=== PATIENT | female | born 1955 | race Hispanic/Latino ===

== ENCOUNTER 2016-12-05 00:52 | Emergency (ER) | payer MEDICAID, OTHER ==
[2016-12-05 01:01] VITALS: TEMP 98.1
--- NOTE | 2016-12-05 01:43 | C.PDOC ---
History Of Present Illness <Zulay Abraham - Last Filed: 12/05/16 07:00> <Neyda Rangel - Last Filed: 12/05/16 07:32> 61-year-old female, PMHx includes Diabetes, Hypertension and Hypercholesterolemia, presents to the emergency department c/o right sided chest wall pain that developed for 2 days. Pt states she has left knee pain from surgery done November 30. Pt notes experiencing right upper back pain that began this morning. Pt states the pain is excruciating that starts from back to chest area that is worse with movement and is reproducible. Pt denies trauma, SOB, palpitation, abdominal pain, fever, chills, nausea, vomiting, or any other complaints. (Zulay Abraham) History Per: Patient History/Exam Limitations: no limitations Onset/Duration Of Symptoms: Days Current Symptoms Are (Timing): Still Present Severity: Mild Location Of Pain/Discomfort: Other (Chest wall pain) Exacerbating Factors: Movement Recent travel outside of the [place]: No Additional History Per: Patient Abnormal Vaginal Bleeding: No <Zulay Abraham - Last Filed: 12/05/16 07:00> <Neyda Rangel - Last Filed: 12/05/16 07:32> Time Seen by Provider: 12/05/16 01:36 Chief Complaint (Nursing): Abdominal Pain Past Medical History - Medical History PMH: Diabetes, HTN, Hypercholesterolemia Family History: States: Unknown Family Hx - Social History Hx Tobacco Use: No Hx Alcohol Use: No Hx Substance Use: No - Immunization History Hx Tetanus Toxoid Vaccination: No Hx Influenza Vaccination: No Hx Pneumococcal Vaccination: No <Zulay Abraham - Last Filed: 12/05/16 07:00> Review Of Systems Except As Marked, All Systems Reviewed And Found Negative. Constitutional: Negative for: Fever, Chills, Other (Trauma) Cardiovascular: Positive for: Chest Pain. Negative for: Palpitations Respiratory: Negative for: Shortness of Breath Gastrointestinal: Negative for: Nausea, Vomiting, Abdominal Pain Musculoskeletal: Positive for: Back Pain (Upper back pain) <Zulay Abraham - Last Filed: 12/05/16 07:00> Physical Exam - Physical Exam Appears: Non-toxic, No Acute Distress Skin: Warm, Dry, Other (Left foot blister at the base of the 4-5 toe, filled with clear fluid) Head: Atraumatic, Normacephalic Eye(s): bilateral: Normal Inspection Neck: Trachea Midline, Supple Chest: Symmetrical, No Deformity, Tenderness (Reproducible tenderness to the right chest wall over the 9-12 intercostal spaces.) Cardiovascular: Rhythm Regular Respiratory: Normal Breath Sounds, No Rales, No Rhonchi, No Wheezing Gastrointestinal/Abdominal: Soft, No Tenderness Back: Normal Inspection, No CVA Tenderness, No Vertebral Tenderness, No Paraspinal Tenderness Extremity: No Pedal Edema, Capillary Refill (<2secs), No Deformity, Other (Left knee inmobilizer and incision over the left knee, healing well. No erythema or draining) Neurological/Psych: Oriented x3, Normal Speech, Normal Cognition, Normal Sensation <Zulay Abraham - Last Filed: 12/05/16 07:00> ED Course And Treatment - Laboratory Results Result Diagrams: 12/05/16 03:09 12/05/16 03:09 ECG: Interpreted By Me, Viewed By Me ECG Interpretation: No Changes From Prior Interpretation Of ECG: Sinus tachy@106/min, NAD, RSR, no acute T wave or ST-T changes. O2 Sat by Pulse Oximetry: 99 (RA) Pulse Ox Interpretation: Normal - CT Scan/US CT abd/pelvis Other Rad Studies (CT/US): Radiology Report Reviewed CT/US Interpretation: EXAM: CT Abdomen and Pelvis Without Intravenous Contrast. CLINICAL HISTORY: 61 years old, female; Pain and signs and symptoms ; Vomiting; Abdominal pain; Flank; Right;. Additional info: Right flank, right abd pain. TECHNIQUE: Axial computed tomography images of the abdomen and pelvis without intravenous contrast. This. CT exam was performed using one or more of the following dose reduction techniques: automated. exposure control, adjustment of the mA and/or kV according to patient size, and/or use of iterative. reconstruction technique. Coronal and sagittal reformatted images were created and reviewed. COMPARISON: No relevant prior studies available. FINDINGS: Lower thorax: Minimal atelectasis. ABDOMEN: Liver: Unremarkable. Gallbladder and bile ducts: Calcified gallstones. No ductal dilation. Pancreas : Unremarkable. No ductal dilation. Spleen: No splenomegaly. Adrenals: No mass. Kidneys and ureters: No renal calculi. No hydronephrosis. Stomach and bowel: Few scattered diverticula within colon. No associated inflammatory stranding. No definite mural thickening. No obstruction. Appendix: Borderline enlarged proximal appendix, 6-7 mm in diameter. No definite associated. inflammatory stranding. PELVIS: Bladder: Unremarkable. No stones. Reproductive: Unremarkable as visualized. ABDOMEN and PELVIS: Intraperitoneal space: No significant fluid collection. No free air. Bones/joints: Mild degenerative changes of spine. No acute fracture. Soft tissues: Unremarkable. Vasculature: Mild atherosclerotic disease. No abdominal aortic aneurysm. Lymph nodes: No pathologically enlarged lymph nodes. IMPRESSION: 1. No CT evidence of urolithiasis. 2. Borderline enlarged appendix. No definite inflammation. Clinical correlation is needed. 3. Cholelithiasis. 4. Incidental/non-acute findings are described above. Thank you for allowing us to participate in the care of your patient. Dictated and Authenticated by: Rg Ramsey MD. 12/05 4:35 AM Eastern Time ([place] & [place]) Progress Note: Impression: 61 y/o female c/o right sided chest wall pain for 2 days. Plans: CT Abd/Pel, EKG, Blood labs, CXR, Zofran, IV fluids, Ultram. On re-evaluation, pt is afebrile, hemodynamicaly stable. Non-toxic. Pt is sleeping in bed comfortably, not in any apparent distress. Pt had episode of vomiting in ED, " feels better after vomiting". <Zulay Abraham - Last Filed: 12/05/16 07:00> - Laboratory Results Result Diagrams: 12/05/16 03:09 12/05/16 03:09 Progress Note: Pt was signed out to me at 7am pending discharge. Pt was evaluated at 7am. Pt notes she had pain "under my right rib". TTP RUQ. No TTP RLQ. (+) fluid blister on left foot. No pain to foot. no trauma . Pulse 2+ . Cap refill < 2 sec. No n/v/d or fever. Tolerating PO. No chest pain. No sob. Discussed CT results with pt including enlarged appendix. Offered observation for pt. Pt refused noting she feels well and requests discharge. Pt does not want to stay in the hospital. Discsused with risks and benefits and pt reiterates understanding. Pt was instructed to follow up with PMD/ podiatry in 1 -2 days. <Neyda Rangel - Last Filed: 12/05/16 07:32> Disposition Counseled Patient/Family Regarding: Diagnosis, Need For Followup - Disposition Disposition Time: 07:01 <Zulay Abraham - Last Filed: 12/05/16 07:00> <Neyda Rangel - Last Filed: 12/05/16 07:32> - Disposition Referrals: Ben Kenney MD [Staff Provider] - Disposition: HOME/ ROUTINE Condition: STABLE - Clinical Impression Clinical Impression: Abdominal pain, UTI (urinary tract infection) - Scribe Statement The provider has reviewed the documentation as recorded by the Scribe <Zulay Abraham - Last Filed: 12/05/16 07:00> <Neyda Rangel - Last Filed: 12/05/16 07:32> - Scribe Statement Kit blum All medical record entries made by the Scribe were at my direction and personally dictated by me. I have reviewed the chart and agree that the record accurately reflects my personal performance of the history, physical exam, medical decision making, and the department course for this patient. I have also personally directed, reviewed, and agree with the discharge instructions and disposition. (Zulay Abraham)
[2016-12-05] MEDS ORDERED: Sodium Chloride 0.9% 500 ML IV ONE (02:12)
[2016-12-05 03:16] LABS: BASO # 0.1 K/uL (0.0-0.2); BASO % 0.7 % (0.0-2.0); EOS # 0.3 K/uL (0.0-0.7); EOS % 3.7 % (0.0-4.0); HEMATOCRIT 32.1 % (34.0-47.0); LYMPH # 2.5 K/uL (1.0-4.3); LYMPH % 30.4 % (20.0-40.0); MEAN CELL VOLUME 89.1 fL (81.0-99.0); MEAN CORPUSCULAR HEMOGLOBIN 30.3 pg (27.0-31.0); MEAN CORPUSCULAR HGB CONC 34.1 g/dL (33.0-37.0); MEAN PLATELET VOLUME 6.7 fL (7.2-11.7); MONO # 0.6 K/uL (0.0-0.8); RED CELL DISTRIBUTION WIDTH 14.4 % (11.5-14.5); WHITE BLOOD COUNT 8.3 K/uL (4.8-10.8)
[2016-12-05 03:22] LABS: CHLORIDE 103 mmol/L (98-107); POTASSIUM 4.2 mmol/L (3.6-5.2); SODIUM 141 mmol/L (132-148)
[2016-12-05 03:24] LABS: ALB/GLOB RATIO 1.2 (1.0-2.1); ALKALINE PHOSPHATASE 55 U/L (38-126); AST/SGOT 18 U/L (14-36); BILIRUBIN,TOTAL 0.6 mg/dL (0.2-1.3); CARBON DIOXIDE 27 mmol/L (22-30); GFR AFRICAN-AMERICAN > 60; TOTAL PROTEIN 7.5 g/dL (6.3-8.3)
[2016-12-05 03:25] LABS: ALT/SGPT 17 U/L (9-52); BLOOD UREA NITROGEN 23 mg/dL (7-17); CALCIUM 8.9 mg/dl (8.6-10.4); GLUCOSE,RANDOM 184 mg/dL (65-105)
--- NOTE | 2016-12-05 04:36 | CT ---
EXAM: CT Abdomen and Pelvis Without Intravenous Contrast CLINICAL HISTORY: 61 years old, female; Pain and signs and symptoms; Vomiting; Abdominal pain; Flank; Right; Additional info: Right flank, right abd pain TECHNIQUE: Axial computed tomography images of the abdomen and pelvis without intravenous contrast. This CT exam was performed using one or more of the following dose reduction techniques: automated exposure control, adjustment of the mA and/or kV according to patient size, and/or use of iterative reconstruction technique. Coronal and sagittal reformatted images were created and reviewed. COMPARISON: No relevant prior studies available. FINDINGS: Lower thorax: Minimal atelectasis. ABDOMEN: Liver: Unremarkable. Gallbladder and bile ducts: Calcified gallstones. No ductal dilation. Pancreas: Unremarkable. No ductal dilation. Spleen: No splenomegaly. Adrenals: No mass. Kidneys and ureters: No renal calculi. No hydronephrosis. Stomach and bowel: Few scattered diverticula within colon. No associated inflammatory stranding. No definite mural thickening. No obstruction. Appendix: Borderline enlarged proximal appendix, 6-7 mm in diameter. No definite associated inflammatory stranding. PELVIS: Bladder: Unremarkable. No stones. Reproductive: Unremarkable as visualized. ABDOMEN and PELVIS: Intraperitoneal space: No significant fluid collection. No free air. Bones/joints: Mild degenerative changes of spine. No acute fracture. Soft tissues: Unremarkable. Vasculature: Mild atherosclerotic disease. No abdominal aortic aneurysm. Lymph nodes: No pathologically enlarged lymph nodes. IMPRESSION: 1. No CT evidence of urolithiasis. 2. Borderline enlarged appendix. No definite inflammation. Clinical correlation is needed. 3. Cholelithiasis. 4. Incidental/non-acute findings are described above.
[2016-12-05 06:59] VITALS: RESP 16
[2016-12-05 07:01] LABS: RBC URINE 1 /hpf (0-3); URINE BACTERIA FEW (<OCC); URINE BILIRUBIN NEGATIVE (NEGATIVE); URINE BLOOD NEGATIVE (NEGATIVE); URINE COLOR Yellow (YELLOW); URINE GLUCOSE (UA) 3+ mg/dL (Normal); URINE KETONE TRACE mg/dL (NEGATIVE); URINE LEUKOCYTE ESTERASE 1+ Leu/uL (Negative); URINE PROTEIN 1+ mg/dL (NEGATIVE); URINE UROBILINOGEN NORMAL mg/dL (0.2-1.0); WBC URINE 37 /hpf (0-5)
[2016-12-05 07:22] VITALS: O2SAT 100
[2016-12-05] MEDS ORDERED: cefTRIAXone IV 1 gm in Dextros 0 ML IVPB ONE (07:25)
[2016-12-05 08:57] VITALS: BP 188/99; PULSE 104
--- NOTE | 2016-12-05 11:04 | RAD ---
HISTORY: abd pain All abdominal pain. COMPARISON: 08/23/2016. TECHNIQUE: Chest PA and lateral FINDINGS: LUNGS: No active pulmonary disease. PLEURA: No significant pleural effusion identified. No pneumothorax apparent. CARDIOVASCULAR: No radiographic findings to suggest acute or significant cardiovascular disease. OSSEOUS STRUCTURES: No significant abnormalities. VISUALIZED UPPER ABDOMEN: Normal. OTHER FINDINGS: None. IMPRESSION: No active disease. No significant interval change compared to the prior examination(s).
--- NOTE | 2016-12-07 02:01 | CARD ---
APPROVED REPORT EKG Measurement Heart [id number] <Conclusion> Sinus tachycardia RSR' or QR pattern in V1 suggests right ventricular conduction delay Septal infarct, age undetermined Abnormal ECG
== END 2016-12-05 09:58 | disposition home or self-care (01) ==
LOC: C.ER 00:52
DX: N39.0 Urinary tract infection, site not specified (principal)
CPT/HCPCS: 71020; 74176; 80053; 81001; 82948; 83690; 84484; 85025; 85610; 85730; 93005; 96361; 96374; 96375; 99285; J0696; J2405; J2765; J7040

== ENCOUNTER 2017-01-13 09:32 | Emergency (ER) | payer MEDICAID, OTHER ==
[2017-01-13 09:50] VITALS: O2SAT 99
--- NOTE | 2017-01-13 11:01 | C.PDOC ---
History Of Present Illness 61 y/o female presents to ED who reports slip and fall today, complaining of pain to the left knee. Patient reports surgery to left knee 2 months ago for patellar fracture. Denies any head injury or LOC, new weakness, or new numbness. No other injuries reported. Time Seen by Provider: 01/13/17 09:46 Chief Complaint (Nursing): Lower Extremity Problem/Injury History Per: Patient History/Exam Limitations: no limitations Onset/Duration Of Symptoms: Hrs Current Symptoms Are (Timing): Still Present Recent travel outside of the [place]: No Past Medical History Reviewed: Historical Data, Nursing Documentation, Vital Signs Vital Signs: Last Vital Signs Temp 97.9 F 01/13/17 14:19 Pulse 78 01/13/17 14:19 Resp 20 01/13/17 14:19 BP 172/84 H 01/13/17 14:19 Pulse Ox 99 01/13/17 14:19 - Medical History PMH: Diabetes, HTN, Hypercholesterolemia - [facility] Procedures OTH NONOPER CARD AND VASC MEASURE (01/07/14) OTHER SKIN & SUBQ I D (09/29/13) Family History: States: Unknown Family Hx - Social History Hx Tobacco Use: No Hx Alcohol Use: No Hx Substance Use: No - Immunization History Hx Tetanus Toxoid Vaccination: No Hx Influenza Vaccination: No Hx Pneumococcal Vaccination: No Review Of Systems Except As Marked, All Systems Reviewed And Found Negative. Constitutional: Negative for: Fever, Chills Cardiovascular: Negative for: Chest Pain Respiratory: Negative for: Cough, Shortness of Breath, Wheezing Gastrointestinal: Negative for: Nausea, Vomiting, Abdominal Pain Musculoskeletal: Positive for: Other (Left Knee Pain) Skin: Negative for: Rash Neurological: Negative for: Weakness, Numbness Physical Exam - Physical Exam Appears: Non-toxic, No Acute Distress Skin: Normal Color, Warm, Dry Head: Atraumatic, Normacephalic Eye(s): bilateral: Normal Inspection Neck: Normal ROM, No Midline Cervical Tenderness, No Paracervical Tenderness, Supple Chest: Symmetrical Cardiovascular: Rhythm Regular Respiratory: Normal Breath Sounds, No Rales, No Rhonchi, No Wheezing Back: Normal Inspection, No Vertebral Tenderness, No Paraspinal Tenderness Extremity: Normal ROM, Capillary Refill (< 2 sec.), No Deformity, Other ( diffuse anterior left knee tenderness and swelling, unable to fully extend the knee due to pain) Neurological/Psych: Oriented x3, Normal Speech, Normal Motor, Normal Sensation Gait: Unable To Assess ED Course And Treatment O2 Sat by Pulse Oximetry: 99 (RA) Pulse Ox Interpretation: Normal - Other Rad Left Knee X-Ray X-Ray: Viewed By Me, Read By Radiologist Interpretation: FINDINGS: BONES: Fracture dislocation of the patella. Two fracture fragments are by approximately 3.7 cm. Soft tissue swelling attests to the acuity of the fracture. JOINTS: Normal. No osteoarthritis. JOINT EFFUSION: None. OTHER FINDINGS: None. IMPRESSION: Acute comminuted fracture dislocation of the left patella. Separation the major fracture fragments by 3.7 cm. Medical Decision Making Medical Decision Making: PLAN: * Left Knee X-Rays * Tylenol * Reassess PROGRESS: XRay reviewed by me and Dr Wheeler. Radiologist report reviewed stating acute patellar fracture. Patient had history of prior fracture, xray film does not appear acute. Knee immobilizer applied. Instruct patient to follow up with her surgeon. Transportation arranged for patient to return home Disposition - Disposition Referrals: Uriel Landeros MD [Staff Provider] - Disposition: HOME/ ROUTINE Disposition Time: 14:00 Condition: STABLE Additional Instructions: Follow up with your primary medical doctor and surgeon in 2-5 days for further evaluation. Take pain medicine as needed. Return to the emergency department at any time if symptoms persist or worsen. Instructions: Patellar Fracture (ED), Knee Pain (ED) - POA Present On Arrival: None - Clinical Impression Clinical Impression: Contusion of knee - PA / CORPORATE COMPLIANCE OFFICER / Resident Statement MD/DO has reviewed & agrees with the documentation as recorded. - Scribe Statement The provider has reviewed the documentation as recorded by the Larry Piña All medical record entries made by the Larry were at my direction and personally dictated by me. I have reviewed the chart and agree that the record accurately reflects my personal performance of the history, physical exam, medical decision making, and the department course for this patient. I have also personally directed, reviewed, and agree with the discharge instructions and disposition.
--- NOTE | 2017-01-13 11:56 | RAD ---
PROCEDURE: Left Knee Radiographs. HISTORY: Pain. COMPARISON: None. FINDINGS: BONES: Fracture dislocation of the patella. Two fracture fragments are by approximately 3.7 cm. Soft tissue swelling attests to the acuity of the fracture. JOINTS: Normal. No osteoarthritis. JOINT EFFUSION: None. OTHER FINDINGS: None. IMPRESSION: Acute comminuted fracture dislocation of the left patella. Separation the major fracture fragments by 3.7 cm.
[2017-01-13 14:21] VITALS: BP 172/84; PULSE 78; RESP 20; TEMP 97.9
== END 2017-01-13 14:25 | disposition home or self-care (01) ==
LOC: C.ER 09:32
DX: S80.02XA Contusion of left knee, initial encounter (principal); W01.0XXA Fall on same level from slipping, tripping and stumbling without subsequent striking against object, initial encounter; Y92.9 Unspecified place or not applicable

== ENCOUNTER 2017-01-16 16:16 | Inpatient (IN) | payer OTHER ==
[2017-01-16 17:42] LABS: BASO % 0.7 % (0.0-2.0); EOS # 0.1 K/uL (0.0-0.7); HEMOGLOBIN 10.2 g/dL (11.0-16.0); LYMPH # 1.9 K/uL (1.0-4.3); MEAN CELL VOLUME 86.1 fL (81.0-99.0); MEAN CORPUSCULAR HEMOGLOBIN 28.5 pg (27.0-31.0); MEAN CORPUSCULAR HGB CONC 33.1 g/dL (33.0-37.0); MEAN PLATELET VOLUME 7.3 fL (7.2-11.7); MONO # 0.4 K/uL (0.0-0.8); MONO % 6.3 % (0.0-10.0); NEUT # 4.5 K/uL (1.8-7.0); RBC 3.57 Mil/uL (3.80-5.20); WHITE BLOOD COUNT 7.1 K/uL (4.8-10.8)
[2017-01-16 17:51] LABS: GFR AFRICAN-AMERICAN > 60; GFR NON-AFRICAN AMERICAN > 60
[2017-01-16 17:52] LABS: ALT/SGPT 20 U/L (9-52); AST/SGOT 15 U/L (14-36); BLOOD UREA NITROGEN 24 mg/dL (7-17); CALCIUM 9.3 mg/dl (8.6-10.4)
--- NOTE | 2017-01-16 18:21 | C.PDOC ---
History Of Present Illness Patient is a 61 y/o female, whose PMHx includes depression, that brought to the ED by BLS for psych evaluation. Patient states she has been feeling " overwhelmed and stressed" by her son, who has bipolar disorder. Pt states she called her counselor and had told them that she "doesn't want to be here", but patient denies any suicidal ideation, or suicidal plan in the ER, and states she didn't mean to say that. Patient also complains of left knee and foot pain for the past several days. Patient reports being seen here for left knee pain 3 days ago, and was found to have left patellar fracture. Also reports being seen by revenue specialist for left foot infection., and reports her foot was burned, but is not healing yet. Otherwise, denies any sensory changes, weakness, numbness, fever, or any other associated symptoms at this time. Chief Complaint (Nursing): Psychiatric Evaluation History Per: Patient History/Exam Limitations: no limitations Onset/Duration Of Symptoms: Days Current Symptoms Are (Timing): Still Present Suicide/Self Injury Attempted (Context): None Modifying Factor(s): None Associated Symptoms: denies: Suicidal Thoughts, Suicidal Plan Involuntary Hold By: None Recent travel outside of the [place]: No Additional History Per: Patient, EMS Past Medical History Reviewed: Historical Data, Nursing Documentation, Vital Signs Vital Signs: Last Vital Signs Temp 98.3 F 01/16/17 16:45 Pulse 86 01/16/17 16:45 Resp 20 01/16/17 16:45 BP 175/81 H 01/16/17 16:45 Pulse Ox 96 01/16/17 18:39 - Medical History PMH: Depression, Diabetes, HTN, Hypercholesterolemia - [facility] Procedures OTH NONOPER CARD AND VASC MEASURE (01/07/14) OTHER SKIN & SUBQ I D (09/29/13) Family History: States: Unknown Family Hx - Social History Hx Tobacco Use: No Hx Alcohol Use: No Hx Substance Use: No - Immunization History Hx Tetanus Toxoid Vaccination: No Hx Influenza Vaccination: No Hx Pneumococcal Vaccination: No Review Of Systems Except As Marked, All Systems Reviewed And Found Negative. Constitutional: Negative for: Fever, Chills Cardiovascular: Negative for: Chest Pain, Palpitations Respiratory: Negative for: Shortness of Breath Gastrointestinal: Negative for: Nausea, Vomiting, Abdominal Pain Musculoskeletal: Positive for: Leg Pain (left knee), Foot Pain (left) Skin: Negative for: Rash Neurological: Negative for: Weakness, Numbness Psych: Negative for: Suicidal ideation Physical Exam - Physical Exam Appears: Non-toxic, No Acute Distress Skin: Warm, Dry, Other (erythema to dorsum of left foot) Head: Atraumatic, Normacephalic Eye(s): bilateral: Normal Inspection, EOMI Neck: Normal ROM, Supple Chest: Symmetrical, No Tenderness Cardiovascular: Rhythm Regular, No Murmur Respiratory: Normal Breath Sounds, No Rales, No Rhonchi, No Wheezing Extremity: Normal ROM, Tenderness (left knee; tenderness to dorsum aspect of 3rd , 4th, and 5th metacarpal of left foot, granulation noted to left foot ), No Pedal Edema, No Calf Tenderness, Capillary Refill (<2 sec.), No Deformity, Swelling (left knee, effusion of the left knee), Other ( left foot with ulcer, no drainage) Pulses: Left Dorsalis Pedis: Normal, Right Dorsalis Pedis: Normal Neurological/Psych: Oriented x3, Normal Speech, Normal Cognition, Normal Motor, Normal Sensation ED Course And Treatment - Laboratory Results Result Diagrams: 01/16/17 17:37 01/16/17 17:37 O2 Sat by Pulse Oximetry: 96 (on RA) Pulse Ox Interpretation: Normal - Radiology CXR: Interpreted by Me CXR Interpretation: Yes: No Acute Disease Progress Note: Blood work, urinalysis, CXR, and left foot x-ray ordered and reviewed. Patient was cleared by lock up worker. Case was reported to who admits for pt's PMD . Disposition - Disposition Disposition: HOSPITALIZED Disposition Time: 19:01 Condition: STABLE - Clinical Impression Clinical Impression: Diabetic foot ulcer, Depression, Knee pain - PA / HEAD OF SALES [employer] MARKETING / Resident Statement MD/DO has reviewed & agrees with the documentation as recorded. - Scribe Statement The provider has reviewed the documentation as recorded by the Rosemaryibpepe Mercado All medical record entries made by the Rosemaryibpepe were at my direction and personally dictated by me. I have reviewed the chart and agree that the record accurately reflects my personal performance of the history, physical exam, medical decision making, and the department course for this patient. I have also personally directed, reviewed, and agree with the discharge instructions and disposition. Decision To Admit - Pt Status Changed To: Hospital Disposition Of: Observation - . Bed Request Type: Regular Admitting Physician: Kg Mercado Patient Diagnosis: Diabetic foot ulcer, Depression, Knee pain
[2017-01-16] MEDS ORDERED: Piperacillin/Tazobact 3.375 gm 100 ML IVPB ONE (20:36)
[2017-01-16] MEDS: Piperacillin/Tazobact 3.375 gm 100 ML IV STA ×2 (20:38→22:00)
[2017-01-16] MEDS: Vancomycin 1 GM 1 GM/250 ML BAG IV STA ×2 (20:38→22:43)
[2017-01-16] MEDS ORDERED: Vancomycin 1 GM 1 GM/250 ML BAG IVPB ONE (22:34)
[2017-01-17 01:36] VITALS: RESP 20
[2017-01-17 07:54] LABS: BARBITURATES, UR NEGATIVE (NEGATIVE); BENZODIAZEPINES, UR NEGATIVE (NEGATIVE)
[2017-01-17 07:57] LABS: OPIATES, UR NEGATIVE (NEGATIVE); PHENCYCLIDINE, UR NEGATIVE (NEGATIVE); SQUAMOUS EPITHIAL 1 /hpf (0-5); URINE BACTERIA RARE (<OCC); URINE BILIRUBIN NEGATIVE (NEGATIVE); URINE BLOOD NEGATIVE (NEGATIVE); URINE CLARITY Clear (Clear); URINE COLOR Yellow (YELLOW); URINE GLUCOSE (UA) 1+ mg/dL (Normal); URINE LEUKOCYTE ESTERASE 1+ Leu/uL (Negative); URINE NITRATE NEGATIVE (NEGATIVE); URINE PROTEIN NEGATIVE (NEGATIVE); URINE UROBILINOGEN NORMAL mg/dL (0.2-1.0)
--- NOTE | 2017-01-17 09:51 | RAD ---
PROCEDURE: Left Foot Radiographs. HISTORY: diabetic foot infection COMPARISON: None. FINDINGS: BONES: . No fracture. JOINTS: First metatarsal-phalangeal joint hypertrophic arthrosis SOFT TISSUES: Increased soft tissue swelling and faint increased density with apparent bandage overlying the metatarsal phalangeal joint level. Relative osteopenia along the medial aspect of the 5th and also 4th metatarsal heads here is noted. No gross periosteal reaction appreciated no lateral cortical ill definition appreciated. OTHER FINDINGS: None. IMPRESSION: Lateral 5th metatarsal phalangeal joint level soft tissue swelling with increased density - findings probably relating to patient's foot infection-diabetic. Although no gross periosteal reaction or gross cortical destruction is appreciated to strongly suggest osteomyelitis, the marked medial osteopenia of the medial 5th metatarsal head and to a lesser extent the 4th and 3rd metatarsal heads) limits optimal evaluation here. . If more sensitive evaluation is needed consider MRI of the left foot
--- NOTE | 2017-01-17 10:40 | RAD ---
PROCEDURE: CHEST RADIOGRAPH, 1 VIEW HISTORY: depression, diabetic foot infection COMPARISON: 12/05/2016 FINDINGS: LUNGS: No focal infiltrate or effusion. PLEURA: No pneumothorax or pleural fluid seen. CARDIOVASCULAR: Normal. OSSEOUS STRUCTURES: No significant abnormalities. VISUALIZED UPPER ABDOMEN: Normal. OTHER FINDINGS: None. IMPRESSION: No active disease.
[2017-01-17] MEDS: Piperacillin/Tazobact 3.375 GM in Sodium Chloride 100 ML IVPB SCH ×2 (10:48→17:22)
[2017-01-17] MEDS: Enoxaparin 40 mg Syringe SC SCH ×2 (10:48→13:07)
--- NOTE | 2017-01-17 11:22 | CP.PCM.HP ---
Past Patient History - Infectious Disease Hx of Infectious Diseases: None - Past Medical History & Family History Past Medical History?: Yes - Past Social History Smoking Status: Never Smoked - CARDIAC Hx Cardiac Disorders: Yes Hx Hypercholesterolemia: Yes Hx Hypertension: Yes - PULMONARY Hx Respiratory Disorders: No - NEUROLOGICAL Hx Neurological Disorder: Yes Hx Vertigo: Yes - HEENT Hx HEENT Problems: No - RENAL Hx Chronic Kidney Disease: No - ENDOCRINE/METABOLIC Hx Endocrine Disorders: Yes Hx Diabetes Mellitus Type 2: Yes - HEMATOLOGICAL/ONCOLOGICAL Hx Blood Disorders: No - INTEGUMENTARY Hx Dermatological Problems: Yes - MUSCULOSKELETAL/RHEUMATOLOGICAL Hx Musculoskeletal Disorders: Yes Hx Falls: Yes - GASTROINTESTINAL Hx Gastrointestinal Disorders: No - GENITOURINARY/GYNECOLOGICAL Hx Genitourinary Disorders: No - PSYCHIATRIC Hx Psychophysiologic Disorder: Yes Hx Depression: Yes Hx Substance Use: No - SURGICAL HISTORY Hx Surgeries: Yes Hx Section: Yes Hx Musculoskeletal Surgery: Yes (Left knee surgery) - ANESTHESIA Hx Anesthesia: Yes Hx Anesthesia Reactions: No Hx Malignant Hyperthermia: No Has any member of the family had a problem w/ anesthesia?: No Meds Allergies/Adverse Reactions: Allergies Allergy/AdvReac Type Severity Reaction Status Date / Time Anesthetics - Amide Type Allergy Severe Verified 01/13/17 09:43 ibuprofen [From Motrin] Allergy Severe SWELLING Verified 01/13/17 09:43 morphine Allergy Severe ANAPHYLAXIS Verified 01/13/17 09:43 NSAIDS (Non-Steroidal Allergy Severe SWELLING Verified 01/13/17 09:43 Anti-Inflamma codeine Allergy Intermediate Verified 01/13/17 09:43 Physical Exam - Constitutional Appears: Well - Head Exam Head Exam: ATRAUMATIC, NORMAL INSPECTION, NORMOCEPHALIC - Eye Exam Eye Exam: EOMI, Normal appearance, PERRL Pupil Exam: NORMAL ACCOMODATION, PERRL - ENT Exam ENT Exam: Mucous Membranes Moist, Normal Exam - Neck Exam Neck exam: Positive for: Normal Inspection - Respiratory Exam Respiratory Exam: Decreased Breath Sounds - Cardiovascular Exam Cardiovascular Exam: REGULAR RHYTHM, +S1, +S2 - GI/Abdominal Exam GI & Abdominal Exam: Diminished Bowel Sounds, Soft - Rectal Exam Rectal Exam: Deferred Results - Vital Signs Recent Vital Signs: Last Vital Signs Temp 97.6 F 01/17/17 08:56 Pulse 75 01/17/17 08:56 Resp 20 01/17/17 08:56 BP 161/83 H 01/17/17 08:56 Pulse Ox 99 07/11/17 08:56 - Labs Result Diagrams: 01/16/17 17:37 01/16/17 17:37 Labs: Laboratory Results - last 24 hr 01/17/17 01/17/17 01/17/17 07:29 07:29 07:34 POC Glucose (mg/dL) 229 H Urine Color Yellow Urine Clarity Clear Urine pH 5.0 Ur Specific [place] 1.013 Urine Protein Negative Urine Glucose (UA) 1+ Urine Ketones Negative Urine Blood Negative Urine Nitrate Negative Urine Bilirubin Negative Urine Urobilinogen Normal Ur Leukocyte Esterase 1+ H Urine WBC (Auto) 15 H Urine RBC (Auto) < 1 Ur Squamous Epith Cells 1 Urine Bacteria Rare Urine Opiates Screen Negative Urine Methadone Screen Negative Ur Barbiturates Screen Negative Ur Phencyclidine Scrn Negative Ur Amphetamines Screen Negative U Benzodiazepines Scrn Negative U Oth Cocaine Metabols Negative U Cannabinoids Screen Negative
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
[2017-01-17] MEDS: (Novolog) Insulin Aspart, Recombinant 100 u/ml 10 ml vial SC SCH ×2 (12:49→22:21)
[2017-01-17] MEDS: Vancomycin 1 gm/NS 200 ml 1 GM/200 ML BAG IVPB SCH (13:29)
[2017-01-17] MEDS ORDERED: Collagenase 250 Units/gm Ointment(30 gm) TOP SCH (17:00)
[2017-01-18] MEDS: Vancomycin 1 gm/NS 200 ml 1 GM/200 ML BAG IVPB SCH ×3 (00:30→14:18)
[2017-01-18] MEDS: Piperacillin/Tazobact 3.375 GM in Sodium Chloride 100 ML IVPB SCH ×3 (02:10→17:16)
[2017-01-18] MEDS: (Novolog) Insulin Aspart, Recombinant 100 u/ml 10 ml vial SC SCH ×4 (07:52→21:16)
[2017-01-18 08:05] LABS: BASO # 0.1 K/uL (0.0-0.2); BASO % 1.2 % (0.0-2.0); EOS # 0.3 K/uL (0.0-0.7); EOS % 4.5 % (0.0-4.0); HEMOGLOBIN 10.1 g/dL (11.0-16.0); LYMPH # 2.8 K/uL (1.0-4.3); LYMPH % 37.9 % (20.0-40.0); MEAN CELL VOLUME 85.9 fL (81.0-99.0); MEAN CORPUSCULAR HEMOGLOBIN 28.9 pg (27.0-31.0); MEAN CORPUSCULAR HGB CONC 33.6 g/dL (33.0-37.0); MEAN PLATELET VOLUME 7.1 fL (7.2-11.7); MONO # 0.5 K/uL (0.0-0.8); NEUT # 3.7 K/uL (1.8-7.0); NEUT % 49.4 % (50.0-75.0); RBC 3.5 Mil/uL (3.80-5.20); RED CELL DISTRIBUTION WIDTH 14.1 % (11.5-14.5); WHITE BLOOD COUNT 7.4 K/uL (4.8-10.8)
[2017-01-18 08:11] LABS: ALBUMIN 3.6 g/dL (3.5-5.0)
[2017-01-18 08:14] LABS: ALT/SGPT 19 U/L (9-52); AST/SGOT 16 U/L (14-36); BLOOD UREA NITROGEN 25 mg/dL (7-17); CALCIUM 9.2 mg/dl (8.6-10.4); GFR AFRICAN-AMERICAN > 60; GFR NON-AFRICAN AMERICAN 57
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
--- NOTE | 2017-01-18 08:41 | RAD ---
Left knee 7 views History: Injury. Comparison: None available. Technique: 7 views of the left knee were performed. Findings: Displaced and comminuted fracture of the inferior bony patella. Approximately 3.7 centimeter superior distraction of the proximal fracture fragment. Medial and lateral compartment joint space narrowing consistent with osteoarthrosis. Large suprapatellar joint effusion. Probable hematoma in the soft tissues anterior to the knee. Suggestion of postoperative changes in the patella. Atherosclerotic disease. Punctate radiopaque density seen within the lateral soft tissues at the level of the distal medullary cavity of the left femur, nonspecific. Clinical correlation. Impression: Displaced and comminuted fracture of the inferior bony patella. Approximately 3.7 centimeter superior distraction of the proximal fracture fragment. Medial and lateral compartment joint space narrowing consistent with osteoarthrosis. Large suprapatellar joint effusion. Probable hematoma in the soft tissues anterior to the knee. Suggestion of postoperative changes in the patella. Atherosclerotic disease. Punctate radiopaque density seen within the lateral soft tissues at the level of the distal medullary cavity of the left femur, nonspecific. Clinical correlation.
[2017-01-18] MEDS ORDERED: Silver Sulfadiazine 1% Cream (20 gm) TOP SCH (10:00)
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
--- NOTE | 2017-01-18 10:52 | MRI ---
MRI left knee History: Swelling and erythema. Injury. Comparison: CT scan dated 01/17/2017 Technique: Multi-echo multiplanar sequences were performed through the left knee without the use of intravenous contrast. Findings: Prominent complete fracture deformity through the lower pole of the bony patella with approximately 2 centimeter superior distraction of the superior patellar fragment. Screw tracts are noted within the superior bony fragment consistent with prior surgical change. Reactive edema noted within the superior bony fracture fragment. Anterior to the fracture site there is loculated fluid seen within the prepatellar soft tissues/bursa. Moderate distal quadriceps tendinopathy with a lax tendon. Prominent large partial/near complete tearing of the proximal patellar tendon at the site of the insertion on the inferiorly displaced fracture fragment. A few of the tendon strand fibers may remain intact. Laxity of the tendon strand fibers. Prominent fraying tearing of the medial and lateral patellar retinaculum. Moderate suprapatellar joint effusion with layering hemarthrosis. Patchy reactive bone marrow edema seen within the anterior mid proximal tibia suggestive for bone bruising and or subchondral osseous injury. Fraying with increased signal seen within the distal attachment of the anterior cruciate ligament suggestive for a high-grade sprain and or partial tear. Tendon strand fibers remain at least partially intact. Posterior cruciate ligament is preserved. Linear grade 1 intrasubstance degeneration in the posterior horn of the medial meniscus. Lateral meniscus is preserved. Low-grade sprain of the medial collateral ligament. Lateral collateral ligament complex structures are preserved. Mild cartilage thinning and loss overlying the anterior aspect of the medial femoral condyle. Moderate cartilage thinning and loss overlying the anterior aspect of the lateral femoral condyle. Signal change in the adjacent marrow of the anterior lateral femoral condyle suggestive for bone bruising versus subchondral osseous injury versus osteochondral change. Additional mild reactive edema seen within the posterior lateral femoral condyle. Impression: 1. Prominent complete fracture deformity through the lower pole of the bony patella with approximately 2 centimeter superior distraction of the superior patellar fragment. Screw tracts are noted within the superior bony fragment consistent with prior surgical change. Reactive edema noted within the superior bony fracture fragment. Anterior to the fracture site there is loculated fluid seen within the prepatellar soft tissues/bursa. Moderate distal quadriceps tendinopathy with a lax tendon. Prominent large partial/near complete tearing of the proximal patellar tendon at the site of the insertion on the inferiorly displaced fracture fragment. A few of the tendon strand fibers may remain intact. Laxity of the tendon strand fibers. Prominent fraying tearing of the medial and lateral patellar retinaculum. 2. Moderate suprapatellar joint effusion with layering hemarthrosis. 3. Patchy reactive bone marrow edema seen within the anterior mid proximal tibia suggestive for bone bruising and or subchondral osseous injury. 4. Fraying with increased signal seen within the distal attachment of the anterior cruciate ligament suggestive for a high-grade sprain and or partial tear. Tendon strand fibers remain at least partially intact. 5. Linear grade 1 intrasubstance degeneration in the posterior horn of the medial meniscus. 6. Low-grade sprain of the medial collateral ligament. 7. Mild cartilage thinning and loss overlying the anterior aspect of the medial femoral condyle. 8. Moderate cartilage thinning and loss overlying the anterior aspect of the lateral femoral condyle. Signal change in the adjacent marrow of the anterior lateral femoral condyle suggestive for bone bruising versus subchondral osseous injury versus osteochondral change. Additional mild reactive edema seen within the posterior lateral femoral condyle.
[2017-01-18] MEDS: Enoxaparin 40 mg Syringe SC SCH (11:47)
--- NOTE | 2017-01-18 14:58 | CP.PCM.PN ---
Subjective - Date & Time of Evaluation Date of Evaluation: 01/18/17 Time of Evaluation: 09:00 - Subjective Subjective: cultures pending foot ulcer stable' left knee needs drainage consider rheum eval cont wound care and iv rx Objective - Vital Signs/Intake and Output Vital Signs (last 24 hours): Temp Pulse Resp BP Pulse Ox 98.4 F 72 20 128/72 98 01/18/17 08:26 01/18/17 08:26 01/18/17 08:26 01/18/17 08:26 01/18/17 08:26 Intake and Output: 01/18/17 01/18/17 06:59 18:59 Intake Total 550 Output Total 3 Balance 547 - Medications Medications: Current Medications Aspirin (Ecotrin) 81 mg PO DAILY [facility] Last Admin: 01/18/17 11:41 Dose: 81 mg Docusate Sodium (Colace) 100 mg PO BID [facility] Last Admin: 01/18/17 11:42 Dose: Not Given Enoxaparin Sodium (Lovenox) 40 mg SC DAILY [facility] Last Admin: 01/18/17 11:47 Dose: 40 mg Glimepiride (Amaryl) 2 mg PO ACB [facility] Last Admin: 01/18/17 11:41 Dose: Not Given Piperacillin Sod/Tazobactam (Sod 3.375 gm/ Sodium Chloride) 100 mls @ 200 mls/ hr IVPB Q8H [facility] Last Admin: 01/18/17 11:37 Dose: 200 mls/hr Vancomycin/Sodium Chloride (Vancocin) 1 gm in 200 mls @ 133 mls/hr IVPB Q12H [facility] Stop: 01/22/17 13:31 Last Admin: 01/18/17 14:18 Dose: Not Given Insulin Aspart (Novolog) 0 unit SC [facility] PRN Reason: Protocol Last Admin: 01/18/17 11:43 Dose: Not Given Lisinopril (Zestril) 10 mg PO DAILY [facility] Last Admin: 01/18/17 11:41 Dose: 10 mg [facility] Last Admin: 01/18/17 11:42 Dose: Not Given Mupirocin (Bactroban Ointment) 0 gm TOP DAILY [facility] Last Admin: 01/18/17 14:25 Dose: Not Given Pneumococcal Polyvalent Vaccine (Pneumovax 23 Vaccine) 0.5 ml IM .ONCE ONE Stop: 01/19/17 10:01 Sennosides (Senokot Tab) 8.6 mg PO DAILY [facility] Last Admin: 01/18/17 11:43 Dose: Not Given - Labs Labs: 01/18/17 07:56 01/18/17 07:56 - Constitutional Appears: Non-toxic, Cachectic, Chronically Ill - Head Exam Head Exam: NORMAL INSPECTION, NORMOCEPHALIC - Eye Exam Eye Exam: PERRL. absent: Scleral icterus - ENT Exam ENT Exam: Mucous Membranes Dry - Neck Exam Neck Exam: absent: Lymphadenopathy - Respiratory Exam Respiratory Exam: Decreased Breath Sounds - Cardiovascular Exam Cardiovascular Exam: REGULAR RHYTHM - GI/Abdominal Exam GI & Abdominal Exam: Distended, Soft - Rectal Exam Rectal Exam: Deferred - Exam Exam: NORMAL INSPECTION - Extremities Exam Extremities Exam: Tenderness. absent: Calf Tenderness, Pedal Edema Additional comments: left knee swelling + - Back Exam Back Exam: absent: CVA tenderness (L), CVA tenderness (R) Assessment and Plan (1) Diabetic foot ulcer Status: Acute (2) Cellulitis of toe of left foot Status: Acute - Assessment and Plan (Free Text) Assessment: cont iv rx/ wound care
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
--- NOTE | 2017-01-18 18:19 | CP.PCM.PN ---
Subjective - Date & Time of Evaluation Date of Evaluation: 01/18/17 Time of Evaluation: 09:00 - Subjective Subjective: clinically same Objective - Vital Signs/Intake and Output Vital Signs (last 24 hours): Temp Pulse Resp BP Pulse Ox 98.4 F 74 20 155/82 H 96 01/18/17 16:47 01/18/17 16:47 01/18/17 16:47 01/18/17 16:47 01/18/17 16:47 Intake and Output: 01/18/17 01/18/17 06:59 18:59 Intake Total 1150 Output Total 3 Balance 1147 - Medications Medications: Current Medications Aspirin (Ecotrin) 81 mg PO DAILY [facility] Last Admin: 01/18/17 11:41 Dose: 81 mg Docusate Sodium (Colace) 100 mg PO BID [facility] Last Admin: 01/18/17 17:15 Dose: 100 mg Enoxaparin Sodium (Lovenox) 40 mg SC DAILY [facility] Last Admin: 01/18/17 11:47 Dose: 40 mg Glimepiride (Amaryl) 2 mg PO ACB [facility] Last Admin: 01/18/17 11:41 Dose: Not Given Piperacillin Sod/Tazobactam (Sod 3.375 gm/ Sodium Chloride) 100 mls @ 200 mls/ hr IVPB Q8H [facility] Last Admin: 01/18/17 17:16 Dose: 200 mls/hr Vancomycin/Sodium Chloride (Vancocin) 1 gm in 200 mls @ 133 mls/hr IVPB Q12H [facility] Stop: 01/22/17 13:31 Last Admin: 01/18/17 14:18 Dose: Not Given Insulin Aspart (Novolog) 0 unit SC [facility] PRN Reason: Protocol Last Admin: 01/18/17 16:53 Dose: Not Given Lisinopril (Zestril) 10 mg PO DAILY [facility] Last Admin: 01/18/17 11:41 Dose: 10 mg [facility] Last Admin: 01/18/17 17:28 Dose: 1,000 mg Mupirocin (Bactroban Ointment) 0 gm TOP DAILY [facility] Last Admin: 01/18/17 14:25 Dose: Not Given Pneumococcal Polyvalent Vaccine (Pneumovax 23 Vaccine) 0.5 ml IM .ONCE ONE Stop: 01/19/17 10:01 Rosuvastatin Calcium (Crestor) 5 mg PO [facility] Sennosides (Senokot Tab) 8.6 mg PO DAILY [facility] Last Admin: 01/18/17 11:43 Dose: Not Given - Labs Labs: 01/18/17 07:56 01/18/17 07:56
[2017-01-19] MEDS: Vancomycin 1 gm/NS 200 ml 1 GM/200 ML BAG IVPB SCH (01:36)
[2017-01-19] MEDS: Piperacillin/Tazobact 3.375 GM in Sodium Chloride 100 ML IVPB SCH ×2 (03:00→11:02)
[2017-01-19 07:13] LABS: BASO # 0.1 K/uL (0.0-0.2); EOS # 0.5 K/uL (0.0-0.7); EOS % 7.8 % (0.0-4.0); HEMOGLOBIN 9.4 g/dL (11.0-16.0); LYMPH # 2.7 K/uL (1.0-4.3); LYMPH % 45.9 % (20.0-40.0); MEAN CELL VOLUME 85.2 fL (81.0-99.0); MEAN CORPUSCULAR HEMOGLOBIN 28.4 pg (27.0-31.0); MEAN CORPUSCULAR HGB CONC 33.3 g/dL (33.0-37.0); MEAN PLATELET VOLUME 7.2 fL (7.2-11.7); MONO # 0.5 K/uL (0.0-0.8); MONO % 7.7 % (0.0-10.0); NEUT # 2.2 K/uL (1.8-7.0); NEUT % 37.6 % (50.0-75.0); RBC 3.31 Mil/uL (3.80-5.20); WHITE BLOOD COUNT 5.9 K/uL (4.8-10.8)
[2017-01-19 07:23] LABS: ALBUMIN 3.3 g/dL (3.5-5.0); PROTHROMBIN TIME 11.6 SECONDS (9.7-12.2)
[2017-01-19 07:26] LABS: AST/SGOT 14 U/L (14-36); BLOOD UREA NITROGEN 19 mg/dL (7-17); GFR AFRICAN-AMERICAN > 60; GFR NON-AFRICAN AMERICAN > 60
[2017-01-19 07:27] LABS: ALT/SGPT 17 U/L (9-52); CALCIUM 8.7 mg/dl (8.6-10.4); HDL CHOLESTEROL 32 mg/dL (30-70)
[2017-01-19 07:45] LABS: LDL CHOLESTEROL 102 mg/dL (0-129)
[2017-01-19] MEDS: (Novolog) Insulin Aspart, Recombinant 100 u/ml 10 ml vial SC SCH ×4 (08:00→22:47)
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
[2017-01-19] MEDS ORDERED: Pneumococcal 23-Valent Vaccine IM ONE (10:00)
--- NOTE | 2017-01-19 10:29 | VASCLAB ---
PROCEDURE: Left Lower Extremity Arterial Exam. HISTORY: Left foot wound, assess circulation COMPARISON: None available. TECHNIQUE: Grayscale and duplex Doppler evaluation of the left common femoral, femoral, profunda femoral, popliteal, posterior tibial, anterior tibial and dorsalis pedis arteries was performed. Report prepared by MAHI Castillo FINDINGS: LEFT LOWER EXTREMITY: * Common Femoral Artery: Peak Systolic Velocity - 72: Doppler Waveform: Triphasic.: Plaque description - * Profunda Femoral Artery: Peak Systolic Velocity - 80: Doppler Waveform: Triphasic.: Plaque description - * Femoral Artery o Proximal Segment: Peak Systolic Velocity - 86: Doppler Waveform: Triphasic.: Plaque description - o Middle Segment: Peak Systolic Velocity - 89: Doppler Waveform: Triphasic.: Plaque description - o Distal Segment: Peak Systolic Velocity - 73: Doppler Waveform: Triphasic.: Plaque description - * Popliteal Artery o Proximal Segment: Peak Systolic Velocity - 96: Doppler Waveform: Triphasic.: Plaque description - o Middle Segment: Peak Systolic Velocity - 86: Doppler Waveform: Triphasic.: Plaque description - o Distal Segment: Peak Systolic Velocity - 82: Doppler Waveform: Triphasic.: Plaque description - * Posterior Tibial Artery: Peak Systolic Velocity - 124: Doppler Waveform: Triphasic.: Plaque description - * Anterior Tibial Artery: Peak Systolic Velocity - 134: Doppler Waveform: Triphasic.: Plaque description - * Peroneal Artery: Peak Systolic Velocity - 59: Doppler Waveform: Triphasic.: Plaque description - OTHER FINDINGS: None. IMPRESSION: 1. The major arteries of the left lower extremity appear patent. 2. No evidence of increased velocities or arterial occlusion.
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
[2017-01-19] MEDS: Enoxaparin 40 mg Syringe SC SCH (11:04)
[2017-01-19] MEDS ORDERED: Vancomycin 1 gm/NS 200 ml 1 GM/200 ML BAG IVPB SCH (13:52)
--- NOTE | 2017-01-19 14:06 | CP.PCM.PN ---
Subjective - Date & Time of Evaluation Date of Evaluation: 01/19/17 Time of Evaluation: 11:00 - Subjective Subjective: Medicine Progress Note- Dr Jazmin Mercado's service Patient seen and examined. Patient states that she feels well and denies pain in her left foot or knee. Patient's knee is in a brace and she is unable to bend it at this time. Patient unable to get out of bed without assistance. Per patient she is upset and anxious about surgery for her patellar fracture as she recently had knee surgery and was in rehab. Patient understands that she will have to be on ratchet setter antibiotics for her heel ulcer. Denies fever, chills, nausea, vomiting, diarrhea, chest pain, shortness of breath, and palpitations. Objective - Vital Signs/Intake and Output Vital Signs (last 24 hours): Temp Pulse Resp BP Pulse Ox 98.1 F 71 20 154/83 H 96 01/19/17 07:24 01/19/17 07:24 01/19/17 07:24 01/19/17 07:24 01/19/17 07:24 Intake and Output: 01/19/17 01/19/17 06:59 18:59 Intake Total 500 Balance 500 - Medications Medications: Current Medications Aspirin (Ecotrin) 81 mg PO DAILY [facility] Last Admin: 01/19/17 11:03 Dose: 81 mg Docusate Sodium (Colace) 100 mg PO BID [facility] Last Admin: 01/19/17 11:03 Dose: 100 mg Enoxaparin Sodium (Lovenox) 40 mg SC DAILY [facility] Last Admin: 01/19/17 11:04 Dose: 40 mg Glimepiride (Amaryl) 2 mg PO ACB [facility] Last Admin: 01/19/17 11:03 Dose: 2 mg Piperacillin Sod/Tazobactam (Sod 3.375 gm/ Sodium Chloride) 100 mls @ 200 mls/ hr IVPB Q8H [facility] Last Admin: 01/19/17 11:02 Dose: 200 mls/hr Vancomycin/Sodium Chloride (Vancocin) 1 gm in 200 mls @ 133 mls/hr IVPB QAM [facility] Stop: 01/25/17 10:01 Insulin Aspart (Novolog) 0 unit SC ACHS [facility] PRN Reason: Protocol Last Admin: 01/19/17 11:14 Dose: 2 unit Lisinopril (Zestril) 20 mg PO DAILY [facility] Last Admin: 01/19/17 11:13 Dose: 20 mg Metformin HCl (Glucophage) 1,000 mg PO BIDCC [facility] Last Admin: 01/19/17 11:03 Dose: 1,000 mg Mupirocin (Bactroban Ointment) 0 gm TOP DAILY [facility] Last Admin: 01/19/17 11:07 Dose: 1 applic Rosuvastatin Calcium (Crestor) 5 mg PO HS [facility] Last Admin: 01/18/17 22:37 Dose: 5 mg Sennosides (Senokot Tab) 8.6 mg PO DAILY [facility] Last Admin: 01/19/17 11:03 Dose: 8.6 mg - Labs Labs: 01/19/17 07:05 01/19/17 07:05 PT 11.6 SECONDS (9.7-12.2) 01/19/17 07:05 INR 1.0 01/19/17 07:05 APTT 28 SECONDS (21-34) 01/19/17 07:05 - Constitutional Appears: Non-toxic, No Acute Distress - Head Exam Head Exam: ATRAUMATIC, NORMOCEPHALIC - Eye Exam Eye Exam: EOMI, Normal appearance - ENT Exam ENT Exam: Mucous Membranes Moist - Neck Exam Neck Exam: Normal Inspection - Respiratory Exam Respiratory Exam: Clear to Ausculation Bilateral, NORMAL BREATHING PATTERN. absent: Rhonchi, Wheezes, Respiratory Distress - Cardiovascular Exam Cardiovascular Exam: REGULAR RHYTHM, +S1, +S2. absent: Irregular Rhythm, Murmur - GI/Abdominal Exam GI & Abdominal Exam: Soft, Normal Bowel Sounds. absent: Rigid, Tenderness - Extremities Exam Extremities Exam: absent: Pedal Edema Additional comments: Left knee warm to touch, tenderness Left foot dressing dry and intact - Neurological Exam Neurological Exam: Alert, Awake, CN II-XII Intact, Oriented x3 - Psychiatric Exam Psychiatric exam: Normal Affect, Normal Mood - Skin Skin Exam: Dry, Intact, Normal Color, Warm Assessment and Plan - Assessment and Plan (Free Text) Assessment: Left patellar fracture with swelling - Knee x ray on 01/17 showed displaced comminuted fracture of inferior patella, 3.7 cm superior displacement of proximal fracture; large suprapatellar joint effusion/hematoma. - Ortho, Dr. Ta consulted- help appreciated. Per Dr. Rosario, patient to complete course of antibiotics, and can follow up orthopedic doctor as outpatient. - MRI Left leg- Prominent complete fracture deformity through the lower pole of the bony patella with approximately 2 centimeter superior distraction of the superior patellar fragment - Venous dopplers normal - Physical therapy and assistance OOB Left foot diabetic ulcer - Foot xray done on 01/16 showed lateral 5th metatarsal phalangeal joint soft tissue swelling with no osteomyelitis noted - Podiatry consulted Dr Bejarano- help appreciated. Daily dressing changes. - Local wound care - Wound culture grew gram negative rods- E. coli with sensitivities - ID is consulted, help appreciated - Vanco discontinued. Start Ancef 1gm IV q8h on 01/19, continue Zosyn 3.375gm IV q8h (started on 01/17) - Negative blood cultures x48 hours DM - ISS medium - Accuchecks, sugars well controlled - Metformin 1000mg PO BID and Amaryl 2mg PO ACB - HgA1C 6.5 HLD - TG 86, Cholesterol 152, LDL 102, HDL 32 - Crestor 5 mg po qd HTN - Increase Lisinopril to 20mg PO daily for better bp control - Will continue to monitor vital signs Prophylactic measures - Lovenox 40mg SC daily - Protonix 40mg PO daily - PT/OT eval - SCDs contraindicated due to LE injury Case discussed with attending, Dr. Mercado Orders and management per Dr. Mercado
--- NOTE | 2017-01-19 14:49 | CP.PCM.PN ---
Subjective - Date & Time of Evaluation Date of Evaluation: 01/19/17 Time of Evaluation: 08:40 - Subjective Subjective: clinically same Objective - Vital Signs/Intake and Output Vital Signs (last 24 hours): Temp Pulse Resp BP Pulse Ox 98.1 F 71 20 154/83 H 96 01/19/17 07:24 01/19/17 07:24 01/19/17 07:24 01/19/17 07:24 01/19/17 07:24 Intake and Output: 01/19/17 01/19/17 06:59 18:59 Intake Total 500 Balance 500 - Medications Medications: Current Medications Aspirin (Ecotrin) 81 mg PO DAILY [facility] Last Admin: 01/19/17 11:03 Dose: 81 mg Docusate Sodium (Colace) 100 mg PO BID [facility] Last Admin: 01/19/17 11:03 Dose: 100 mg Enoxaparin Sodium (Lovenox) 40 mg SC DAILY [facility] Last Admin: 01/19/17 11:04 Dose: 40 mg Glimepiride (Amaryl) 2 mg PO ACB [facility] Last Admin: 01/19/17 11:03 Dose: 2 mg Piperacillin Sod/Tazobactam (Sod 3.375 gm/ Sodium Chloride) 100 mls @ 200 mls/ hr IVPB Q8H [facility] Last Admin: 01/19/17 11:02 Dose: 200 mls/hr Cefazolin Sodium/Dextrose (Ancef Iv 1 Gm Duplex) 1 gm in 50 mls @ 100 mls/hr IVPB Q8H [facility] Insulin Aspart (Novolog) 0 unit SC ACHS [facility] PRN Reason: Protocol Last Admin: 01/19/17 11:14 Dose: 2 unit Lisinopril (Zestril) 20 mg PO DAILY [facility] Last Admin: 01/19/17 11:13 Dose: 20 mg Metformin HCl (Glucophage) 1,000 mg PO BIDCC [facility] Last Admin: 01/19/17 11:03 Dose: 1,000 mg Mupirocin (Bactroban Ointment) 0 gm TOP DAILY [facility] Last Admin: 01/19/17 11:07 Dose: 1 applic Pantoprazole Sodium (Protonix Ec Tab) 40 mg PO DAILY [facility] Rosuvastatin Calcium (Crestor) 5 mg PO HS [facility] Last Admin: 01/18/17 22:37 Dose: 5 mg Sennosides (Senokot Tab) 8.6 mg PO DAILY [facility] Last Admin: 01/19/17 11:03 Dose: 8.6 mg - Labs Labs: 01/19/17 07:05 01/19/17 07:05 PT 11.6 SECONDS (9.7-12.2) 01/19/17 07:05 INR 1.0 01/19/17 07:05 APTT 28 SECONDS (21-34) 01/19/17 07:05 - Constitutional Appears: Well - Head Exam Head Exam: ATRAUMATIC, NORMAL INSPECTION, NORMOCEPHALIC - Eye Exam Eye Exam: EOMI, Normal appearance, PERRL Pupil Exam: NORMAL ACCOMODATION, PERRL - ENT Exam ENT Exam: Mucous Membranes Moist, Normal Exam - Neck Exam Neck Exam: Full ROM, Normal Inspection. absent: Lymphadenopathy - Respiratory Exam Respiratory Exam: Decreased Breath Sounds - Cardiovascular Exam Cardiovascular Exam: REGULAR RHYTHM, +S1, +S2 - GI/Abdominal Exam GI & Abdominal Exam: Soft, Diminished Bowel Sounds - Rectal Exam Rectal Exam: Deferred
[2017-01-19] MEDS: ceFAZolin IV 1 gm in Dextrose 1 GM/50 ML BAG IVPB SCH ×2 (15:15→22:28)
--- NOTE | 2017-01-19 18:34 | CP.PCM.PN ---
Subjective - Date & Time of Evaluation Date of Evaluation: 01/19/17 Time of Evaluation: 09:00 - Subjective Subjective: ANTIBIOTICS RENEWED CULTURES NOTED LEFT KNEE SAME CONSIDER ASPIRATION LEFT KNEE CONT WOUND CARE AND IV ANTIBIOTICS Objective - Vital Signs/Intake and Output Vital Signs (last 24 hours): Temp Pulse Resp BP Pulse Ox 98.3 F 71 20 154/83 H 96 01/19/17 15:00 01/19/17 16:28 01/19/17 15:00 01/19/17 16:28 01/19/17 16:28 Intake and Output: 01/19/17 01/19/17 06:59 18:59 Intake Total 500 300 Balance 500 300 - Medications Medications: Current Medications Aspirin (Ecotrin) 81 mg PO DAILY [facility] Last Admin: 01/19/17 11:03 Dose: 81 mg Docusate Sodium (Colace) 100 mg PO BID [facility] Last Admin: 01/19/17 17:24 Dose: 100 mg Enoxaparin Sodium (Lovenox) 40 mg SC DAILY [facility] Last Admin: 01/19/17 11:04 Dose: 40 mg Glimepiride (Amaryl) 2 mg PO ACB [facility] Last Admin: 01/19/17 11:03 Dose: 2 mg Cefazolin Sodium/Dextrose (Ancef Iv 1 Gm Duplex) 1 gm in 50 mls @ 100 mls/hr IVPB Q8H [facility] Last Admin: 01/19/17 15:15 Dose: 100 mls/hr Insulin Aspart (Novolog) 0 unit SC ACHS [facility] PRN Reason: Protocol Last Admin: 01/19/17 17:10 Dose: Not Given Lisinopril (Zestril) 20 mg PO DAILY [facility] Last Admin: 01/19/17 11:13 Dose: 20 mg Metformin HCl (Glucophage) 1,000 mg PO BIDCC [facility] Last Admin: 01/19/17 17:24 Dose: 1,000 mg Mupirocin (Bactroban Ointment) 0 gm TOP DAILY [facility] Last Admin: 01/19/17 11:07 Dose: 1 applic Pantoprazole Sodium (Protonix Ec Tab) 40 mg PO DAILY [facility] Rosuvastatin Calcium (Crestor) 5 mg PO HS [facility] Last Admin: 01/18/17 22:37 Dose: 5 mg Sennosides (Senokot Tab) 8.6 mg PO DAILY [facility] Last Admin: 01/19/17 11:03 Dose: 8.6 mg - Labs Labs: 01/19/17 07:05 01/19/17 07:05 PT 11.6 SECONDS (9.7-12.2) 01/19/17 07:05 INR 1.0 01/19/17 07:05 APTT 28 SECONDS (21-34) 01/19/17 07:05 Assessment and Plan (1) Diabetic foot ulcer Status: Acute (2) Cellulitis of toe of left foot Status: Acute
[2017-01-20] MEDS: ceFAZolin IV 1 gm in Dextrose 1 GM/50 ML BAG IVPB SCH ×2 (06:08→14:27)
[2017-01-20 06:24] LABS: BASO # 0.1 K/uL (0.0-0.2); EOS # 0.5 K/uL (0.0-0.7); EOS % 7.8 % (0.0-4.0); HEMOGLOBIN 9.6 g/dL (11.0-16.0); LYMPH # 3.3 K/uL (1.0-4.3); MEAN CELL VOLUME 85.2 fL (81.0-99.0); MEAN CORPUSCULAR HEMOGLOBIN 29.4 pg (27.0-31.0); MEAN CORPUSCULAR HGB CONC 34.5 g/dL (33.0-37.0); MEAN PLATELET VOLUME 6.9 fL (7.2-11.7); MONO # 0.6 K/uL (0.0-0.8); MONO % 9.1 % (0.0-10.0); NEUT # 2.2 K/uL (1.8-7.0); NEUT % 33.1 % (50.0-75.0); NRBC % 0.1 % (0.0-2.0); RBC 3.26 Mil/uL (3.80-5.20); RED CELL DISTRIBUTION WIDTH 13.9 % (11.5-14.5); WHITE BLOOD COUNT 6.6 K/uL (4.8-10.8)
[2017-01-20 06:39] LABS: ALB/GLOB RATIO 0.9 (1.0-2.1); ALBUMIN 3.3 g/dL (3.5-5.0); ALT/SGPT 18 U/L (9-52); AST/SGOT 20 U/L (14-36); BLOOD UREA NITROGEN 17 mg/dL (7-17); CALCIUM 8.5 mg/dl (8.6-10.4); GFR AFRICAN-AMERICAN > 60; GFR NON-AFRICAN AMERICAN > 60; PROTHROMBIN TIME 11.6 SECONDS (9.7-12.2)
[2017-01-20] MEDS: (Novolog) Insulin Aspart, Recombinant 100 u/ml 10 ml vial SC SCH ×4 (07:32→22:30)
--- NOTE | 2017-01-20 07:49 | CP.PCM.PN ---
Subjective - Date & Time of Evaluation Date of Evaluation: 01/20/17 Time of Evaluation: 07:45 - Subjective Subjective: Patient in better spirits today. Tolerated PT well yesterday, no increased pain in knee today. Objective - Vital Signs/Intake and Output Vital Signs (last 24 hours): Temp Pulse Resp BP Pulse Ox 98 F 71 20 143/76 97 01/20/17 07:20 01/20/17 07:20 01/20/17 07:20 01/20/17 07:20 01/20/17 07:20 Intake and Output: 01/20/17 01/20/17 06:59 18:59 Intake Total 600 Output Total 300 Balance 300 - Medications Medications: Current Medications Aspirin (Ecotrin) 81 mg PO DAILY [facility] Last Admin: 01/19/17 11:03 Dose: 81 mg Docusate Sodium (Colace) 100 mg PO BID [facility] Last Admin: 01/19/17 17:24 Dose: 100 mg Enoxaparin Sodium (Lovenox) 40 mg SC DAILY [facility] Last Admin: 01/19/17 11:04 Dose: 40 mg Glimepiride (Amaryl) 2 mg PO ACB [facility] Last Admin: 01/20/17 07:32 Dose: Not Given Cefazolin Sodium/Dextrose (Ancef Iv 1 Gm Duplex) 1 gm in 50 mls @ 100 mls/hr IVPB Q8H [facility] Last Admin: 01/20/17 06:08 Dose: 100 mls/hr Insulin Aspart (Novolog) 0 unit SC ACHS [facility] PRN Reason: Protocol Last Admin: 01/20/17 07:32 Dose: Not Given Lisinopril (Zestril) 20 mg PO DAILY [facility] Last Admin: 01/19/17 11:13 Dose: 20 mg Metformin HCl (Glucophage) 1,000 mg PO BIDCC [facility] Last Admin: 01/20/17 07:32 Dose: Not Given Mupirocin (Bactroban Ointment) 0 gm TOP DAILY [facility] Last Admin: 01/19/17 11:07 Dose: 1 applic Pantoprazole Sodium (Protonix Ec Tab) 40 mg PO DAILY [facility] Rosuvastatin Calcium (Crestor) 5 mg PO HS [facility] Last Admin: 01/19/17 21:41 Dose: 5 mg Sennosides (Senokot Tab) 8.6 mg PO DAILY [facility] Last Admin: 01/19/17 11:03 Dose: 8.6 mg - Labs Labs: 01/20/17 06:16 01/20/17 06:16 PT 11.6 SECONDS (9.7-12.2) 01/20/17 06:16 INR 1.0 01/20/17 06:16 APTT 29 SECONDS (21-34) 01/20/17 06:16 - Extremities Exam Additional comments: Left knee: brace intact, no increased swelling to knee. Continued ecchymosis, no erythema. +ROM ankle/toes, sensation itnact, +DP pulse calves soft NT neg homans Assessment and Plan (1) Rupture of left patellar tendon Assessment & Plan: rerupture due to patient fall Patient to complete course of antibiotics, and can follw up orthopedic doctor as outpatient. Per Dr. Rosario, would recommend following up with Dr. Shaver ideally as he did the initial sugery, or in office of Dr. Rosario, or she can call pMD for ortho referral in network, [facility] in [place], Dr. David Garcia recommends Dr. Colmenares, once infection improves WBAT in Brace at all times per Dr. Rosario VTE proph Status: Acute
[2017-01-20] MEDS: Pantoprazole 40 mg EC Tab PO SCH (09:14)
[2017-01-20] MEDS: Enoxaparin 40 mg Syringe SC SCH (09:18)
--- NOTE | 2017-01-20 09:34 | CP.PCM.PN ---
Subjective - Date & Time of Evaluation Date of Evaluation: 01/20/17 Time of Evaluation: 08:20 - Subjective Subjective: clinically same Objective - Vital Signs/Intake and Output Vital Signs (last 24 hours): Temp Pulse Resp BP Pulse Ox 98 F 71 20 143/76 97 01/20/17 07:20 01/20/17 07:20 01/20/17 07:20 01/20/17 07:20 01/20/17 07:20 Intake and Output: 01/20/17 01/20/17 06:59 18:59 Intake Total 600 Output Total 300 Balance 300 - Medications Medications: Current Medications Acetaminophen (Tylenol 325mg Tab) 650 mg PO Q6 PRN PRN Reason: Pain, severe (8-10) Last Admin: 01/20/17 09:17 Dose: 650 mg Aspirin (Ecotrin) 81 mg PO DAILY [facility] Last Admin: 01/20/17 09:14 Dose: 81 mg Docusate Sodium (Colace) 100 mg PO BID [facility] Last Admin: 01/20/17 09:14 Dose: 100 mg Enoxaparin Sodium (Lovenox) 40 mg SC DAILY [facility] Last Admin: 01/20/17 09:18 Dose: 40 mg Glimepiride (Amaryl) 2 mg PO ACB [facility] Last Admin: 01/20/17 07:32 Dose: Not Given Cefazolin Sodium/Dextrose (Ancef Iv 1 Gm Duplex) 1 gm in 50 mls @ 100 mls/hr IVPB Q8H [facility] Last Admin: 01/20/17 06:08 Dose: 100 mls/hr Insulin Aspart (Novolog) 0 unit SC ACHS [facility] PRN Reason: Protocol Last Admin: 01/20/17 07:32 Dose: Not Given Lisinopril (Zestril) 20 mg PO DAILY [facility] Last Admin: 01/20/17 09:14 Dose: 20 mg Metformin HCl (Glucophage) 1,000 mg PO BIDCC [facility] Last Admin: 01/20/17 07:32 Dose: Not Given Mupirocin (Bactroban Ointment) 0 gm TOP DAILY [facility] Last Admin: 01/20/17 09:14 Dose: 1 applic Pantoprazole Sodium (Protonix Ec Tab) 40 mg PO DAILY [facility] Last Admin: 01/20/17 09:14 Dose: 40 mg Rosuvastatin Calcium (Crestor) 5 mg PO HS [facility] Last Admin: 01/19/17 21:41 Dose: 5 mg Sennosides (Senokot Tab) 8.6 mg PO DAILY [facility] Last Admin: 01/20/17 09:14 Dose: 8.6 mg - Labs Labs: 01/20/17 06:16 01/20/17 06:16 PT 11.6 SECONDS (9.7-12.2) 01/20/17 06:16 INR 1.0 01/20/17 06:16 APTT 29 SECONDS (21-34) 01/20/17 06:16 - Constitutional Appears: Well - Head Exam Head Exam: ATRAUMATIC, NORMAL INSPECTION, NORMOCEPHALIC - Eye Exam Eye Exam: EOMI, Normal appearance, PERRL Pupil Exam: NORMAL ACCOMODATION, PERRL - ENT Exam ENT Exam: Mucous Membranes Moist, Normal Exam - Neck Exam Neck Exam: Full ROM, Normal Inspection. absent: Lymphadenopathy - Respiratory Exam Respiratory Exam: Decreased Breath Sounds - Cardiovascular Exam Cardiovascular Exam: REGULAR RHYTHM, +S1, +S2 - GI/Abdominal Exam GI & Abdominal Exam: Soft, Diminished Bowel Sounds - Rectal Exam Rectal Exam: Deferred
[2017-01-20] MEDS ORDERED: Vancomycin 1 gm/NS 200 ml 1 GM/200 ML BAG IVPB SCH (10:00)
--- NOTE | 2017-01-20 14:13 | CP.PCM.PN ---
Subjective - Date & Time of Evaluation Date of Evaluation: 01/20/17 Time of Evaluation: 14:08 - Subjective Subjective: PGY [address] Mercado Pt is seen and examined at bedside. No acute events overnight. Patient does not c/o chest pain, sob, abd pain, b/l LE pain. Patient is toelrating diet and having regular BMs. 12 point ROS are negative except for the above mentioned. Objective - Vital Signs/Intake and Output Vital Signs (last 24 hours): Temp Pulse Resp BP Pulse Ox 98 F 71 20 143/76 97 01/20/17 07:20 01/20/17 07:20 01/20/17 07:20 01/20/17 07:20 01/20/17 07:20 Intake and Output: 01/20/17 01/20/17 06:59 18:59 Intake Total 600 Output Total 300 Balance 300 - Medications Medications: Current Medications Acetaminophen (Tylenol 325mg Tab) 650 mg PO Q6 PRN PRN Reason: Pain, severe (8-10) Last Admin: 01/20/17 09:17 Dose: 650 mg Aspirin (Ecotrin) 81 mg PO DAILY [facility] Last Admin: 01/20/17 09:14 Dose: 81 mg Docusate Sodium (Colace) 100 mg PO BID [facility] Last Admin: 01/20/17 09:14 Dose: 100 mg Enoxaparin Sodium (Lovenox) 40 mg SC DAILY [facility] Last Admin: 01/20/17 09:18 Dose: 40 mg Glimepiride (Amaryl) 2 mg PO ACB [facility] Last Admin: 01/20/17 07:32 Dose: Not Given Cefazolin Sodium/Dextrose (Ancef Iv 1 Gm Duplex) 1 gm in 50 mls @ 100 mls/hr IVPB Q8H [facility] Last Admin: 01/20/17 06:08 Dose: 100 mls/hr Insulin Aspart (Novolog) 0 unit SC ACHS [facility] PRN Reason: Protocol Last Admin: 01/20/17 12:02 Dose: 2 unit Lisinopril (Zestril) 20 mg PO DAILY [facility] Last Admin: 01/20/17 09:14 Dose: 20 mg Metformin HCl (Glucophage) 1,000 mg PO BIDCC [facility] Last Admin: 01/20/17 07:32 Dose: Not Given Mupirocin (Bactroban Ointment) 0 gm TOP DAILY [facility] Last Admin: 01/20/17 09:14 Dose: 1 applic Pantoprazole Sodium (Protonix Ec Tab) 40 mg PO DAILY [facility] Last Admin: 01/20/17 09:14 Dose: 40 mg Rosuvastatin Calcium (Crestor) 5 mg PO HS [facility] Last Admin: 01/19/17 21:41 Dose: 5 mg Sennosides (Senokot Tab) 8.6 mg PO DAILY [facility] Last Admin: 01/20/17 09:14 Dose: 8.6 mg - Labs Labs: 01/20/17 06:16 01/20/17 06:16 PT 11.6 SECONDS (9.7-12.2) 01/20/17 06:16 INR 1.0 01/20/17 06:16 APTT 29 SECONDS (21-34) 01/20/17 06:16 - Constitutional Appears: Non-toxic, No Acute Distress - Head Exam Head Exam: ATRAUMATIC - Eye Exam Eye Exam: EOMI - ENT Exam ENT Exam: Mucous Membranes Moist - Respiratory Exam Respiratory Exam: Clear to Ausculation Bilateral, NORMAL BREATHING PATTERN. absent: Rales, Rhonchi, Wheezes - Cardiovascular Exam Cardiovascular Exam: REGULAR RHYTHM, +S1, +S2 - GI/Abdominal Exam GI & Abdominal Exam: Soft, Normal Bowel Sounds. absent: Firm, Guarding, Rigid, Tenderness, Organomegaly - Extremities Exam Extremities Exam: absent: Pedal Edema, Tenderness - Neurological Exam Neurological Exam: Alert, Awake, Oriented x3 - Psychiatric Exam Psychiatric exam: Normal Affect, Normal Mood - Skin Skin Exam: Dry, Intact, Normal Color, Warm Assessment and Plan - Assessment and Plan (Free Text) Assessment: Left patellar fracture with swelling - Knee x ray on 01/17 showed displaced comminuted fracture of inferior patella, 3.7 cm superior displacement of proximal fracture; large suprapatellar joint effusion/hematoma. - Ortho, Dr. Ta consulted- help appreciated. Per Dr. Rosario, patient to complete course of antibiotics, and can follow up orthopedic doctor as outpatient. - MRI Left leg- Prominent complete fracture deformity through the lower pole of the bony patella with approximately 2 centimeter superior distraction of the superior patellar fragment - Venous dopplers normal - Physical therapy and assistance OOB Left foot diabetic ulcer - Foot xray done on 01/16 showed lateral 5th metatarsal phalangeal joint soft tissue swelling with no osteomyelitis noted - Podiatry consulted Dr Bejarano- help appreciated. Daily dressing changes. - Local wound care - Wound culture grew gram negative rods- E. coli with sensitivities - ID is consulted, help appreciated - Vanco discontinued. Start Ancef 1gm IV q8h on 01/19, continue - Negative blood cultures x48 hours DM - ISS medium - Accuchecks, sugars well controlled - Metformin 1000mg PO BID and Amaryl 2mg PO ACB - HgA1C 6.5 HLD - TG 86, Cholesterol 152, LDL 102, HDL 32 - Crestor 5 mg po qd HTN - Increase Lisinopril to 20mg PO daily for better bp control - Will continue to monitor vital signs Prophylactic measures - Lovenox 40mg SC daily - Protonix 40mg PO daily - PT/OT eval - SCDs contraindicated due to LE injury Dispo: Consulted case management today for placement into [facility] for half-way IV antibiotics. Case discussed with attending, Dr. Mercado Orders and management per Dr. Mercado
--- NOTE | 2017-01-20 15:12 | CP.PCM.PN ---
Subjective - Date & Time of Evaluation Date of Evaluation: 01/20/17 Time of Evaluation: 07:00 - Subjective Subjective: DISCUSSED ON ROUNDS IMPROVING FOR POSSIBLE D/C ON IV RX Objective - Vital Signs/Intake and Output Vital Signs (last 24 hours): Temp Pulse Resp BP Pulse Ox 98 F 71 20 143/76 97 01/20/17 07:20 01/20/17 07:20 01/20/17 07:20 01/20/17 07:20 01/20/17 07:20 Intake and Output: 01/20/17 01/20/17 06:59 18:59 Intake Total 600 Output Total 300 Balance 300 - Medications Medications: Current Medications Acetaminophen (Tylenol 325mg Tab) 650 mg PO Q6 PRN PRN Reason: Pain, severe (8-10) Last Admin: 01/20/17 09:17 Dose: 650 mg Aspirin (Ecotrin) 81 mg PO DAILY [facility] Last Admin: 01/20/17 09:14 Dose: 81 mg Docusate Sodium (Colace) 100 mg PO BID [facility] Last Admin: 01/20/17 09:14 Dose: 100 mg Enoxaparin Sodium (Lovenox) 40 mg SC DAILY [facility] Last Admin: 01/20/17 09:18 Dose: 40 mg Glimepiride (Amaryl) 2 mg PO ACB [facility] Last Admin: 01/20/17 07:32 Dose: Not Given Cefazolin Sodium/Dextrose (Ancef Iv 1 Gm Duplex) 1 gm in 50 mls @ 100 mls/hr IVPB Q8H [facility] Last Admin: 01/20/17 14:27 Dose: 100 mls/hr Insulin Aspart (Novolog) 0 unit SC ACHS [facility] PRN Reason: Protocol Last Admin: 01/20/17 12:02 Dose: 2 unit Lisinopril (Zestril) 20 mg PO DAILY [facility] Last Admin: 01/20/17 09:14 Dose: 20 mg Metformin HCl (Glucophage) 1,000 mg PO BIDCC [facility] Last Admin: 01/20/17 07:32 Dose: Not Given Mupirocin (Bactroban Ointment) 0 gm TOP DAILY [facility] Last Admin: 01/20/17 09:14 Dose: 1 applic Pantoprazole Sodium (Protonix Ec Tab) 40 mg PO DAILY [facility] Last Admin: 01/20/17 09:14 Dose: 40 mg Rosuvastatin Calcium (Crestor) [address] [facility] Last Admin: 01/19/17 21:41 Dose: 5 mg Sennosides (Senokot Tab) 8.6 mg PO DAILY [facility] Last Admin: 01/20/17 09:14 Dose: 8.6 mg - Labs Labs: 01/20/17 06:16 01/20/17 06:16 PT 11.6 SECONDS (9.7-12.2) 01/20/17 06:16 INR 1.0 01/20/17 06:16 APTT 29 SECONDS (21-34) 01/20/17 06:16 Assessment and Plan (1) Diabetic foot ulcer Status: Acute (2) Cellulitis of toe of left foot Status: Acute
--- NOTE | 2017-01-20 16:38 | CP.PCM.PN ---
Subjective - Date & Time of Evaluation Date of Evaluation: 01/20/17 Time of Evaluation: 16:35 - Subjective Subjective: 61 y/o female seen at bedside for left foot wound. Patient appears in NAD and AAOx3 with dressing intact and patellar brace intact to left leg. Patient denies any pain in her foot. She denies any acute events overnight. Patient denies any pedal complaints at this time. She denies n/.f/c/d/v/sob Objective - Vital Signs/Intake and Output Vital Signs (last 24 hours): Temp Pulse Resp BP Pulse Ox 98 F 77 20 143/76 98 01/20/17 07:20 01/20/17 16:10 01/20/17 07:20 01/20/17 07:20 01/20/17 16:10 Intake and Output: 01/20/17 01/20/17 06:59 18:59 Intake Total 600 400 Output Total 300 Balance 300 400 - Medications Medications: Current Medications Acetaminophen (Tylenol 325mg Tab) 650 mg PO Q6 PRN PRN Reason: Pain, severe (8-10) Last Admin: 01/20/17 09:17 Dose: 650 mg Aspirin (Ecotrin) 81 mg PO DAILY [facility] Last Admin: 01/20/17 09:14 Dose: 81 mg Docusate Sodium (Colace) 100 mg PO BID [facility] Last Admin: 01/20/17 09:14 Dose: 100 mg Enoxaparin Sodium (Lovenox) 40 mg SC DAILY [facility] Last Admin: 01/20/17 09:18 Dose: 40 mg Glimepiride (Amaryl) 2 mg PO ACB [facility] Last Admin: 01/20/17 07:32 Dose: Not Given Piperacillin Sod/Tazobactam (Sod 3.375 gm/ Sodium Chloride) 100 mls @ 200 mls/ hr IVPB Q8H [facility] Insulin Aspart (Novolog) 0 unit SC ACHS [facility] PRN Reason: Protocol Last Admin: 01/20/17 12:02 Dose: 2 unit Lisinopril (Zestril) 20 mg PO DAILY [facility] Last Admin: 01/20/17 09:14 Dose: 20 mg Metformin HCl (Glucophage) 1,000 mg PO BIDCC [facility] Last Admin: 01/20/17 07:32 Dose: Not Given Mupirocin (Bactroban Ointment) 0 gm TOP DAILY [facility] Last Admin: 01/20/17 09:14 Dose: 1 applic Pantoprazole Sodium (Protonix Ec Tab) 40 mg PO DAILY [facility] Last Admin: 01/20/17 09:14 Dose: 40 mg Rosuvastatin Calcium (Crestor) 5 mg PO HS [facility] Last Admin: 01/19/17 21:41 Dose: 5 mg Sennosides (Senokot Tab) 8.6 mg PO DAILY [facility] Last Admin: 01/20/17 09:14 Dose: 8.6 mg - Labs Labs: 01/20/17 06:16 01/20/17 06:16 PT 11.6 SECONDS (9.7-12.2) 01/20/17 06:16 INR 1.0 01/20/17 06:16 APTT 29 SECONDS (21-34) 01/20/17 06:16 - Constitutional Appears: Well, Non-toxic, No Acute Distress - Extremities Exam Additional comments: Vasc: lightly palpable DP pulse, nonpalpable PT pulse, TG wnl, CFT < 3 sec to all digits neuro; grossly diminished derm: no edema, localized erythema to dorsolateral left foot, open lesion measuring 3cm x 2cm x 0.1cm with granular base, hyperkeratotic border, no drainage, mild malodor, no purulence, no undermining, no probe to bone ortho: no pain on palpation to dorsal wound of left foot - Neurological Exam Neurological Exam: Alert, Awake, Oriented x3 - Psychiatric Exam Psychiatric exam: Normal Affect, Normal Mood Assessment and Plan - Assessment and Plan (Free Text) Assessment: 61 y/o female seen at bedside regarding left foot burn secondary to diabetic neuropathy Plan: patient evaluated and chart reviewed discussed in detail with attending Dr. Bejarano labs and vitals reviewed; WBC 6.6, afebrile santyl, DSD applied to left foot wound cx: e.coli continue IV abx as per Dr. Kennedy, ID podiatry will continue to follow while patient remains in house
[2017-01-20] MEDS: Piperacillin/Tazobact 3.375 GM in Sodium Chloride 100 ML IVPB SCH (18:50)
[2017-01-21] MEDS: Piperacillin/Tazobact 3.375 GM in Sodium Chloride 100 ML IVPB SCH ×3 (01:39→18:12)
[2017-01-21 06:39] LABS: ALBUMIN 3.4 g/dL (3.5-5.0); BASO # 0.1 K/uL (0.0-0.2); EOS # 0.4 K/uL (0.0-0.7); EOS % 7.5 % (0.0-4.0); HEMOGLOBIN 10.4 g/dL (11.0-16.0); LYMPH # 2.5 K/uL (1.0-4.3); LYMPH % 41.3 % (20.0-40.0); MEAN CORPUSCULAR HEMOGLOBIN 28.4 pg (27.0-31.0); MEAN CORPUSCULAR HGB CONC 33.4 g/dL (33.0-37.0); MONO # 0.4 K/uL (0.0-0.8); MONO % 6.9 % (0.0-10.0); NEUT # 2.6 K/uL (1.8-7.0); NEUT % 43.3 % (50.0-75.0); NRBC % 0.1 % (0.0-2.0); RBC 3.65 Mil/uL (3.80-5.20); RED CELL DISTRIBUTION WIDTH 14.3 % (11.5-14.5)
[2017-01-21 06:42] LABS: AST/SGOT 17 U/L (14-36); BLOOD UREA NITROGEN 13 mg/dL (7-17); GFR AFRICAN-AMERICAN > 60; GFR NON-AFRICAN AMERICAN > 60
[2017-01-21 06:43] LABS: ALT/SGPT 17 U/L (9-52); CALCIUM 8.7 mg/dl (8.6-10.4)
[2017-01-21 06:50] LABS: INR 1.1
[2017-01-21] MEDS: (Novolog) Insulin Aspart, Recombinant 100 u/ml 10 ml vial SC SCH ×4 (07:56→22:25)
[2017-01-21] MEDS: Pantoprazole 40 mg EC Tab PO SCH (11:24)
[2017-01-21] MEDS: Enoxaparin 40 mg Syringe SC SCH (11:24)
--- NOTE | 2017-01-21 13:11 | CP.PCM.PN ---
Subjective - Date & Time of Evaluation Date of Evaluation: 01/21/17 Time of Evaluation: 12:00 - Subjective Subjective: 61 y/o female seen at bedside for wound of left foot. Patient appears in NAD and AAOx3 with dressing intact to left foot and patellar brace intact to left leg. Patient denies any pain or discomfort in the foot at this time. She denies any acute events overnight. Patient denies any pedal complaints at this time. She denies n/.f/c/d/v/sob Objective - Vital Signs/Intake and Output Vital Signs (last 24 hours): Temp Pulse Resp BP Pulse Ox 97.7 F 82 20 146/79 96 01/21/17 08:00 01/21/17 08:00 01/21/17 08:00 01/21/17 08:00 01/21/17 08:00 Intake and Output: 01/21/17 01/21/17 06:59 18:59 Intake Total 740 Balance 740 - Medications Medications: Current Medications Acetaminophen (Tylenol 325mg Tab) 650 mg PO Q6 PRN PRN Reason: Pain, severe (8-10) Last Admin: 01/20/17 09:17 Dose: 650 mg Aspirin (Ecotrin) 81 mg PO DAILY [facility] Last Admin: 01/21/17 11:24 Dose: 81 mg Docusate Sodium (Colace) 100 mg PO BID [facility] Last Admin: 01/21/17 11:24 Dose: 100 mg Enoxaparin Sodium (Lovenox) 40 mg SC DAILY [facility] Last Admin: 01/21/17 11:24 Dose: 40 mg Glimepiride (Amaryl) 2 mg PO ACB [facility] Last Admin: 01/21/17 11:32 Dose: 2 mg Piperacillin Sod/Tazobactam (Sod 3.375 gm/ Sodium Chloride) 100 mls @ 200 mls/ hr IVPB Q8H [facility] Last Admin: 01/21/17 11:28 Dose: 200 mls/hr Insulin Aspart (Novolog) 0 unit SC ACHS [facility] PRN Reason: Protocol Last Admin: 01/21/17 11:32 Dose: 2 unit Lisinopril (Zestril) 20 mg PO DAILY [facility] Last Admin: 01/21/17 11:24 Dose: 20 mg [facility] Last Admin: 01/21/17 07:56 Dose: Not Given Mupirocin (Bactroban Ointment) 0 gm TOP DAILY [facility] Last Admin: 01/21/17 11:25 Dose: 1 applic Pantoprazole Sodium (Protonix Ec Tab) 40 mg PO DAILY [facility] Last Admin: 01/21/17 11:24 Dose: 40 mg Rosuvastatin Calcium (Crestor) 5 mg PO HS [facility] Last Admin: 01/20/17 22:47 Dose: 5 mg Sennosides (Senokot Tab) 8.6 mg PO DAILY [facility] Last Admin: 01/21/17 11:24 Dose: 8.6 mg - Labs Labs: 01/21/17 06:22 01/21/17 06:22 PT 12.0 SECONDS (9.7-12.2) 01/21/17 06:22 INR 1.1 01/21/17 06:22 APTT 29 SECONDS (21-34) 01/21/17 06:22 - Constitutional Appears: Non-toxic, No Acute Distress - Extremities Exam Extremities Exam: absent: Calf Tenderness Additional comments: Vasc: lightly palpable DP pulse, nonpalpable PT pulse, TG wnl, CFT < 3 sec to all digits neuro; grossly diminished derm: no edema, localized erythema to dorsolateral left foot, open lesion measuring 3cm x 2cm x 0.1cm with granular base, hyperkeratotic border, no drainage, mild malodor, no purulence, no undermining, no probe to bone ortho: no pain on palpation to dorsal wound of left foot - Neurological Exam Neurological Exam: Alert, Awake, Oriented x3 - Psychiatric Exam Psychiatric exam: Normal Affect, Normal Mood Assessment and Plan - Assessment and Plan (Free Text) Assessment: 61 y/o female seen at bedside regarding left foot burn 2/2 diabetic neuropathy Plan: Pt S&E at bedside Plan discussed in detail with attending Dr. Bejarano Chart, labs and vitals reviewed: afebrile, WBC 6.0 santyl, DSD applied to left foot wound cx: e.coli continue IV abx as per Dr. Knenedy, ID Stable per podiatry podiatry will continue to follow while patient remains in house
--- NOTE | 2017-01-21 14:31 | CP.PCM.PN ---
Subjective - Date & Time of Evaluation Date of Evaluation: 01/21/17 Time of Evaluation: 08:00 - Subjective Subjective: clinically same Objective - Vital Signs/Intake and Output Vital Signs (last 24 hours): Temp Pulse Resp BP Pulse Ox 97.7 F 82 20 146/79 96 01/21/17 08:00 01/21/17 08:00 01/21/17 08:00 01/21/17 08:00 01/21/17 08:00 Intake and Output: 01/21/17 01/21/17 06:59 18:59 Intake Total 740 Balance 740 - Medications Medications: Current Medications Acetaminophen (Tylenol 325mg Tab) 650 mg PO Q6 PRN PRN Reason: Pain, severe (8-10) Last Admin: 01/20/17 09:17 Dose: 650 mg Aspirin (Ecotrin) 81 mg PO DAILY [facility] Last Admin: 01/21/17 11:24 Dose: 81 mg Docusate Sodium (Colace) 100 mg PO BID [facility] Last Admin: 01/21/17 11:24 Dose: 100 mg Enoxaparin Sodium (Lovenox) 40 mg SC DAILY [facility] Last Admin: 01/21/17 11:24 Dose: 40 mg Glimepiride (Amaryl) 2 mg PO ACB [facility] Last Admin: 01/21/17 11:32 Dose: 2 mg Piperacillin Sod/Tazobactam (Sod 3.375 gm/ Sodium Chloride) 100 mls @ 200 mls/ hr IVPB Q8H [facility] Last Admin: 01/21/17 11:28 Dose: 200 mls/hr Insulin Aspart (Novolog) 0 unit SC ACHS [facility] PRN Reason: Protocol Last Admin: 01/21/17 11:32 Dose: 2 unit Lisinopril (Zestril) 20 mg PO DAILY [facility] Last Admin: 01/21/17 11:24 Dose: 20 mg Metformin HCl (Glucophage) 1,000 mg PO BIDCC [facility] Last Admin: 01/21/17 07:56 Dose: Not Given Mupirocin (Bactroban Ointment) 0 gm TOP DAILY [facility] Last Admin: 01/21/17 11:25 Dose: 1 applic Pantoprazole Sodium (Protonix Ec Tab) 40 mg PO DAILY [facility] Last Admin: 01/21/17 11:24 Dose: 40 mg Rosuvastatin Calcium (Crestor) 5 mg PO HS [facility] Last Admin: 01/20/17 22:47 Dose: 5 mg Sennosides (Senokot Tab) 8.6 mg PO DAILY [facility] Last Admin: 01/21/17 11:24 Dose: 8.6 mg - Labs Labs: 01/21/17 06:22 01/21/17 06:22 PT 12.0 SECONDS (9.7-12.2) 01/21/17 06:22 INR 1.1 01/21/17 06:22 APTT 29 SECONDS (21-34) 01/21/17 06:22
[2017-01-22] MEDS: Piperacillin/Tazobact 3.375 GM in Sodium Chloride 100 ML IVPB SCH ×3 (01:44→17:41)
[2017-01-22] MEDS: (Novolog) Insulin Aspart, Recombinant 100 u/ml 10 ml vial SC SCH ×4 (07:30→21:38)
[2017-01-22] MEDS: Pantoprazole 40 mg EC Tab PO SCH (09:05)
[2017-01-22] MEDS: Enoxaparin 40 mg Syringe SC SCH (09:12)
--- NOTE | 2017-01-22 12:59 | CP.PCM.PN ---
Subjective - Date & Time of Evaluation Date of Evaluation: 01/22/17 Time of Evaluation: 12:00 - Subjective Subjective: 61 y/o female seen at bedside for wound of left foot. Patient appears in NAD and AAOx3 with dressing intact to left foot and patellar brace intact to left leg. Patient denies any pain or discomfort in the foot at this time. She denies any acute events overnight. Patient denies any pedal complaints at this time. She denies n/.f/c/d/v/sob, however does complain of some lightheadedness earlier this morning. Objective - Vital Signs/Intake and Output Vital Signs (last 24 hours): Temp Pulse Resp BP Pulse Ox 98.4 F 89 20 122/71 97 01/22/17 08:55 01/22/17 08:55 01/22/17 08:55 01/22/17 08:55 01/22/17 08:55 Intake and Output: 01/22/17 01/22/17 06:59 18:59 Intake Total 450 Balance 450 - Medications Medications: Current Medications Acetaminophen (Tylenol 325mg Tab) 650 mg PO Q6 PRN PRN Reason: Pain, severe (8-10) Last Admin: 01/22/17 09:05 Dose: 650 mg Aspirin (Ecotrin) 81 mg PO DAILY [facility] Last Admin: 01/22/17 09:05 Dose: 81 mg Docusate Sodium (Colace) 100 mg PO BID [facility] Last Admin: 01/22/17 09:05 Dose: 100 mg Enoxaparin Sodium (Lovenox) 40 mg SC DAILY [facility] Last Admin: 01/22/17 09:12 Dose: 40 mg Glimepiride (Amaryl) 2 mg PO ACB [facility] Last Admin: 01/22/17 07:30 Dose: 2 mg Piperacillin Sod/Tazobactam (Sod 3.375 gm/ Sodium Chloride) 100 mls @ 200 mls/ hr IVPB Q8H [facility] Last Admin: 01/22/17 10:00 Dose: 200 mls/hr Insulin Aspart (Novolog) 0 unit SC ACHS [facility] PRN Reason: Protocol Last Admin: 01/22/17 12:41 Dose: 2 unit Lisinopril (Zestril) 20 mg PO DAILY [facility] Last Admin: 01/22/17 09:05 Dose: 20 mg Metformin HCl (Glucophage) 1,000 mg PO BIDCC [facility] Last Admin: 01/22/17 08:00 Dose: Not Given Mupirocin (Bactroban Ointment) 0 gm TOP DAILY [facility] Last Admin: 01/22/17 09:04 Dose: 1 applic Pantoprazole Sodium (Protonix Ec Tab) 40 mg PO DAILY [facility] Last Admin: 01/22/17 09:05 Dose: 40 mg Rosuvastatin Calcium (Crestor) 5 mg PO HS [facility] Last Admin: 01/21/17 21:04 Dose: 5 mg Sennosides (Senokot Tab) 8.6 mg PO DAILY [facility] Last Admin: 01/22/17 09:05 Dose: 8.6 mg - Labs Labs: 01/21/17 06:22 01/21/17 06:22 PT 12.0 SECONDS (9.7-12.2) 01/21/17 06:22 INR 1.1 01/21/17 06:22 APTT 29 SECONDS (21-34) 01/21/17 06:22 - Constitutional Appears: Non-toxic, No Acute Distress - Extremities Exam Additional comments: Vasc: lightly palpable DP pulse, nonpalpable PT pulse, TG wnl, CFT < 3 sec to all digits neuro; grossly diminished derm: no edema, localized erythema to dorsolateral left foot, open lesion measuring 3cm x 2cm x 0.1cm with granular base, no drainage, no malodor, no purulence, no undermining, no probe to bone ortho: no pain on palpation to dorsal wound of left foot - Neurological Exam Neurological Exam: Alert, Awake, Oriented x3 - Psychiatric Exam Psychiatric exam: Normal Affect, Normal Mood Assessment and Plan - Assessment and Plan (Free Text) Assessment: 61 y/o female seen at bedside regarding left foot burn 2/2 diabetic neuropathy Plan: Pt S&E at bedside Plan discussed in detail with attending Dr. Bejarano Chart, labs and vitals reviewed: afebrile, WBC 6.0 santyl, bactroban DSD applied to left foot wound cx: e.coli continue IV abx as per Dr. Kennedy, ID Stable per podiatry podiatry will continue to follow while patient remains in house
--- NOTE | 2017-01-22 15:23 | CP.PCM.PN ---
Subjective - Date & Time of Evaluation Date of Evaluation: 01/22/17 Time of Evaluation: 09:00 - Subjective Subjective: 61 y/o female seen at bedside for wound of left foot. Patient appears in NAD and AAOx3 with dressing intact to left foot and patellar brace intact to left leg. Patient denies any pain or discomfort in the foot at this time. MRI left knee noted await ortho eval consider arthrocentesis cont IV antibiotics and wound care Objective - Vital Signs/Intake and Output Vital Signs (last 24 hours): Temp Pulse Resp BP Pulse Ox 98.4 F 89 20 122/71 97 01/22/17 08:55 01/22/17 08:55 01/22/17 08:55 01/22/17 08:55 01/22/17 08:55 Intake and Output: 01/22/17 01/22/17 06:59 18:59 Intake Total 450 Balance 450 - Medications Medications: Current Medications Acetaminophen (Tylenol 325mg Tab) 650 mg PO Q6 PRN PRN Reason: Pain, severe (8-10) Last Admin: 01/22/17 09:05 Dose: 650 mg Aspirin (Ecotrin) 81 mg PO DAILY [facility] Last Admin: 01/22/17 09:05 Dose: 81 mg Docusate Sodium (Colace) 100 mg PO BID [facility] Last Admin: 01/22/17 09:05 Dose: 100 mg Enoxaparin Sodium (Lovenox) 40 mg SC DAILY [facility] Last Admin: 01/22/17 09:12 Dose: 40 mg Glimepiride (Amaryl) 2 mg PO ACB [facility] Last Admin: 01/22/17 07:30 Dose: 2 mg Piperacillin Sod/Tazobactam (Sod 3.375 gm/ Sodium Chloride) 100 mls @ 200 mls/ hr IVPB Q8H [facility] Last Admin: 01/22/17 10:00 Dose: 200 mls/hr Insulin Aspart (Novolog) 0 unit SC ACHS [facility] PRN Reason: Protocol Last Admin: 01/22/17 12:41 Dose: 2 unit Lisinopril (Zestril) 20 mg PO DAILY [facility] Last Admin: 01/22/17 09:05 Dose: 20 mg Metformin HCl (Glucophage) 1,000 mg PO BIDCC [facility] Last Admin: 01/22/17 08:00 Dose: Not Given Mupirocin (Bactroban Ointment) 0 gm TOP DAILY [facility] Last Admin: 01/22/17 09:04 Dose: 1 applic Pantoprazole Sodium (Protonix Ec Tab) 40 mg PO DAILY [facility] Last Admin: 01/22/17 09:05 Dose: 40 mg Rosuvastatin Calcium (Crestor) 5 mg PO HS [facility] Last Admin: 01/21/17 21:04 Dose: 5 mg Sennosides (Senokot Tab) 8.6 mg PO DAILY [facility] Last Admin: 01/22/17 09:05 Dose: 8.6 mg - Labs Labs: 01/21/17 06:22 01/21/17 06:22 PT 12.0 SECONDS (9.7-12.2) 01/21/17 06:22 INR 1.1 01/21/17 06:22 APTT 29 SECONDS (21-34) 01/21/17 06:22 - Constitutional Appears: Non-toxic, Chronically Ill - Head Exam Head Exam: NORMOCEPHALIC - Eye Exam Eye Exam: absent: Scleral icterus - ENT Exam ENT Exam: Mucous Membranes Dry - Neck Exam Neck Exam: absent: Lymphadenopathy - Respiratory Exam Respiratory Exam: Decreased Breath Sounds - Cardiovascular Exam Cardiovascular Exam: REGULAR RHYTHM - GI/Abdominal Exam GI & Abdominal Exam: Distended, Soft. absent: Tenderness - Rectal Exam Rectal Exam: Deferred - Exam Exam: NORMAL INSPECTION Assessment and Plan (1) Diabetic foot ulcer Status: Acute (2) Cellulitis of toe of left foot Status: Acute
--- NOTE | 2017-01-22 21:21 | CP.PCM.PN ---
Subjective - Date & Time of Evaluation Date of Evaluation: 01/22/17 Time of Evaluation: 10:40 - Subjective Subjective: clinically same Objective - Vital Signs/Intake and Output Vital Signs (last 24 hours): Temp Pulse Resp BP Pulse Ox 97.9 F 72 20 154/84 H 95 01/22/17 15:00 01/22/17 15:00 01/22/17 15:00 01/22/17 15:00 01/22/17 15:00 Intake and Output: 01/22/17 01/23/17 18:59 06:59 Intake Total 400 Balance 400 - Medications Medications: Current Medications Acetaminophen (Tylenol 325mg Tab) 650 mg PO Q6 PRN PRN Reason: Pain, severe (8-10) Last Admin: 01/22/17 09:05 Dose: 650 mg Aspirin (Ecotrin) 81 mg PO DAILY [facility] Last Admin: 01/22/17 09:05 Dose: 81 mg Docusate Sodium (Colace) 100 mg PO BID [facility] Last Admin: 01/22/17 17:38 Dose: 100 mg Enoxaparin Sodium (Lovenox) 40 mg SC DAILY [facility] Last Admin: 01/22/17 09:12 Dose: 40 mg Glimepiride (Amaryl) 2 mg PO ACB [facility] Last Admin: 01/22/17 07:30 Dose: 2 mg Piperacillin Sod/Tazobactam (Sod 3.375 gm/ Sodium Chloride) 100 mls @ 200 mls/ hr IVPB Q8H [facility] Last Admin: 01/22/17 17:41 Dose: 200 mls/hr Insulin Aspart (Novolog) 0 unit SC ACHS [facility] PRN Reason: Protocol Last Admin: 01/22/17 17:38 Dose: Not Given Lactulose (Enulose) 20 gm PO HS PRN PRN Reason: Constipation Lisinopril (Zestril) 20 mg PO DAILY [facility] Last Admin: 01/22/17 09:05 Dose: 20 mg Metformin HCl (Glucophage) 1,000 mg PO BIDCC [facility] Last Admin: 01/22/17 17:38 Dose: 1,000 mg Mupirocin (Bactroban Ointment) 0 gm TOP DAILY [facility] Last Admin: 01/22/17 09:04 Dose: 1 applic Pantoprazole Sodium (Protonix Ec Tab) 40 mg PO DAILY [facility] Last Admin: 01/22/17 09:05 Dose: 40 mg Rosuvastatin Calcium (Crestor) 5 mg PO HS [facility] Last Admin: 01/21/17 21:04 Dose: 5 mg Sennosides (Senokot Tab) 8.6 mg PO DAILY [facility] Last Admin: 01/22/17 09:05 Dose: 8.6 mg - Labs Labs: 01/21/17 06:22 01/21/17 06:22 PT 12.0 SECONDS (9.7-12.2) 01/21/17 06:22 INR 1.1 01/21/17 06:22 APTT 29 SECONDS (21-34) 01/21/17 06:22
[2017-01-23] MEDS: Piperacillin/Tazobact 3.375 GM in Sodium Chloride 100 ML IVPB SCH ×3 (01:55→18:10)
[2017-01-23] MEDS: (Novolog) Insulin Aspart, Recombinant 100 u/ml 10 ml vial SC SCH ×4 (08:04→22:33)
--- NOTE | 2017-01-23 08:25 | CP.PCM.PN ---
Subjective - Date & Time of Evaluation Date of Evaluation: 01/23/17 Time of Evaluation: 08:22 - Subjective Subjective: Patient complains of throbbing overnight in left knee, but currently pain is controlled. Objective - Vital Signs/Intake and Output Vital Signs (last 24 hours): Temp Pulse Resp BP Pulse Ox 98.4 F 86 20 146/79 96 01/23/17 00:00 01/23/17 00:00 01/23/17 00:00 01/23/17 00:00 01/23/17 00:00 Intake and Output: 01/23/17 01/23/17 06:59 18:59 Intake Total 300 Balance 300 - Medications Medications: Current Medications Acetaminophen (Tylenol 325mg Tab) 650 mg PO Q6 PRN PRN Reason: Pain, severe (8-10) Last Admin: 01/22/17 09:05 Dose: 650 mg Aspirin (Ecotrin) 81 mg PO DAILY [facility] Last Admin: 01/22/17 09:05 Dose: 81 mg Docusate Sodium (Colace) 100 mg PO BID [facility] Last Admin: 01/22/17 17:38 Dose: 100 mg Enoxaparin Sodium (Lovenox) 40 mg SC DAILY [facility] Last Admin: 01/22/17 09:12 Dose: 40 mg Glimepiride (Amaryl) 2 mg PO ACB [facility] Last Admin: 01/23/17 08:03 Dose: Not Given Piperacillin Sod/Tazobactam (Sod 3.375 gm/ Sodium Chloride) 100 mls @ 200 mls/ hr IVPB Q8H [facility] Last Admin: 01/23/17 01:55 Dose: 200 mls/hr Insulin Aspart (Novolog) 0 unit SC ACHS [facility] PRN Reason: Protocol Last Admin: 01/23/17 08:04 Dose: Not Given Lactulose (Enulose) 20 gm PO HS PRN PRN Reason: Constipation Last Admin: 01/22/17 21:35 Dose: 20 gm Lisinopril (Zestril) 20 mg PO DAILY [facility] Last Admin: 01/22/17 09:05 Dose: 20 mg Metformin HCl (Glucophage) 1,000 mg PO BIDCC [facility] Last Admin: 01/23/17 08:03 Dose: Not Given Mupirocin (Bactroban Ointment) 0 gm TOP DAILY [facility] Last Admin: 01/22/17 09:04 Dose: 1 applic Pantoprazole Sodium (Protonix Ec Tab) 40 mg PO DAILY [facility] Last Admin: 01/22/17 09:05 Dose: 40 mg Rosuvastatin Calcium (Crestor) 5 mg PO HS [facility] Last Admin: 01/22/17 21:35 Dose: 5 mg Sennosides (Senokot Tab) 8.6 mg PO DAILY [facility] Last Admin: 01/22/17 09:05 Dose: 8.6 mg - Labs Labs: 01/21/17 06:22 01/21/17 06:22 PT 12.0 SECONDS (9.7-12.2) 01/21/17 06:22 INR 1.1 01/21/17 06:22 APTT 29 SECONDS (21-34) 01/21/17 06:22 - Extremities Exam Additional comments: knee brace intact, noted ecchymosis, no erythema, not warm, patella sitting proximally. calves soft NT neg homans, +ROM ankle, toes, sensation intact Assessment and Plan (1) Rupture of left patellar tendon Assessment & Plan: Re-rupture due to fall Per Dr. Flannery, patient to complete course of antibiotics, and can follow up orthopedic doctor as outpatient, would recommend follwoing up with Dr. Shaver ideally as he did the initial surgery, or in office of Dr. Flannery, or she can call PMD for ortho referral in [facility] and Dr. Flannery would recommend Dr. Colmenares, once infection improved. WBAT in brace at all times per Dr. Flannery VTE proph Status: Acute
--- NOTE | 2017-01-23 10:24 | PCM.SURG1 ---
Surgeon's Initial Post Op Note - Surgeon's Notes Surgeon: Trever Bales MD [employer] Instructor: None Type of Anesthesia: Local Pre-Operative Diagnosis: Poor venous access Operative Findings: Patent right basilic vein. Post-Operative Diagnosis: Poor venous access Operation Performed: Single lumen picc placement right basilic vein, 37 cm. Tip in SVC. Specimen/Specimens Removed: None Estimated Blood Loss: EBL {In ML}: 2 Blood Products Given: N/A Drains Used: No Drains Post-Op Condition: Fair Date of Surgery/Procedure: 01/23/17 Time of Surgery/Procedure: 10:20
--- NOTE | 2017-01-23 10:35 | CP.PCM.PN ---
Subjective - Date & Time of Evaluation Date of Evaluation: 01/23/17 Time of Evaluation: 08:00 - Subjective Subjective: clinically same Objective - Vital Signs/Intake and Output Vital Signs (last 24 hours): Temp Pulse Resp BP Pulse Ox 98.6 F 90 20 171/80 H 98 01/23/17 10:31 01/23/17 10:31 01/23/17 10:31 01/23/17 10:31 01/23/17 10:31 Intake and Output: 01/23/17 01/23/17 06:59 18:59 Intake Total 300 Balance 300 - Medications Medications: Current Medications Acetaminophen (Tylenol 325mg Tab) 650 mg PO Q6 PRN PRN Reason: Pain, severe (8-10) Last Admin: 01/22/17 09:05 Dose: 650 mg Aspirin (Ecotrin) 81 mg PO DAILY [facility] Last Admin: 01/22/17 09:05 Dose: 81 mg Docusate Sodium (Colace) 100 mg PO BID [facility] Last Admin: 01/22/17 17:38 Dose: 100 mg Enoxaparin Sodium (Lovenox) 40 mg SC DAILY [facility] Last Admin: 01/22/17 09:12 Dose: 40 mg Glimepiride (Amaryl) 2 mg PO ACB [facility] Last Admin: 01/23/17 08:03 Dose: Not Given Piperacillin Sod/Tazobactam (Sod 3.375 gm/ Sodium Chloride) 100 mls @ 200 mls/ hr IVPB Q8H [facility] Last Admin: 01/23/17 01:55 Dose: 200 mls/hr Insulin Aspart (Novolog) 0 unit SC ACHS [facility] PRN Reason: Protocol Last Admin: 01/23/17 08:04 Dose: Not Given Lactulose (Enulose) 20 gm PO HS PRN PRN Reason: Constipation Last Admin: 01/22/17 21:35 Dose: 20 gm Lisinopril (Zestril) 20 mg PO DAILY [facility] Last Admin: 01/22/17 09:05 Dose: 20 mg Metformin HCl (Glucophage) 1,000 mg PO BIDCC [facility] Last Admin: 01/23/17 08:03 Dose: Not Given Mupirocin (Bactroban Ointment) 0 gm TOP DAILY [facility] Last Admin: 01/22/17 09:04 Dose: 1 applic Pantoprazole Sodium (Protonix Ec Tab) 40 mg PO DAILY [facility] Last Admin: 01/22/17 09:05 Dose: 40 mg Rosuvastatin Calcium (Crestor) 5 mg PO HS [facility] Last Admin: 01/22/17 21:35 Dose: 5 mg Sennosides (Senokot Tab) 8.6 mg PO DAILY [facility] Last Admin: 01/22/17 09:05 Dose: 8.6 mg - Labs Labs: 01/21/17 06:22 01/21/17 06:22 PT 12.0 SECONDS (9.7-12.2) 01/21/17 06:22 INR 1.1 01/21/17 06:22 APTT 29 SECONDS (21-34) 01/21/17 06:22 - Constitutional Appears: Well - Head Exam Head Exam: ATRAUMATIC, NORMAL INSPECTION, NORMOCEPHALIC - Eye Exam Eye Exam: EOMI, Normal appearance, PERRL Pupil Exam: NORMAL ACCOMODATION, PERRL - ENT Exam ENT Exam: Mucous Membranes Moist, Normal Exam - Neck Exam Neck Exam: Full ROM, Normal Inspection. absent: Lymphadenopathy - Respiratory Exam Respiratory Exam: Decreased Breath Sounds - Cardiovascular Exam Cardiovascular Exam: REGULAR RHYTHM, +S1, +S2 - GI/Abdominal Exam GI & Abdominal Exam: Soft, Diminished Bowel Sounds - Rectal Exam Rectal Exam: Deferred
--- NOTE | 2017-01-23 11:18 | SPECPROC ---
PROCEDURE: Date of procedure: 01/23/2017 Procedure: 1. Placement of a right arm PICC with ultrasound and fluoroscopic guidance, CPT 07536 2. PICC tip confirmation with spot radiograph and is in the superior vena cava Medications: 3cc 1 percent lidocaine HISTORY: Infection requiring long-term IV antibiotics TECHNIQUE: Following informed consent and procedure time-out, the patient was placed supine on the interventional table and the right arm prepped and draped in the usual sterile fashion. Ultrasound showed a patent and compressible right basilic vein. After the skin was anesthetized with lidocaine, the basilic vein was accessed with micro micropuncture technique using ultrasound guidance. A guidewire was then advanced under fluoroscopic guidance into the superior vena cava. An image documenting ultrasound guidance for vascular access was permanently saved. The length of the single-lumen 5 [place] PICC was trimmed to 37 centimeters and advanced through a peel-away sheath. The PICC was position with tip of PICC confirm a spot radiograph the superior vena cava. The PICC was secured to the patient's skin. The PICC was flushed. A biopatch and sterile dressing was applied. IMPRESSION: Placement of a single-lumen 5 [place] PICC trimmed to 37 centimeters via right basilic vein. The tip of the PICC is confirmed with spot radiograph and is in the superior vena cava.
--- NOTE | 2017-01-23 11:29 | CP.PCM.PN ---
Subjective - Date & Time of Evaluation Date of Evaluation: 01/23/17 Time of Evaluation: 11:29 - Subjective Subjective: 61 y/o female seen at bedside for wound of left foot. Patient appears in NAD and AAOx3 with dressing intact to left foot and patellar brace intact to left leg. Patient denies any pain or discomfort in the foot at this time. She denies any acute events overnight. Patient denies any pedal complaints at this time. She denies n/.f/c/d/v/sob, however does complain of some lightheadedness earlier this morning. Objective - Vital Signs/Intake and Output Vital Signs (last 24 hours): Temp Pulse Resp BP Pulse Ox 98.6 F 90 20 171/80 H 98 01/23/17 10:31 01/23/17 10:31 01/23/17 10:31 01/23/17 10:31 01/23/17 10:31 Intake and Output: 01/23/17 01/23/17 06:59 18:59 Intake Total 300 Balance 300 - Medications Medications: Current Medications Acetaminophen (Tylenol 325mg Tab) 650 mg PO Q6 PRN PRN Reason: Pain, severe (8-10) Last Admin: 01/22/17 09:05 Dose: 650 mg Aspirin (Ecotrin) 81 mg PO DAILY [facility] Last Admin: 01/22/17 09:05 Dose: 81 mg Docusate Sodium (Colace) 100 mg PO BID [facility] Last Admin: 01/22/17 17:38 Dose: 100 mg Enoxaparin Sodium (Lovenox) 40 mg SC DAILY [facility] Last Admin: 01/22/17 09:12 Dose: 40 mg Glimepiride (Amaryl) 2 mg PO ACB [facility] Last Admin: 01/23/17 08:03 Dose: Not Given Piperacillin Sod/Tazobactam (Sod 3.375 gm/ Sodium Chloride) 100 mls @ 200 mls/ hr IVPB Q8H [facility] Last Admin: 01/23/17 01:55 Dose: 200 mls/hr Insulin Aspart (Novolog) 0 unit SC ACHS [facility] PRN Reason: Protocol Last Admin: 01/23/17 08:04 Dose: Not Given Lactulose (Enulose) 20 gm PO HS PRN PRN Reason: Constipation Last Admin: 01/22/17 21:35 Dose: 20 gm Lisinopril (Zestril) 20 mg PO DAILY [facility] Last Admin: 01/22/17 09:05 Dose: 20 mg Metformin HCl (Glucophage) 1,000 mg PO BIDCC [facility] Last Admin: 01/23/17 08:03 Dose: Not Given Mupirocin (Bactroban Ointment) 0 gm TOP DAILY [facility] Last Admin: 01/22/17 09:04 Dose: 1 applic Pantoprazole Sodium (Protonix Ec Tab) 40 mg PO DAILY [facility] Last Admin: 01/22/17 09:05 Dose: 40 mg Rosuvastatin Calcium (Crestor) 5 mg PO HS [facility] Last Admin: 01/22/17 21:35 Dose: 5 mg Sennosides (Senokot Tab) 8.6 mg PO DAILY [facility] Last Admin: 01/22/17 09:05 Dose: 8.6 mg - Labs Labs: 01/21/17 06:22 01/21/17 06:22 PT 12.0 SECONDS (9.7-12.2) 01/21/17 06:22 INR 1.1 01/21/17 06:22 APTT 29 SECONDS (21-34) 01/21/17 06:22 - Constitutional Appears: Well, Non-toxic, No Acute Distress - Extremities Exam Additional comments: Vasc: lightly palpable DP pulse, nonpalpable PT pulse, TG wnl, CFT < 3 sec to all digits neuro; grossly diminished derm: no edema, localized erythema to dorsolateral left foot, open lesion measuring 3cm x 2cm x 0.1cm with granular base, no drainage, no malodor, no purulence, no undermining, no probe to bone ortho: no pain on palpation to dorsal wound of left foot - Neurological Exam Neurological Exam: Alert, Awake, Oriented x3 - Psychiatric Exam Psychiatric exam: Normal Affect, Normal Mood Assessment and Plan - Assessment and Plan (Free Text) Assessment: 61 y/o female seen at bedside regarding left foot burn 2/2 diabetic neuropathy Plan: Pt S&E at bedside Plan discussed in detail with attending Dr. Bejarano Chart, labs and vitals reviewed: afebrile SHANNAN francoD applied to left foot wound cx: e.coli continue IV abx as per Dr. Kennedy, ID Stable per podiatry podiatry will continue to follow while patient remains in house
[2017-01-23] MEDS: Enoxaparin 40 mg Syringe SC SCH (12:21)
[2017-01-23] MEDS: Pantoprazole 40 mg EC Tab PO SCH (12:22)
--- NOTE | 2017-01-23 15:32 | CP.PCM.PN ---
Subjective - Date & Time of Evaluation Date of Evaluation: 01/23/17 Time of Evaluation: 15:27 - Subjective Subjective: PGY2 progress note for Dr. Mercado Pt is seen and examined at bedside. No acute events overnight. Patient had PICC line placed this morning. patient denies having any CP, SOB, abd pain, N/V /D/C, dysuria. patient denies having any pain in her LE. 12 point ROS are negative except for the above mentioned. Objective - Vital Signs/Intake and Output Vital Signs (last 24 hours): Temp Pulse Resp BP Pulse Ox 98.6 F 90 20 171/80 H 98 01/23/17 10:31 01/23/17 10:31 01/23/17 10:31 01/23/17 10:31 01/23/17 10:31 Intake and Output: 01/23/17 01/23/17 06:59 18:59 Intake Total 300 Balance 300 - Medications Medications: Current Medications Acetaminophen (Tylenol 325mg Tab) 650 mg PO Q6 PRN PRN Reason: Pain, severe (8-10) Last Admin: 01/22/17 09:05 Dose: 650 mg Aspirin (Ecotrin) 81 mg PO DAILY [facility] Last Admin: 01/23/17 12:21 Dose: 81 mg Docusate Sodium (Colace) 100 mg PO BID [facility] Last Admin: 01/23/17 12:24 Dose: 100 mg Enoxaparin Sodium (Lovenox) 40 mg SC DAILY [facility] Last Admin: 01/23/17 12:21 Dose: 40 mg Glimepiride (Amaryl) 2 mg PO ACB [facility] Last Admin: 01/23/17 08:03 Dose: Not Given Piperacillin Sod/Tazobactam (Sod 3.375 gm/ Sodium Chloride) 100 mls @ 200 mls/ hr IVPB Q8H [facility] Last Admin: 01/23/17 12:30 Dose: 200 mls/hr Insulin Aspart (Novolog) 0 unit SC ACHS [facility] PRN Reason: Protocol Last Admin: 01/23/17 12:23 Dose: Not Given Lactulose (Enulose) 20 gm PO HS PRN PRN Reason: Constipation Last Admin: 01/22/17 21:35 Dose: 20 gm Lisinopril (Zestril) 20 mg PO DAILY [facility] Last Admin: 01/23/17 12:30 Dose: 20 mg Metformin HCl (Glucophage) 1,000 mg PO BIDCC [facility] Last Admin: 01/23/17 08:03 Dose: Not Given Mupirocin (Bactroban Ointment) 0 gm TOP DAILY [facility] Last Admin: 01/23/17 12:24 Dose: Not Given Pantoprazole Sodium (Protonix Ec Tab) 40 mg PO DAILY [facility] Last Admin: 01/23/17 12:22 Dose: 40 mg Rosuvastatin Calcium (Crestor) 5 mg PO HS [facility] Last Admin: 01/22/17 21:35 Dose: 5 mg Sennosides (Senokot Tab) 8.6 mg PO DAILY [facility] Last Admin: 01/23/17 12:22 Dose: 8.6 mg - Labs Labs: 01/21/17 06:22 01/21/17 06:22 PT 12.0 SECONDS (9.7-12.2) 01/21/17 06:22 INR 1.1 01/21/17 06:22 APTT 29 SECONDS (21-34) 01/21/17 06:22 - Constitutional Appears: Non-toxic, No Acute Distress - Head Exam Head Exam: ATRAUMATIC - Eye Exam Eye Exam: EOMI - ENT Exam ENT Exam: Mucous Membranes Moist - Respiratory Exam Respiratory Exam: Clear to Ausculation Bilateral, NORMAL BREATHING PATTERN. absent: Accessory Muscle Use, Rales, Rhonchi, Wheezes, Respiratory Distress - Cardiovascular Exam Cardiovascular Exam: REGULAR RHYTHM, +S1, +S2. absent: Gallop, Rubs, Murmur - GI/Abdominal Exam GI & Abdominal Exam: Soft, Normal Bowel Sounds. absent: Distended, Firm, Guarding, Rigid, Tenderness, Organomegaly, Rebound - Extremities Exam Extremities Exam: absent: Pedal Edema, Tenderness - Neurological Exam Neurological Exam: Alert, Awake, Oriented x3 - Psychiatric Exam Psychiatric exam: Normal Affect, Normal Mood - Skin Skin Exam: Dry, Intact, Normal Color, Warm Assessment and Plan - Assessment and Plan (Free Text) Assessment: Left patellar fracture with swelling - Ortho, Dr. Barakat is consulted. Recommends patient to complete course of antibiotics, and can follow up orthopedic doctor as outpatient. WBAT in brace at all times - Knee x ray on 01/17 showed displaced comminuted fracture of inferior patella, 3.7 cm superior displacement of proximal fracture; large suprapatellar joint effusion/hematoma. - MRI Left leg- Prominent complete fracture deformity through the lower pole of the bony patella with approximately 2 centimeter superior distraction of the superior patellar fragment - Venous dopplers normal - Physical therapy and assistance OOB Left foot diabetic ulcer - Foot xray done on 01/16 showed lateral 5th metatarsal phalangeal joint soft tissue swelling with no osteomyelitis noted - Podiatry consulted Dr Bejarano- help appreciated. Daily dressing changes. - Local wound care - Wound culture grew gram negative rods- E. coli with sensitivities - ID is consulted, help appreciated - Negative blood cultures x48 hours - Patient is currently on Zosyn 3.375 mg IV q8. will continue for about 3 weeks. DM - ISS medium - Accuchecks, sugars well controlled - Metformin 1000mg PO BID and Amaryl 2mg PO ACB - HgA1C 6.5 HLD - TG 86, Cholesterol 152, LDL 102, HDL 32 - Crestor 5 mg po qd HTN - Lisinopril 20 mg po qd - Will continue to monitor vital signs Prophylactic measures - Lovenox 40mg SC daily - Protonix 40mg PO daily - PT/OT eval - SCDs contraindicated due to LE injury Dispo: Consulted case management today for placement into [facility] for intermediate IV antibiotics. Case discussed with attending, Dr. Mercado Orders and management per Dr. Mercado
[2017-01-24] MEDS: Piperacillin/Tazobact 3.375 GM in Sodium Chloride 100 ML IVPB SCH ×3 (02:30→17:19)
[2017-01-24 07:28] LABS: HEMOGLOBIN 9.7 g/dL (11.0-16.0); MEAN CELL VOLUME 85.7 fL (81.0-99.0); MEAN CORPUSCULAR HEMOGLOBIN 28.8 pg (27.0-31.0); MEAN CORPUSCULAR HGB CONC 33.6 g/dL (33.0-37.0); RBC 3.39 Mil/uL (3.80-5.20); RED CELL DISTRIBUTION WIDTH 14.6 % (11.5-14.5); WHITE BLOOD COUNT 7.5 K/uL (4.8-10.8)
[2017-01-24 07:41] LABS: ALBUMIN 3.4 g/dL (3.5-5.0)
[2017-01-24 07:44] LABS: AST/SGOT 21 U/L (14-36); GFR AFRICAN-AMERICAN > 60; GFR NON-AFRICAN AMERICAN > 60
[2017-01-24 07:45] LABS: ALT/SGPT 21 U/L (9-52); BLOOD UREA NITROGEN 18 mg/dL (7-17); CALCIUM 8.7 mg/dl (8.6-10.4)
--- NOTE | 2017-01-24 08:00 | CP.PCM.PN ---
Subjective - Date & Time of Evaluation Date of Evaluation: 01/24/17 Time of Evaluation: 07:58 - Subjective Subjective: Patient states pain in knee is mild, tolerated PT well. Objective - Vital Signs/Intake and Output Vital Signs (last 24 hours): Temp Pulse Resp BP Pulse Ox 98.6 F 80 20 149/76 96 01/24/17 00:00 01/24/17 00:00 01/24/17 00:00 01/24/17 00:00 01/24/17 00:00 Intake and Output: 01/24/17 01/24/17 06:59 18:59 Intake Total 800 Balance 800 - Medications Medications: Current Medications Acetaminophen (Tylenol 325mg Tab) 650 mg PO Q6 PRN PRN Reason: Pain, severe (8-10) Last Admin: 01/22/17 09:05 Dose: 650 mg Aspirin (Ecotrin) 81 mg PO DAILY [facility] Last Admin: 01/23/17 12:21 Dose: 81 mg Docusate Sodium (Colace) 100 mg PO BID [facility] Last Admin: 01/23/17 18:09 Dose: 100 mg Enoxaparin Sodium (Lovenox) 40 mg SC DAILY [facility] Last Admin: 01/23/17 12:21 Dose: 40 mg Glimepiride (Amaryl) 2 mg PO ACB [facility] Last Admin: 01/23/17 08:03 Dose: Not Given Piperacillin Sod/Tazobactam (Sod 3.375 gm/ Sodium Chloride) 100 mls @ 200 mls/ hr IVPB Q8H [facility] Last Admin: 01/24/17 02:30 Dose: 200 mls/hr Insulin Aspart (Novolog) 0 unit SC ACHS [facility] PRN Reason: Protocol Last Admin: 01/23/17 22:33 Dose: Not Given Lactulose (Enulose) 20 gm PO HS PRN PRN Reason: Constipation Last Admin: 01/22/17 21:35 Dose: 20 gm Lisinopril (Zestril) 20 mg PO DAILY [facility] Last Admin: 01/23/17 12:30 Dose: 20 mg Metformin HCl (Glucophage) 1,000 mg PO BIDCC [facility] Last Admin: 01/23/17 18:09 Dose: 1,000 mg Mupirocin (Bactroban Ointment) 0 gm TOP DAILY [facility] Last Admin: 01/23/17 12:24 Dose: Not Given Pantoprazole Sodium (Protonix Ec Tab) 40 mg PO DAILY [facility] Last Admin: 01/23/17 12:22 Dose: 40 mg Rosuvastatin Calcium (Crestor) 5 mg PO HS [facility] Last Admin: 01/23/17 22:32 Dose: 5 mg Sennosides (Senokot Tab) 8.6 mg PO DAILY [facility] Last Admin: 01/23/17 12:22 Dose: 8.6 mg - Labs Labs: 01/24/17 07:12 01/24/17 07:12 PT 12.0 SECONDS (9.7-12.2) 01/21/17 06:22 INR 1.1 01/21/17 06:22 APTT 29 SECONDS (21-34) 01/21/17 06:22 - Extremities Exam Additional comments: LLE: +ROM ankle/toes, brace intact, calves soft NT neg homans. Sensation intact. +ecchymosis, no erythema. Assessment and Plan (1) Rupture of left patellar tendon Assessment & Plan: Re-rupture due to fall Per Dr. Flannery, patient to complete course of antibiotics, and can follow up orthopedic doctor as outpatient, would recommend follwoing up with Dr. Shaver ideally as he did the initial surgery, or in office of Dr. Flannery, or she can call PMD for ortho referral in [facility] and Dr. Flannery would recommend Dr. Colmenares, once infection improved. WBAT in brace at all times per Dr. Flannery VTE proph Cont PT/OT Status: Acute
[2017-01-24] MEDS: (Novolog) Insulin Aspart, Recombinant 100 u/ml 10 ml vial SC SCH ×3 (08:10→17:15)
--- NOTE | 2017-01-24 08:48 | CP.PCM.PN ---
Subjective - Date & Time of Evaluation Date of Evaluation: 01/24/17 Time of Evaluation: 08:47 - Subjective Subjective: 61 y/o female seen at bedside for wound of left foot. Patient appears in NAD and AAOx3 with dressing intact to left foot and patellar brace intact to left leg. Patient denies any pain or discomfort in the foot at this time. She denies any acute events overnight. Patient denies any pedal complaints at this time. She denies n/.f/c/d/v/sob, however does complain of some lightheadedness earlier this morning. Objective - Vital Signs/Intake and Output Vital Signs (last 24 hours): Temp Pulse Resp BP Pulse Ox 98.4 F 89 20 122/72 95 01/24/17 08:00 01/24/17 08:00 01/24/17 08:00 01/24/17 08:00 01/24/17 08:00 Intake and Output: 01/24/17 01/24/17 06:59 18:59 Intake Total 800 Balance 800 - Medications Medications: Current Medications Acetaminophen (Tylenol 325mg Tab) 650 mg PO Q6 PRN PRN Reason: Pain, severe (8-10) Last Admin: 01/22/17 09:05 Dose: 650 mg Aspirin (Ecotrin) 81 mg PO DAILY [facility] Last Admin: 01/23/17 12:21 Dose: 81 mg Docusate Sodium (Colace) 100 mg PO BID [facility] Last Admin: 01/23/17 18:09 Dose: 100 mg Enoxaparin Sodium (Lovenox) 40 mg SC DAILY [facility] Last Admin: 01/23/17 12:21 Dose: 40 mg Glimepiride (Amaryl) 2 mg PO ACB [facility] Last Admin: 01/23/17 08:03 Dose: Not Given Piperacillin Sod/Tazobactam (Sod 3.375 gm/ Sodium Chloride) 100 mls @ 200 mls/ hr IVPB Q8H [facility] Last Admin: 01/24/17 02:30 Dose: 200 mls/hr Insulin Aspart (Novolog) 0 unit SC ACHS [facility] PRN Reason: Protocol Last Admin: 01/23/17 22:33 Dose: Not Given Lactulose (Enulose) 20 gm PO HS PRN PRN Reason: Constipation Last Admin: 01/22/17 21:35 Dose: 20 gm Lisinopril (Zestril) 20 mg PO DAILY [facility] Last Admin: 01/23/17 12:30 Dose: 20 mg Metformin HCl (Glucophage) 1,000 mg PO BIDCC [facility] Last Admin: 01/23/17 18:09 Dose: 1,000 mg Mupirocin (Bactroban Ointment) 0 gm TOP DAILY [facility] Last Admin: 01/23/17 12:24 Dose: Not Given Pantoprazole Sodium (Protonix Ec Tab) 40 mg PO DAILY [facility] Last Admin: 01/23/17 12:22 Dose: 40 mg Rosuvastatin Calcium (Crestor) 5 mg PO HS [facility] Last Admin: 01/23/17 22:32 Dose: 5 mg Sennosides (Senokot Tab) 8.6 mg PO DAILY [facility] Last Admin: 01/23/17 12:22 Dose: 8.6 mg - Labs Labs: 01/24/17 07:12 01/24/17 07:12 PT 12.0 SECONDS (9.7-12.2) 01/21/17 06:22 INR 1.1 01/21/17 06:22 APTT 29 SECONDS (21-34) 01/21/17 06:22 - Constitutional Appears: Well, Non-toxic, No Acute Distress - Extremities Exam Additional comments: Vasc: lightly palpable DP pulse, nonpalpable PT pulse, TG wnl, CFT < 3 sec to all digits neuro; grossly diminished derm: no edema, localized erythema to dorsolateral left foot, open lesion measuring 3cm x 2cm x 0.1cm with granular base, no drainage, no malodor, no purulence, no undermining, no probe to bone ortho: no pain on palpation to dorsal wound of left foot - Neurological Exam Neurological Exam: Alert, Awake, Oriented x3 - Psychiatric Exam Psychiatric exam: Normal Affect, Normal Mood Assessment and Plan - Assessment and Plan (Free Text) Assessment: 61 y/o female seen at bedside regarding left foot burn 2/2 diabetic neuropathy Plan: Pt S&E at bedside Plan discussed in detail with attending Dr. Bejarano Chart, labs and vitals reviewed: afebrile SHNANAN francoD applied to left foot wound cx: e.coli continue IV abx as per Dr. Kennedy, ID Stable per podiatry podiatry will continue to follow while patient remains in house
--- NOTE | 2017-01-24 09:50 | CP.PCM.PN ---
Subjective - Date & Time of Evaluation Date of Evaluation: 01/24/17 Time of Evaluation: 09:10 - Subjective Subjective: PGY3 progress note for Dr. Mercado Pt is seen and examined at bedside this AM. No acute events overnight. Patient had PICC line placed yesterday. Patient denies having any CP, SOB, abd pain, N/V/D/C, dysuria. Patient denies having any pain in her LE. Patient is crying and reports feeling very depressed because of her leg and her family. 12 point ROS are negative except for the above mentioned. Objective - Vital Signs/Intake and Output Vital Signs (last 24 hours): Temp Pulse Resp BP Pulse Ox 98.4 F 89 20 122/72 95 01/24/17 08:00 01/24/17 08:00 01/24/17 08:00 01/24/17 08:00 01/24/17 08:00 Intake and Output: 01/24/17 01/24/17 06:59 18:59 Intake Total 800 Balance 800 - Medications Medications: Current Medications Acetaminophen (Tylenol 325mg Tab) 650 mg PO Q6 PRN PRN Reason: Pain, severe (8-10) Last Admin: 01/22/17 09:05 Dose: 650 mg Aspirin (Ecotrin) 81 mg PO DAILY [facility] Last Admin: 01/23/17 12:21 Dose: 81 mg Docusate Sodium (Colace) 100 mg PO BID [facility] Last Admin: 01/23/17 18:09 Dose: 100 mg Enoxaparin Sodium (Lovenox) 40 mg SC DAILY [facility] Last Admin: 01/23/17 12:21 Dose: 40 mg Glimepiride (Amaryl) 2 mg PO ACB [facility] Last Admin: 01/23/17 08:03 Dose: Not Given Piperacillin Sod/Tazobactam (Sod 3.375 gm/ Sodium Chloride) 100 mls @ 200 mls/ hr IVPB Q8H [facility] Last Admin: 01/24/17 02:30 Dose: 200 mls/hr Insulin Aspart (Novolog) 0 unit SC ACHS [facility] PRN Reason: Protocol Last Admin: 01/23/17 22:33 Dose: Not Given Lactulose (Enulose) 20 gm PO HS PRN PRN Reason: Constipation Last Admin: 01/22/17 21:35 Dose: 20 gm Lisinopril (Zestril) 20 mg PO DAILY [facility] Last Admin: 01/23/17 12:30 Dose: 20 mg Metformin HCl (Glucophage) 1,000 mg PO BIDCC [facility] Last Admin: 01/23/17 18:09 Dose: 1,000 mg Mupirocin (Bactroban Ointment) 0 gm TOP DAILY [facility] Last Admin: 01/23/17 12:24 Dose: Not Given Pantoprazole Sodium (Protonix Ec Tab) 40 mg PO DAILY [facility] Last Admin: 01/23/17 12:22 Dose: 40 mg Rosuvastatin Calcium (Crestor) 5 mg PO HS [facility] Last Admin: 01/23/17 22:32 Dose: 5 mg Sennosides (Senokot Tab) 8.6 mg PO DAILY [facility] Last Admin: 01/23/17 12:22 Dose: 8.6 mg - Labs Labs: 01/24/17 07:12 01/24/17 07:12 PT 12.0 SECONDS (9.7-12.2) 01/21/17 06:22 INR 1.1 01/21/17 06:22 APTT 29 SECONDS (21-34) 01/21/17 06:22 - Constitutional Appears: Non-toxic, No Acute Distress - Head Exam Head Exam: NORMAL INSPECTION - Eye Exam Eye Exam: EOMI - ENT Exam ENT Exam: Mucous Membranes Moist - Respiratory Exam Respiratory Exam: Clear to Ausculation Bilateral, NORMAL BREATHING PATTERN. absent: Rales, Rhonchi, Wheezes - Cardiovascular Exam Cardiovascular Exam: REGULAR RHYTHM, +S1, +S2. absent: Gallop, Rubs, Murmur - GI/Abdominal Exam GI & Abdominal Exam: Soft, Normal Bowel Sounds. absent: Tenderness - Extremities Exam Extremities Exam: Tenderness. absent: Pedal Edema Additional comments: left leg in brace - Neurological Exam Neurological Exam: Alert, Awake, Oriented x3 - Psychiatric Exam Psychiatric exam: Depressed - Skin Skin Exam: Normal Color, Warm Assessment and Plan - Assessment and Plan (Free Text) Assessment: Left patellar fracture with swelling - Ortho, Dr. Barakat is consulted. Recommends patient to complete course of antibiotics, and can follow up orthopedic doctor as outpatient. WBAT in brace at all times - Knee x ray on 01/17 showed displaced comminuted fracture of inferior patella, 3.7 cm superior displacement of proximal fracture; large suprapatellar joint effusion/hematoma. - MRI Left leg- Prominent complete fracture deformity through the lower pole of the bony patella with approximately 2 centimeter superior distraction of the superior patellar fragment - Venous dopplers normal - Physical therapy and assistance OOB Left foot diabetic ulcer - Foot xray done on 01/16 showed lateral 5th metatarsal phalangeal joint soft tissue swelling with no osteomyelitis noted - Podiatry consulted Dr Bejarano- help appreciated. Daily dressing changes. - Local wound care - Wound culture grew gram negative rods- E. coli with sensitivities - ID is consulted, help appreciated - Negative blood cultures x48 hours - Patient is currently on Zosyn 3.375 mg IV q8. will continue for about 3 weeks. Depression -Pastoral Care -Psych consult - Dr. Roach - f/u recs DM - ISS medium - Accuchecks, sugars well controlled - Metformin 1000mg PO BID and Amaryl 2mg PO ACB - HgA1C 6.5 HLD - TG 86, Cholesterol 152, LDL 102, HDL 32 - Crestor 5 mg po qd HTN - Lisinopril 20 mg po qd - Will continue to monitor vital signs Prophylactic measures - Lovenox 40mg SC daily - Protonix 40mg PO daily - PT/OT eval - SCDs contraindicated due to LE injury Dispo: Consulted case management yesterday for placement into [facility] for skilled nursing IV antibiotics. Case discussed with attending, Dr. Mercado Orders and management per Dr. Mercado
[2017-01-24] MEDS: Pantoprazole 40 mg EC Tab PO SCH (10:29)
[2017-01-24] MEDS: Enoxaparin 40 mg Syringe SC SCH (10:30)
--- NOTE | 2017-01-24 10:45 | CP.PCM.PN ---
Subjective - Date & Time of Evaluation Date of Evaluation: 01/24/17 Time of Evaluation: 07:40 - Subjective Subjective: clinically same Objective - Vital Signs/Intake and Output Vital Signs (last 24 hours): Temp Pulse Resp BP Pulse Ox 98.4 F 89 20 122/72 95 01/24/17 08:00 01/24/17 08:00 01/24/17 08:00 01/24/17 08:00 01/24/17 08:00 Intake and Output: 01/24/17 01/24/17 06:59 18:59 Intake Total 800 Balance 800 - Medications Medications: Current Medications Acetaminophen (Tylenol 325mg Tab) 650 mg PO Q6 PRN PRN Reason: Pain, severe (8-10) Last Admin: 01/22/17 09:05 Dose: 650 mg Aspirin (Ecotrin) 81 mg PO DAILY [facility] Last Admin: 01/24/17 10:29 Dose: 81 mg Docusate Sodium (Colace) 100 mg PO BID [facility] Last Admin: 01/24/17 10:29 Dose: 100 mg Enoxaparin Sodium (Lovenox) 40 mg SC DAILY [facility] Last Admin: 01/24/17 10:30 Dose: 40 mg Glimepiride (Amaryl) 2 mg PO ACB [facility] Last Admin: 01/24/17 08:30 Dose: Not Given Piperacillin Sod/Tazobactam (Sod 3.375 gm/ Sodium Chloride) 100 mls @ 200 mls/ hr IVPB Q8H [facility] Last Admin: 01/24/17 10:29 Dose: 200 mls/hr Insulin Aspart (Novolog) 0 unit SC ACHS [facility] PRN Reason: Protocol Last Admin: 01/24/17 08:10 Dose: Not Given Lactulose (Enulose) 20 gm PO HS PRN PRN Reason: Constipation Last Admin: 01/22/17 21:35 Dose: 20 gm Lisinopril (Zestril) 20 mg PO DAILY [facility] Last Admin: 01/24/17 10:29 Dose: 20 mg Metformin HCl (Glucophage) 1,000 mg PO BIDCC [facility] Last Admin: 01/24/17 08:10 Dose: Not Given Mupirocin (Bactroban Ointment) 0 gm TOP DAILY [facility] Last Admin: 01/24/17 10:30 Dose: Not Given Pantoprazole Sodium (Protonix Ec Tab) 40 mg PO DAILY [facility] Last Admin: 01/24/17 10:29 Dose: 40 mg Rosuvastatin Calcium (Crestor) 5 mg PO HS [facility] Last Admin: 01/23/17 22:32 Dose: 5 mg Sennosides (Senokot Tab) 8.6 mg PO DAILY [facility] Last Admin: 01/24/17 10:29 Dose: 8.6 mg - Labs Labs: 01/24/17 07:12 01/24/17 07:12 PT 12.0 SECONDS (9.7-12.2) 01/21/17 06:22 INR 1.1 01/21/17 06:22 APTT 29 SECONDS (21-34) 01/21/17 06:22 - Constitutional Appears: Well - Head Exam Head Exam: ATRAUMATIC, NORMAL INSPECTION, NORMOCEPHALIC - Eye Exam Eye Exam: EOMI, Normal appearance, PERRL Pupil Exam: NORMAL ACCOMODATION, PERRL - ENT Exam ENT Exam: Mucous Membranes Moist, Normal Exam - Neck Exam Neck Exam: Full ROM, Normal Inspection. absent: Lymphadenopathy - Respiratory Exam Respiratory Exam: Decreased Breath Sounds - Cardiovascular Exam Cardiovascular Exam: REGULAR RHYTHM, +S1, +S2 - GI/Abdominal Exam GI & Abdominal Exam: Soft, Diminished Bowel Sounds - Rectal Exam Rectal Exam: Deferred
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
[2017-01-24 16:05] VITALS: BP 159/81; PULSE 84; TEMP 98; O2SAT 98
== END 2017-01-24 19:00 | DRG 294 ==
LOC: C.ER 16:16 → C.9E 20:08 → C.3T 22:32 → OBSVTOIN 01-18 18:53 → C.3T 01-23 12:18
PROVIDERS: ADMIT Internal Medicine Nephrology; ATTEND Internal Medicine Nephrology
PROC: 02HV33Z Insertion of Infusion Device into Superior Vena Cava, Percutaneous Approach (ICD-10-PCS; principal; 2017-01-23)
DX: E11.621 Type 2 diabetes mellitus with foot ulcer (principal); L97.529 Non-pressure chronic ulcer of other part of left foot with unspecified severity; E11.40 Type 2 diabetes mellitus with diabetic neuropathy, unspecified; L03.116 Cellulitis of left lower limb; I10 Essential (primary) hypertension; B96.20 Unspecified Escherichia coli [E. coli] as the cause of diseases classified elsewhere; S82.042A Displaced comminuted fracture of left patella, initial encounter for closed fracture; F32.9 Major depressive disorder, single episode, unspecified; E11.628 Type 2 diabetes mellitus with other skin complications; E78.00 Pure hypercholesterolemia, unspecified; Z79.4 Long term (current) use of insulin; E78.5 Hyperlipidemia, unspecified; W18.39XA Other fall on same level, initial encounter; M25.462 Effusion, left knee

== ENCOUNTER 2017-07-09 09:36 | Emergency (ER) | payer OTHER ==
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
--- NOTE | 2017-07-09 11:42 | CT ---
PROCEDURE: CT scan brain dated 07/09/2017. . HISTORY: Head injury; rule out bleed. COMPARISON: Comparison made with prior CT scan brain 10/24/2015. TECHNIQUE: Axial computed tomography images were obtained through the head/brain without intravenous contrast. Radiation dose: Total exam DLP = 1002.83 mGy-cm. This CT exam was performed using one or more of the following dose reduction techniques: Automated exposure control, adjustment of the mA and/or kV according to patient size, and/or use of iterative reconstruction technique. FINDINGS: HEMORRHAGE: No acute parenchymal, subarachnoid nor extra-axial hemorrhage. BRAIN: Suspect minimal chronic periventricular white matter ischemic changes. VENTRICLES: No obstructive hydrocephalus. CALVARIUM: There are no acute calvarial fractures. PARANASAL SINUSES: Minimal mucosal thickening seen within several ethmoid air cells extending superiorly into the inferior margin of the frontal sinus MASTOID AIR CELLS: Unremarkable as visualized. No inflammatory changes. OTHER FINDINGS: None. IMPRESSION: No acute intracranial hemorrhage. Suspect minimal chronic periventricular white matter ischemic changes.
[2017-07-09 13:31] VITALS: BP 173/79; PULSE 87; RESP 18; TEMP 98.6
[2017-07-10 18:24] VITALS: O2SAT 99
== END 2017-07-09 13:34 | disposition home or self-care (01) ==
LOC: C.ER 09:36
DX: S09.90XA Unspecified injury of head, initial encounter (principal); W05.0XXA Fall from non-moving wheelchair, initial encounter

== ENCOUNTER 2017-08-14 15:08 | Inpatient (IN) | payer MEDICAID, OTHER ==
[2017-08-14 16:32] LABS: BASO # 0.1 K/uL (0.0-0.2); BASO % 0.8 % (0.0-2.0); EOS # 0.2 K/uL (0.0-0.7); LYMPH # 2.3 K/uL (1.0-4.3); LYMPH % 34.8 % (20.0-40.0); MEAN CELL VOLUME 86.7 fL (81.0-99.0); MEAN CORPUSCULAR HEMOGLOBIN 30.1 pg (27.0-31.0); MEAN CORPUSCULAR HGB CONC 34.7 g/dL (33.0-37.0); MEAN PLATELET VOLUME 6.9 fL (7.2-11.7); MONO # 0.5 K/uL (0.0-0.8); NEUT # 3.6 K/uL (1.8-7.0); NEUT % 54.4 % (50.0-75.0); NRBC % 0.1 % (0.0-2.0); RBC 3.95 Mil/uL (3.80-5.20); RED CELL DISTRIBUTION WIDTH 13.3 % (11.5-14.5); WHITE BLOOD COUNT 6.6 K/uL (4.8-10.8)
[2017-08-14 16:35] LABS: HEMOGLOBIN 11.9 g/dL (11.0-16.0)
[2017-08-14 16:36] LABS: SQUAMOUS EPITHIAL 1 /hpf (0-5); URINE BILIRUBIN NEGATIVE (NEGATIVE); URINE BLOOD NEGATIVE (NEGATIVE); URINE CLARITY Clear (Clear); URINE COLOR Yellow (YELLOW); URINE GLUCOSE (UA) NORMAL (Normal); URINE LEUKOCYTE ESTERASE NEG Leu/uL (Negative); URINE NITRATE NEGATIVE (NEGATIVE); URINE PROTEIN NEGATIVE (NEGATIVE); URINE UROBILINOGEN NORMAL mg/dL (0.2-1.0)
[2017-08-14 16:47] LABS: ALB/GLOB RATIO 1.1 (1.0-2.1); ALBUMIN 4.4 g/dL (3.5-5.0); ALT/SGPT 25 U/L (9-52); AST/SGOT 22 U/L (14-36); BLOOD UREA NITROGEN 27 mg/dL (7-17); CALCIUM 9.3 mg/dl (8.6-10.4); GFR AFRICAN-AMERICAN > 60; GFR NON-AFRICAN AMERICAN 57
[2017-08-14 17:36] LABS: BARBITURATES, UR NEGATIVE (NEGATIVE); BENZODIAZEPINES, UR NEGATIVE (NEGATIVE); OPIATES, UR NEGATIVE (NEGATIVE); PHENCYCLIDINE, UR NEGATIVE (NEGATIVE)
--- NOTE | 2017-08-14 18:09 | C.PDOC ---
History Of Present Illness 61 year old female with PMHx of DM is brought to the ED by EMS for suicidal ideation. Patient reports she has been having a tough time at home for a while and today thing became worse. Patient states she has been thinking about killing herself for the past 3 months but today she felt worse than before. Patient denies any auditory hallucinations, homicidal ideations, SOB, CP, nausea , vomit, fever, diarrhea, abdominal pain. Time Seen by Provider: 08/14/17 16:03 Chief Complaint (Nursing): Psychiatric Evaluation History Per: Patient History/Exam Limitations: no limitations Onset/Duration Of Symptoms: Days Current Symptoms Are (Timing): Still Present Modifying Factor(s): None Severity: Mild Associated Symptoms: Depression, Suicidal Thoughts. denies: Suicidal Plan Involuntary Hold By: None Recent travel outside of the [place]: No Additional History Per: Patient Past Medical History Reviewed: Historical Data, Nursing Documentation, Vital Signs Vital Signs: Last Vital Signs Temp 98.8 F 08/14/17 15:22 Pulse 96 H 08/14/17 15:22 Resp 18 08/14/17 15:22 BP 161/82 H 08/14/17 15:22 Pulse Ox 99 08/14/17 18:51 - Medical History PMH: Anxiety, Arthritis (L KNEE), Depression, Diabetes (Type 2), HTN, Hypercholesterolemia Denies: Hepatitis, HIV, Chronic Kidney Disease, Seizures, Sexually Transmitted Disease Surgical History: No Surg Hx - [facility] Procedures INSERTION OF INFUSION DEV INTO SUP VENA CAVA, PERC APPROACH (01/18/17) OTH NONOPER CARD AND VASC MEASURE (01/07/14) OTHER SKIN & SUBQ I D (09/29/13) Family History: States: Unknown Family Hx - Social History Hx Tobacco Use: No Hx Alcohol Use: No Hx Substance Use: No - Immunization History Hx Tetanus Toxoid Vaccination: No Hx Influenza Vaccination: No Hx Pneumococcal Vaccination: No Review Of Systems Constitutional: Negative for: Fever, Chills Cardiovascular: Negative for: Chest Pain, Palpitations Respiratory: Negative for: Cough, Shortness of Breath Gastrointestinal: Negative for: Nausea, Vomiting, Abdominal Pain Skin: Negative for: Rash Neurological: Negative for: Weakness, Numbness Psych: Positive for: Depression, Suicidal ideation Physical Exam - Physical Exam Appears: Non-toxic, No Acute Distress Skin: Normal Color, Warm, Dry Head: Atraumatic, Normacephalic Eye(s): bilateral: Normal Inspection Nose: No Discharge, No Deformity Oral Mucosa: Dry (mildly) Teeth: Edentulous Neck: Supple Chest: Symmetrical, No Tenderness Cardiovascular: Rhythm Regular, No Murmur Respiratory: Normal Breath Sounds, No Rales, No Rhonchi, No Wheezing Gastrointestinal/Abdominal: Soft, No Tenderness, No Guarding, No Rebound Extremity: Normal ROM, No Tenderness, No Swelling Neurological/Psych: Oriented x3, Normal Speech, Normal Cognition Gait: Steady ED Course And Treatment - Laboratory Results Result Diagrams: 08/14/17 16:27 08/14/17 16:27 O2 Sat by Pulse Oximetry: 99 (On RA) Pulse Ox Interpretation: Normal Medical Decision Making Medical Decision Making: Impression: Suicidal ideation Plan: * Labs * UA * 1:1 obs * crisis evaluation 630 pm pt accepted for admission by Dr Roach for depression; pt has mild dehydration. made aware and po hydration encouraged. pt is medically stable for psychiatric evaluation. Disposition Discussed With Dr.: Kathy Roach Doctor Will See Patient In The: Hospital - Disposition Disposition: HOSPITALIZED Disposition Time: 18:38 Condition: STABLE Forms: [facility] (Montserratian) - Clinical Impression Clinical Impression: Major depressive disorder - PA / EXCHANGE CLERK / Resident Statement MD/DO has reviewed & agrees with the documentation as recorded. - Scribe Statement The provider has reviewed the documentation as recorded by the Scribe Obie Delgadillo All medical record entries made by the Scribe were at my direction and personally dictated by me. I have reviewed the chart and agree that the record accurately reflects my personal performance of the history, physical exam, medical decision making, and the department course for this patient. I have also personally directed, reviewed, and agree with the discharge instructions and disposition.
--- NOTE | 2017-08-14 20:25 | PCM.BM ---
<Michaelle Centeno - Last Filed: 08/14/17 20:21> Treatment Plan Problems - Problems identified on initial assessmt Depression Date Initiated: 08/14/17 Time Initiated: : Assessment reference: NA Status: Active Suicidal Ideation Date Initiated: 08/14/17 Time Initiated: 20: Assessment reference: NA Status: Active Treatment assets and liabiliti Patient Assests: cooperative, ADL independent, negotiates basic needs, cognitively intact Patient Liabilities: medical problems (DM, HTN) - Milieu Protocol Maintain good personal hygiene: daily Encourage regular showers, daily Remind patient to perform daily oral care, other Assist patient to perform ADL's (Self) Conduct patient checks and document Observation sheet: Q15 minutes (For safety) Maintain personal safety: every shift Educate patient to report safety concerns to staff, every shift Monitor environment for contraband/sharps Medication safety: Monitor for expected outcome, potential side effects: every shift, Assess barriers to learning: every shift, Assess readiness for medication education: every shift <Uriel Marley - Last Filed: 08/16/17 10:49> - Diagnosis (1) Major depressive disorder Status: Acute Interventions: 08/16/17 10:49 * Assess/adjust medications daily and /or as needed * See patient on an individual basis 7x/week to assess symptoms of depression * Monitor for side effects & effectiveness of medications * <Enma Christensen - Last Filed: 08/16/17 10:53> Family Contact Family involvement: Family/SO is involved Family contact: Patient declines to allow family contact at present - Goals for Treatment Patient goals for treatment: "I need to go home soon." Discharge/Continuing Care - Education Needs Education Needs: Patient Medication, Patient Coping Skills - Discharge Discharge Criteria: Tolerates medication w/o severe side effects, Free of Suicidal thoughts Discharge to:: Home, With Family - Treatment Team Participation Discussed with Family/SO: No Was Patient/Family/SO present at Treatment Team Meeting: Yes
[2017-08-15 06:09] VITALS: O2SAT 98
[2017-08-15] MEDS: Pantoprazole 20 mg EC Tab PO SCH (09:51)
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
[2017-08-16] MEDS: Pantoprazole 20 mg EC Tab PO SCH (10:03)
--- NOTE | 2017-08-16 10:50 | PCM.PYCHPN ---
Psychiatric Progress Note - Psychiatric Progress Note Patient seen today, length of contact: 15 min Patient Chief Complaint: I am feeling depressed and I cant take it anymore.' Problems Identified/Issues Discussed: Patient seen and evaluated, chart reviewed and discussed with the nurse. Today patient reports some improvement in her irritability, anxiety and agitation. She still reports depressed mood and feelings of hopelessness. She is still crying at times and she remained isolated and withdrawn. She is taking medications and denies any side effects. Symptoms are improving but she needs more time for stabilization. Supportive therapy and psychoeducation were given. Medication Change: Yes (Increase Zoloft, start Seroquel) Medical Record Reviewed: Yes Mental Status Examination - Cognitive Function Orientation: Person, Place, Situation, Time Memory: Intact Attention: WNL Concentration: Poor Association: WNL Fund of Knowledge: Poor - Mood Mood: Depressed, Anxious - Affect Affect: Constricted, Depressed - Speech Speech: Soft - Formal Thought Process Formal Thought Process: Hallucinations, Delusions, Paranoia, Loosening of associations, Circumstantial - Suicidal Ideation Suicidal Ideation: No - Homicidal Ideation Homicidal Ideation: No Goal/Treatment Plan - Goal/Treatment Plan Need for Continued Stay: Discharge may exacerbated symptoms, Severe functional impairment Progress Toward Problem(s) and Goals/Treatment Plan: Major depressive disorder recurrent severe with psychotic features R/O Schizoaffective disorder depressive type. -CBT -Psychoeducation -Supportive therapy, group therapy, individual therapy -Sertraline 100 mg PO Daily -Trazodone 50 mg by mouth daily at bedtime -Seroquel 50 milligram by mouth daily at bedtime DM -Continue prescribed medications -Monitor signs and symptoms HTN -Continue prescribed medications -Monitor signs and symptoms - Smoking Cessation Smoking Cessation Initiated: No
[2017-08-17] MEDS ORDERED: Influenza Vaccine 60 mcg/0.5 mL SYR (4YR UP) IM ONE (10:00)
[2017-08-17] MEDS ORDERED: Pneumococcal 23-Valent Vaccine IM ONE (10:00)
[2017-08-17] MEDS: Pantoprazole 20 mg EC Tab PO SCH (10:05)
--- NOTE | 2017-08-17 14:20 | PCM.PYCHPN ---
Psychiatric Progress Note - Psychiatric Progress Note Patient seen today, length of contact: 15 min Patient Chief Complaint: "I want to go home, there's nothing to do here."' Problems Identified/Issues Discussed: Patient seen and evaluated, chart reviewed and discussed with the nurse. Today patient reports some improvement in her irritability, anxiety and agitation. She reports some improvement in her depressed mood, however, she remains isolated and withdrawn. She is taking medications and denies any side effects. Pt states she wakes up in the middle of the night regularly, and wants to go home by tomorrow because "there's nothing for me to do here, I cant hear the tv. " Pt states she lays in bed and her thoughts are depressing "but at least I could do the same thing at home." Symptoms are improving but she needs more time for stabilization. Supportive therapy and psychoeducation were given. Medication Change: Yes (Increase Zoloft, start Seroquel) Medical Record Reviewed: Yes Mental Status Examination - Cognitive Function Orientation: Person, Place, Situation, Time Memory: Intact Attention: WNL Concentration: Poor Association: WNL Fund of Knowledge: Poor - Mood Mood: Depressed, Anxious - Affect Affect: Constricted, Depressed - Speech Speech: Soft - Formal Thought Process Formal Thought Process: Loosening of associations - Suicidal Ideation Suicidal Ideation: No - Homicidal Ideation Homicidal Ideation: No Goal/Treatment Plan - Goal/Treatment Plan Need for Continued Stay: Discharge may exacerbated symptoms, Severe functional impairment Progress Toward Problem(s) and Goals/Treatment Plan: Major depressive disorder recurrent severe with psychotic features R/O Schizoaffective disorder depressive type. -CBT -Psychoeducation -Supportive therapy, group therapy, individual therapy -Sertraline 100 mg PO Daily -Trazodone 50 mg by mouth daily at bedtime -Seroquel 50 milligram by mouth daily at bedtime DM -Continue prescribed medications -Monitor signs and symptoms HTN -Continue prescribed medications -Monitor signs and symptoms - Smoking Cessation Smoking Cessation Initiated: No
[2017-08-18 06:32] VITALS: BP 115/71; PULSE 78; RESP 20; TEMP 97.5
[2017-08-18] MEDS: Pantoprazole 20 mg EC Tab PO SCH (09:55)
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
== END 2017-08-18 13:42 | disposition home or self-care (01) | DRG 430 ==
LOC: C.ER 15:08 → C.5E 18:38
PROVIDERS: ADMIT Psychiatry & Neurology Psychiatry; ATTEND Psychiatry & Neurology Psychiatry
PROC: GZHZZZZ Group Psychotherapy (ICD-10-PCS; principal; 2017-08-14)
PROC: GZ58ZZZ Individual Psychotherapy, Cognitive-Behavioral (ICD-10-PCS; 2017-08-14)
PROC: GZ56ZZZ Individual Psychotherapy, Supportive (ICD-10-PCS; 2017-08-14)
DX: F33.3 Major depressive disorder, recurrent, severe with psychotic symptoms (principal); R45.851 Suicidal ideations; E11.9 Type 2 diabetes mellitus without complications; E86.0 Dehydration; F41.9 Anxiety disorder, unspecified; M17.12 Unilateral primary osteoarthritis, left knee; I10 Essential (primary) hypertension; E78.00 Pure hypercholesterolemia, unspecified; G47.00 Insomnia, unspecified

== ENCOUNTER 2017-08-18 13:22 | Emergency (ER) | payer MEDICAID ==
[2017-08-18 13:28] VITALS: BMI 28.8
[2017-08-18 13:32] VITALS: O2SAT 98
[2017-08-18] MEDS ORDERED: Sodium Chloride 0.9% 1,000 ML IV ONE (14:19)
--- NOTE | 2017-08-18 14:35 | C.PDOC ---
History Of Present Illness 61 y/o female presents, whose PMHx includes DM, HTN, Anxiety, Depression and Hyperlipidemia, presents to the ED for evaluation of lightheadedness which began earlier today. Patient was discharged earlier today after undergoing psychiatric evaluation. As she was walking out of the hospital, patient states she began feeling lightheaded, weak and felt like she was gong to fall. Patient states her blood pressure and blood sugar levels were low during her hospital stay. Patient denies fever, chills, headache, chest pain, shortness of breath, abdominal pain, nausea, vomiting, diarrhea, dysuria, urinary frequency. Time Seen by Provider: 08/18/17 13:39 Chief Complaint (Nursing): Dizziness/Lightheaded History Per: Patient History/Exam Limitations: no limitations Onset/Duration Of Symptoms: Hrs Current Symptoms Are (Timing): Still Present Associated Symptoms Preceding Syncopal Episode: No Predromal Symptoms (Sudden Onset) Past Medical History Reviewed: Historical Data, Nursing Documentation, Vital Signs Vital Signs: Last Vital Signs Temp 97.7 F 08/18/17 13:28 Pulse 78 08/18/17 13:28 Resp 16 08/18/17 13:28 BP 99/61 L 08/18/17 13:28 Pulse Ox 98 08/18/17 14:56 - Medical History PMH: Anxiety, Arthritis (L KNEE), Depression, Diabetes (Type 2), HTN, Hypercholesterolemia Denies: Hepatitis, HIV, Chronic Kidney Disease, Seizures, Sexually Transmitted Disease - [facility] Procedures INSERTION OF INFUSION DEV INTO SUP VENA CAVA, PERC APPROACH (01/18/17) OTH NONOPER CARD AND VASC MEASURE (01/07/14) OTHER SKIN & SUBQ I D (09/29/13) Family History: States: Unknown Family Hx - Social History Hx Tobacco Use: No Hx Alcohol Use: No Hx Substance Use: No - Immunization History Hx Tetanus Toxoid Vaccination: No Hx Influenza Vaccination: No Hx Pneumococcal Vaccination: No Review Of Systems Constitutional: Positive for: Weakness. Negative for: Fever, Chills Cardiovascular: Negative for: Chest Pain Respiratory: Negative for: Cough, Shortness of Breath Gastrointestinal: Negative for: Abdominal Pain Genitourinary: Negative for: Dysuria, Frequency, Hematuria Neurological: Positive for: Other (lightheadedness ). Negative for: Headache Physical Exam - Physical Exam Appears: Non-toxic, No Acute Distress, Other (sitting in chair with eyes closed ) Skin: Normal Color, Warm, Dry Head: Atraumatic, Normacephalic Eye(s): bilateral: Normal Inspection, Other (nystagmus ) Oral Mucosa: Moist Neck: Supple Chest: Symmetrical, No Deformity, No Tenderness Cardiovascular: Rhythm Regular, No Murmur Respiratory: Normal Breath Sounds, No Rales, No Rhonchi, No Wheezing Extremity: Normal ROM, Capillary Refill (less than 2 seconds) Neurological/Psych: Oriented x3, Normal Speech, Normal Cognition Gait: Steady ED Course And Treatment - Laboratory Results Result Diagrams: 08/18/17 15:10 08/18/17 15:10 Lab Interpretation: Normal (ua neg.) ECG: Interpreted By Me O2 Sat by Pulse Oximetry: 98 (on RA) Pulse Ox Interpretation: Normal - Radiology CXR: Interpreted by Me CXR Interpretation: Yes: No Acute Disease Progress Note: Bloodwork, urinalysis, CXR, EKG, Influenza A/B swab ordered. Antivert PO and IV Fluids administered. Reevaluation Time: 16:19 Reassessment Condition: Improved (stable gait wtih her cane/walker as baseline.) Medical Decision Making Medical Decision Making: ? somnolent from Seroquel first dose last night, not further prescribed as opt. new Zoloft well tolerated. Disposition Doctor Will See Patient In The: Office Counseled Patient/Family Regarding: Studies Performed, Diagnosis - Disposition Disposition: HOME/ ROUTINE Disposition Time: 16:20 Condition: GOOD Forms: [facility] (Khmer) - Clinical Impression Clinical Impression: Vertigo, Adverse drug experience - Scribe Statement The provider has reviewed the documentation as recorded by the Scribe (Shasta Mercado) Provider Attestation: All medical record entries made by the Scribe were at my direction and personally dictated by me. I have reviewed the chart and agree that the record accurately reflects my personal performance of the history, physical exam, medical decision making, and the department course for this patient. I have also personally directed, reviewed, and agree with the discharge instructions and disposition.
--- NOTE | 2017-08-18 14:49 | RAD ---
HISTORY: SOB COMPARISON: Chest x-ray performed 03/07/17 TECHNIQUE: Chest, one view. FINDINGS: LUNGS: No focal consolidation. Please note that chest x-ray has limited sensitivity for the detection of pulmonary masses. PLEURA: No significant pleural effusion identified. No definite pneumothorax . CARDIOVASCULAR: Heart size appears within normal limits. OSSEOUS STRUCTURES: No acute osseous abnormality identified. VISUALIZED UPPER ABDOMEN: Mild elevation of the right hemidiaphragm. OTHER FINDINGS: None. IMPRESSION: No acute findings identified.
[2017-08-18] MEDS ORDERED: Sodium Chloride 0.9% 1,000 ML ONE (15:10)
[2017-08-18 15:16] LABS: BASO # 0.1 K/uL (0.0-0.2); BASO % 0.8 % (0.0-2.0); EOS # 0.2 K/uL (0.0-0.7); EOS % 2.5 % (0.0-4.0); HEMOGLOBIN 11.7 g/dL (11.0-16.0); LYMPH # 1.8 K/uL (1.0-4.3); LYMPH % 23.1 % (20.0-40.0); MEAN CELL VOLUME 86.8 fL (81.0-99.0); MEAN CORPUSCULAR HEMOGLOBIN 29.4 pg (27.0-31.0); MEAN CORPUSCULAR HGB CONC 33.9 g/dL (33.0-37.0); MONO # 0.4 K/uL (0.0-0.8); MONO % 4.6 % (0.0-10.0); NEUT # 5.4 K/uL (1.8-7.0); RED CELL DISTRIBUTION WIDTH 13.7 % (11.5-14.5); WHITE BLOOD COUNT 7.8 K/uL (4.8-10.8)
[2017-08-18 15:22] LABS: HCG,QUALITATIVE URINE NEGATIVE (NEGATIVE)
[2017-08-18 15:23] LABS: SQUAMOUS EPITHIAL 1 /hpf (0-5); URINE BILIRUBIN NEGATIVE (NEGATIVE); URINE BLOOD NEGATIVE (NEGATIVE); URINE CLARITY Clear (Clear); URINE COLOR Yellow (YELLOW); URINE GLUCOSE (UA) NORMAL (Normal); URINE LEUKOCYTE ESTERASE TRACE Leu/uL (Negative); URINE NITRATE NEGATIVE (NEGATIVE); URINE PROTEIN NEGATIVE (NEGATIVE); URINE UROBILINOGEN NORMAL mg/dL (0.2-1.0)
[2017-08-18 15:40] LABS: BARBITURATES, UR NEGATIVE (NEGATIVE); OPIATES, UR NEGATIVE (NEGATIVE); PHENCYCLIDINE, UR NEGATIVE (NEGATIVE)
[2017-08-18 15:41] LABS: ALB/GLOB RATIO 1.1 (1.0-2.1); ALBUMIN 4.2 g/dL (3.5-5.0); ALT/SGPT 21 U/L (9-52); AST/SGOT 21 U/L (14-36); BLOOD UREA NITROGEN 33 mg/dL (7-17); GFR AFRICAN-AMERICAN > 60; GFR NON-AFRICAN AMERICAN 51
[2017-08-18 15:43] LABS: BENZODIAZEPINES, UR NEGATIVE (NEGATIVE)
[2017-08-18 16:52] VITALS: BP 127/75; PULSE 83; RESP 20; TEMP 98.3
== END 2017-08-18 16:52 | disposition home or self-care (01) ==
LOC: C.ER 13:22
DX: R42 Dizziness and giddiness (principal); T50.905A Adverse effect of unspecified drugs, medicaments and biological substances, initial encounter; E11.9 Type 2 diabetes mellitus without complications; E78.00 Pure hypercholesterolemia, unspecified; I10 Essential (primary) hypertension
CPT/HCPCS: 71045; 80053; 80324; 80345; 80346; 80349; 80353; 80358; 80361; 81001; 82948; 83992; 84484; 84703; 85025; 87804; 96360; 99285; J7040

== ENCOUNTER 2017-10-12 20:42 | Emergency (ER) | payer OTHER ==
[2017-10-12 20:43] VITALS: BMI 28.8
[2017-10-12 21:49] LABS: BASO % 0.6 % (0.0-2.0); EOS # 0.3 K/uL (0.0-0.7); EOS % 4.5 % (0.0-4.0); HEMOGLOBIN 11.6 g/dL (11.0-16.0); LYMPH # 2.6 K/uL (1.0-4.3); LYMPH % 35.1 % (20.0-40.0); MEAN CELL VOLUME 87.8 fL (81.0-99.0); MEAN CORPUSCULAR HEMOGLOBIN 30.6 pg (27.0-31.0); MEAN CORPUSCULAR HGB CONC 34.8 g/dL (33.0-37.0); MEAN PLATELET VOLUME 6.4 fL (7.2-11.7); MONO # 0.6 K/uL (0.0-0.8); MONO % 7.6 % (0.0-10.0); NEUT # 3.9 K/uL (1.8-7.0); NEUT % 52.2 % (50.0-75.0); RBC 3.8 Mil/uL (3.80-5.20); RED CELL DISTRIBUTION WIDTH 14.6 % (11.5-14.5); WHITE BLOOD COUNT 7.4 K/uL (4.8-10.8)
[2017-10-12 22:01] LABS: ALB/GLOB RATIO 1.2 (1.0-2.1); ALBUMIN 4.3 g/dL (3.5-5.0); ALT/SGPT 17 U/L (9-52); AST/SGOT 22 U/L (14-36); BLOOD UREA NITROGEN 18 mg/dL (7-17); CALCIUM 8.3 mg/dl (8.6-10.4); GFR AFRICAN-AMERICAN > 60; GFR NON-AFRICAN AMERICAN > 60
[2017-10-12 22:22] LABS: SQUAMOUS EPITHIAL 2 /hpf (0-5); URINE BILIRUBIN NEGATIVE (NEGATIVE); URINE BLOOD NEGATIVE (NEGATIVE); URINE CLARITY Hazy (Clear); URINE COLOR Yellow (YELLOW); URINE GLUCOSE (UA) 1+ mg/dL (Normal); URINE PROTEIN 2+ mg/dL (NEGATIVE); URINE UROBILINOGEN NORMAL mg/dL (0.2-1.0)
[2017-10-12 22:25] LABS: URINE LEUKOCYTE ESTERASE 1+ Leu/uL (Negative)
[2017-10-12 22:33] LABS: BARBITURATES, UR NEGATIVE (NEGATIVE); BENZODIAZEPINES, UR NEGATIVE (NEGATIVE); OPIATES, UR NEGATIVE (NEGATIVE); PHENCYCLIDINE, UR NEGATIVE (NEGATIVE)
--- NOTE | 2017-10-12 22:50 | C.PDOC ---
Time Seen by Provider: 10/12/17 21:04 Chief Complaint (Nursing): Psychiatric Evaluation History Per: Patient Onset/Duration Of Symptoms: Days Current Symptoms Are (Timing): Still Present Suicide/Self Injury Attempted (Context): None Modifying Factor(s): None Severity: Moderate Associated Symptoms: Depression. denies: Suicidal Thoughts, Suicidal Plan Additional History Per: Prior Records Past Medical History Reviewed: Historical Data, Nursing Documentation, Vital Signs Vital Signs: Last Vital Signs Temp 98.6 F 10/12/17 20:52 Pulse 102 H 10/12/17 20:52 Resp 20 10/12/17 20:52 BP 205/80 H 10/12/17 20:52 Pulse Ox 100 10/12/17 20:52 - Medical History PMH: Anxiety, Arthritis (L KNEE), Depression, Diabetes (Type 2), HTN, Hypercholesterolemia - [facility] Procedures GROUP PSYCHOTHERAPY (08/14/17) INDIVIDUAL PSYCHOTHERAPY, COGNITIVE-BEHAVIORAL (08/14/17) INDIVIDUAL PSYCHOTHERAPY, SUPPORTIVE (08/14/17) INSERTION OF INFUSION DEV INTO SUP VENA CAVA, PERC APPROACH (01/18/17) OTH NONOPER CARD AND VASC MEASURE (01/07/14) OTHER SKIN & SUBQ I D (09/29/13) Family History: States: Unknown Family Hx - Social History Hx Tobacco Use: No Hx Alcohol Use: No Hx Substance Use: No - Immunization History Hx Tetanus Toxoid Vaccination: No Hx Influenza Vaccination: No Hx Pneumococcal Vaccination: No Review Of Systems Except As Marked, All Systems Reviewed And Found Negative. Constitutional: Negative for: Fever, Weakness Cardiovascular: Negative for: Chest Pain Respiratory: Negative for: Shortness of Breath Gastrointestinal: Negative for: Vomiting, Abdominal Pain Genitourinary: Negative for: Dysuria Musculoskeletal: Negative for: Neck Pain, Back Pain Skin: Negative for: Rash Neurological: Negative for: Weakness, Numbness, Headache Psych: Negative for: Psychosis Physical Exam - Physical Exam Appears: Non-toxic, No Acute Distress Skin: Normal Color, Warm, Dry, No Rash Head: Atraumatic, Normacephalic Eye(s): bilateral: PERRL, EOMI Neck: Normal ROM, Supple Cardiovascular: Rhythm Regular Respiratory: Normal Breath Sounds, No Accessory Muscle Use Gastrointestinal/Abdominal: Soft, No Tenderness Extremity: Normal ROM Neurological/Psych: Oriented x3, Normal Motor, Normal Sensation ED Course And Treatment - Laboratory Results Result Diagrams: 10/12/17 21:46 10/12/17 21:46 Lab Interpretation: No Acute Changes O2 Sat by Pulse Oximetry: 100 Pulse Ox Interpretation: Normal Progress Note: Pt was evaluated by the sort worker who d/w Dr. Marley. They psychiatrically cleared pt for dishcarge home and arranged for outpt f/up. Reassessment Condition: Improved Disposition Counseled Patient/Family Regarding: Studies Performed, Diagnosis, Need For Followup - Disposition Referrals: Ben Kenney MD [Staff Provider] - Disposition Time: 22:50 Condition: STABLE Additional Instructions: Follow up with your primary doctor and with outpatient mental health as instructed. Return to the ER if you develop suicidal or homicidal thoughts, worsening of symptoms or if you have any other concerns. Instructions: Depression, Adult (DC) - Clinical Impression Clinical Impression: Depression
[2017-10-12 23:07] VITALS: RESP 16; TEMP 98
[2017-10-12 23:22] VITALS: BP 138/68; PULSE 76; O2SAT 98
== END 2017-10-12 23:23 | disposition home or self-care (01) ==
LOC: C.ER 20:42
DX: F32.9 Major depressive disorder, single episode, unspecified (principal)

== ENCOUNTER 2017-12-23 12:59 | Emergency (ER) | payer OTHER ==
[2017-12-23 13:05] VITALS: BMI 29.2
[2017-12-23 13:06] VITALS: BP 130/74; PULSE 94; RESP 18; TEMP 99; O2SAT 99
== END 2017-12-23 13:16 | disposition left against medical advice (07) ==
LOC: C.ER 12:59
DX: Z02.89 Encounter for other administrative examinations (principal); M25.562 Pain in left knee

== ENCOUNTER 2018-01-02 14:31 | Observation (INO) | payer OTHER ==
[2018-01-02 14:31] VITALS: BMI 29.2
[2018-01-02] MEDS ORDERED: Sodium Chloride 0.9% 500 ML IV ONE ×2 (15:31→15:50)
[2018-01-02 15:54] LABS: BASO % 0.6 % (0.0-2.0); EOS # 0.2 K/uL (0.0-0.7); EOS % 2.3 % (0.0-4.0); HEMOGLOBIN 12.6 g/dL (11.0-16.0); LYMPH # 1.9 K/uL (1.0-4.3); MEAN CELL VOLUME 86.9 fL (81.0-99.0); MEAN CORPUSCULAR HEMOGLOBIN 31.2 pg (27.0-31.0); MEAN CORPUSCULAR HGB CONC 35.9 g/dL (33.0-37.0); MEAN PLATELET VOLUME 6.9 fL (7.2-11.7); MONO # 0.5 K/uL (0.0-0.8); MONO % 6.2 % (0.0-10.0); NEUT # 5.7 K/uL (1.8-7.0); NEUT % 67.9 % (50.0-75.0); NRBC % 0.1 % (0.0-2.0); RBC 4.03 Mil/uL (3.80-5.20); RED CELL DISTRIBUTION WIDTH 13.4 % (11.5-14.5); WHITE BLOOD COUNT 8.4 K/uL (4.8-10.8)
[2018-01-02 16:11] LABS: ALB/GLOB RATIO 1.3 (1.0-2.1); ALBUMIN 4.7 g/dL (3.5-5.0); ALT/SGPT 28 U/L (9-52); AST/SGOT 29 U/L (14-36); BLOOD UREA NITROGEN 25 mg/dL (7-17); CALCIUM 9.6 mg/dl (8.6-10.4); GFR AFRICAN-AMERICAN > 60; GFR NON-AFRICAN AMERICAN > 60
--- NOTE | 2018-01-02 16:34 | RAD ---
PROCEDURE: CHEST RADIOGRAPH, 1 VIEW HISTORY: Dizzy COMPARISON: 08/18/2017. FINDINGS: LUNGS: Clear. PLEURA: No pneumothorax or pleural fluid seen. CARDIOVASCULAR: No radiographic findings to suggest acute or significant cardiovascular disease. OSSEOUS STRUCTURES: No significant abnormalities. VISUALIZED UPPER ABDOMEN: Normal. OTHER FINDINGS: None. IMPRESSION: No active disease. No acute/significant interval changes.
--- NOTE | 2018-01-02 16:36 | C.PDOC ---
History Of Present Illness Pt c/o lightheadedness to the point where she feels that she is almost going to pass out. Associated with nausea. Time Seen by Provider: 01/02/18 15:18 Chief Complaint (Nursing): Dizziness/Lightheaded History Per: Patient Onset/Duration Of Symptoms: Hrs (this afternoon) Current Symptoms Are (Timing): Still Present Associated Symptoms Preceding Syncopal Episode: Lightheadedness Possible Causative Factor(s): Lightheaded W/Exertion Fall Associated With With Symptoms: No Severity: Moderate Additional History Per: Prior Records - Symptoms Of CVA Recent Head Trauma: No Past Medical History Reviewed: Historical Data, Nursing Documentation, Vital Signs Vital Signs: Last Vital Signs Temp 97.6 F 01/02/18 14:45 Pulse 75 01/02/18 14:45 Resp 20 01/02/18 14:45 BP 197/100 H 01/02/18 14:45 Pulse Ox 100 01/02/18 14:45 - Medical History PMH: Anxiety, Arthritis (L KNEE), Depression, Diabetes (Type 2), HTN, Hypercholesterolemia - [facility] Procedures GROUP PSYCHOTHERAPY (08/14/17) INDIVIDUAL PSYCHOTHERAPY, COGNITIVE-BEHAVIORAL (08/14/17) INDIVIDUAL PSYCHOTHERAPY, SUPPORTIVE (08/14/17) INSERTION OF INFUSION DEV INTO SUP VENA CAVA, PERC APPROACH (01/18/17) OTH NONOPER CARD AND VASC MEASURE (01/07/14) OTHER SKIN & SUBQ I D (09/29/13) Family History: States: Unknown Family Hx - Social History Hx Tobacco Use: No Hx Alcohol Use: No Hx Substance Use: No - Immunization History Hx Tetanus Toxoid Vaccination: No Hx Influenza Vaccination: No Hx Pneumococcal Vaccination: No Review Of Systems Except As Marked, All Systems Reviewed And Found Negative. Constitutional: Positive for: Malaise. Negative for: Fever Cardiovascular: Positive for: Light Headedness. Negative for: Chest Pain Respiratory: Negative for: Shortness of Breath Gastrointestinal: Positive for: Nausea. Negative for: Vomiting, Abdominal Pain , Diarrhea Musculoskeletal: Negative for: Neck Pain Skin: Negative for: Rash Neurological: Negative for: Weakness, Numbness Physical Exam - Physical Exam Appears: Non-toxic, No Acute Distress Skin: Normal Color, Warm, Dry Head: Atraumatic, Normacephalic Eye(s): bilateral: PERRL, EOMI Neck: Normal ROM, Supple Cardiovascular: Rhythm Regular Respiratory: Normal Breath Sounds, No Accessory Muscle Use Gastrointestinal/Abdominal: Soft, No Tenderness Extremity: Normal ROM, No Pedal Edema, No Calf Tenderness Neurological/Psych: Oriented x3, Normal Motor, Normal Sensation ED Course And Treatment - Laboratory Results Result Diagrams: 01/02/18 15:49 01/02/18 15:49 ECG: Interpreted By Me, Viewed By Me ECG Rhythm: Sinus Rhythm, ST/T Changes (T wave inversions in inferior and anterolateral leads), Nonspecific Changes ECG Interpretation: Abnormal Interpretation Of ECG: Changed from prior EKG. Rate From EC O2 Sat by Pulse Oximetry: 100 Pulse Ox Interpretation: Normal - Radiology CXR: Interpreted by Me, Viewed By Me CXR Interpretation: Yes: No Acute Disease. No: Cardiomegaly Progress - Interventions Interventions:: Observation, Intravenous fluid - Medications Administered Intravenous: Antiemetic - Data Reviewed Data Reviewed: Lab, Diagnostic imaging, EKG, Old records - Patient Status Patient status: Mostly improved - Continuity of Care Discussed patient case with:: Patient, ED Nurse, Covering for PMD - Patient Plan Patient Plan: Admission, Telemetry Disposition Discussed With DrKell: Lanette Miles Comment: She accepted pt on hospitalist service and pt's PMD is Dr. Jabari Kenney. Doctor Will See Patient In The: Hospital Counseled Patient/Family Regarding: Studies Performed, Diagnosis - Disposition Disposition: HOSPITALIZED Disposition Time: 16:39 Condition: FAIR - Clinical Impression Clinical Impression: Near syncope, Abnormal electrocardiogram [ECG] [EKG]
--- NOTE | 2018-01-02 17:19 | CP.PCM.HP ---
<Ana Luisa LoydKell - Last Filed: 01/02/18 18:03> History of Present Illness - History of Present Illness History of Present Illness: CC: "I'm lightheaded and feel like I need to throw up." HPI: Patient is a 62 year old female with a past medical history of HTN, HLD, DM , depression, anxiety, and vertigo, who presents to the ED with complaints of lightheadedness and nausea that started this afternoon. The patient says she was on the bus with her son after shopping, when she suddenly felt lightheaded, slightly diaphoretic, and felt nauseas. She got off the bus and called 911. Patient says she takes all of her medications as prescribed, and took her medications this morning. She checked her glucose and blood pressure this morning, 150s and 117/77. The patient currently feels better, denies nausea and diaphoresis, however, feels "heavy headed, mainly on the right side". Patient denies chest pain, abdominal pain, dyspnea, vomiting, fevers, headaches, leg pain/swelling, vision changes, spinning room sensation, numbness, tingling, and weakness. PMD: Dr. Kenney PMHx: HTN, HLD, DM, depression, anxiety, and vertigo SurgHx: L knee surgery x2; c section 1995 FamHx: Mother- colon and breast cancer; sister-breast cancer SocHx: denies tobacco, alcohol, and drug use; lives with son, Manuel, in . allergies: anesthetics, ibuprofen, morphine, nsaids, codeine Medications: Metformin 1000mg PO BID, Glimepiride 2mg PO BID, Pravastatin 10mg PO daily, ASA 81mg PO daily, HCTZ 12.5mg PO daily Present on Admission - Present on Admission Any Indicators Present on Admission: No Review of Systems - Constitutional Constitutional: absent: Chills, Fever, Headache, Weakness - EENT Eyes: absent: Blurred Vision, Change in Vision Ears: Decreased Hearing (chronic;uses hearing aid in right ear). absent: Dizziness - Cardiovascular Cardiovascular: Lightheadedness. absent: Chest Pain, Dyspnea, Leg Edema, Palpitations, Rapid Heart Rate - Respiratory Respiratory: absent: Cough, Dyspnea - Gastrointestinal Gastrointestinal: Nausea. absent: Abdominal Pain, Constipation, Diarrhea, Vomiting - Genitourinary Genitourinary: absent: Dysuria - Musculoskeletal Musculoskeletal: Abnormal Gait (chronic- s/p knee surgery; walks with cane). absent: Muscle Weakness, Numbness, Tingling - Integumentary Integumentary: absent: Rash - Neurological Neurological: absent: Abnormal Speech, Dizziness, Numbness, Headaches, Sensory Deficit, Tingling, Weakness - Endocrine Endocrine: absent: Palpitations Past Patient History - Infectious Disease Hx of Infectious Diseases: None - Past Medical History & Family History Past Medical History?: Yes - Past Social History Smoking Status: Former Smoker - CARDIAC Hx Hypercholesterolemia: Yes Hx Hypertension: Yes - PULMONARY Hx Tuberculosis: No - NEUROLOGICAL Hx Neurological Disorder: Yes Hx Vertigo: Yes - HEENT Hx HEENT Problems: No - ENDOCRINE/METABOLIC Hx Endocrine Disorders: Yes Hx Diabetes Mellitus Type 2: Yes - HEMATOLOGICAL/ONCOLOGICAL Hx Cancer: No - INTEGUMENTARY Hx Dermatological Problems: Yes - MUSCULOSKELETAL/RHEUMATOLOGICAL Hx Arthritis: Yes (L KNEE) - GASTROINTESTINAL Hx Gastrointestinal Disorders: No - GENITOURINARY/GYNECOLOGICAL Hx Genitourinary Disorders: No - PSYCHIATRIC Hx Anxiety: Yes Hx Depression: Yes Hx Substance Use: No - SURGICAL HISTORY Hx Surgeries: Yes Hx Section: Yes Hx Musculoskeletal Surgery: Yes (Left knee surgery) - ANESTHESIA Hx Anesthesia: Yes Hx Anesthesia Reactions: Yes Hx Malignant Hyperthermia: No Meds Allergies/Adverse Reactions: Allergies Allergy/AdvReac Type Severity Reaction Status Date / Time Anesthetics - Amide Type Allergy Severe Verified 12/23/17 13:04 ibuprofen [From Motrin] Allergy Severe SWELLING Verified 12/23/17 13:04 morphine Allergy Severe ANAPHYLAXIS Verified 12/23/17 13:04 NSAIDS (Non-Steroidal Allergy Severe SWELLING Verified 12/23/17 13:04 Anti-Inflamma codeine Allergy Intermediate Verified 12/23/17 13:04 Physical Exam - Constitutional Appears: No Acute Distress - Head Exam Head Exam: ATRAUMATIC, NORMAL INSPECTION - Eye Exam Eye Exam: EOMI, Normal appearance, PERRL - ENT Exam ENT Exam: Mucous Membranes Moist Additional comments: no teeth, no dentures - Respiratory Exam Respiratory Exam: Clear to Auscultation Bilateral, NORMAL BREATHING PATTERN. absent: Rales, Rhonchi, Wheezes, Respiratory Distress - Cardiovascular Exam Cardiovascular Exam: REGULAR RHYTHM, +S1, +S2. absent: Bradycardia, Tachycardia - GI/Abdominal Exam GI & Abdominal Exam: Normal Bowel Sounds, Soft. absent: Distended, Firm, Guarding, Tenderness - Extremities Exam Extremities exam: Positive for: full ROM, normal inspection, pedal pulses present. Negative for: pedal edema, tenderness - Neurological Exam Neurological exam: Alert, CN II-XII Intact, Oriented x3 Additional comments: UE/LE bilaterally- 5/5 strength, full ROM, sensation intact; normal finger to nose, normal heel to arredondo; CN2-12intact. Asymmetrical smile (droop on the right side of mouth-patient states she has had that for awhile) - Psychiatric Exam Psychiatric exam: Normal Affect, Normal Mood - Skin Skin Exam: Dry, Intact, Normal Color, Warm Additional comments: well healed scar on left knee s/p surgery Results - Vital Signs Recent Vital Signs: Last Vital Signs Temp 97.6 F 01/02/18 17:02 Pulse 80 01/02/18 16:29 Resp 16 01/02/18 16:29 BP 154/77 H 01/02/18 16:29 Pulse Ox 100 01/02/18 16:39 - Labs Result Diagrams: 01/02/18 15:49 01/02/18 15:49 Labs: Laboratory Results - last 24 hr 01/02/18 01/02/18 01/02/18 14:42 15:49 15:49 WBC 8.4 RBC 4.03 Hgb 12.6 Hct 35.0 MCV 86.9 MCH 31.2 H MCHC 35.9 RDW 13.4 Plt Count 171 MPV 6.9 L Neut % (Auto) 67.9 Lymph % (Auto) 23.0 [place] % (Auto) 6.2 Eos % (Auto) 2.3 Baso % (Auto) 0.6 Neut # (Auto) 5.7 Lymph # (Auto) 1.9 [place] # (Auto) 0.5 Eos # (Auto) 0.2 Baso # (Auto) 0.0 D-Dimer, Quantitative Sodium 141 Potassium 4.6 Chloride 102 Carbon Dioxide 28 Anion Gap 17 BUN 25 H Creatinine 0.9 Est GFR ( Amer) > 60 Est GFR (Non-Af Amer) > 60 POC Glucose (mg/dL) 192 H Random Glucose 180 H Calcium 9.6 Magnesium 1.6 Total Bilirubin 0.8 AST 29 ALT 28 Alkaline Phosphatase 64 Troponin I < 0.0120 NT-Pro-B Natriuret Pep Total Protein 8.4 H Albumin 4.7 Globulin 3.7 Albumin/Globulin Ratio 1.3 01/02/18 01/02/18 16:37 16:37 WBC RBC Hgb Hct MCV MCH MCHC RDW Plt Count MPV Neut % (Auto) Lymph % (Auto) [place] % (Auto) Eos % (Auto) Baso % (Auto) Neut # (Auto) Lymph # (Auto) [place] # (Auto) Eos # (Auto) Baso # (Auto) D-Dimer, Quantitative 231 Sodium Potassium Chloride Carbon Dioxide Anion Gap BUN Creatinine Est GFR ( Amer) Est GFR (Non-Af Amer) POC Glucose (mg/dL) Random Glucose Calcium Magnesium Total Bilirubin AST ALT Alkaline Phosphatase Troponin I NT-Pro-B Natriuret Pep 36.5 Total Protein Albumin Globulin Albumin/Globulin Ratio Assessment & Plan (1) Lightheadedness Assessment and Plan: Admitted to telemetry- continue to monitor. Head CT w/o contrast ordered to r/o tia/cva Troponin x1: negative, <0.012 EKG: NSR@74 bpm; T wave inversions ROMIs & EKGs x2: f/u TSH/Free T4: f/u NS@75mls/hr Zofran 4mg IV Q6prn for nausea/vomiting Of note: patient states she does not want an invasive workup and does not want to stay in the hospital more than one night. Patient agreed to head CT, but does not want further studies, to include echocardiogram. Patient has had normal nuclear stress in 03/2017. Status: Acute (2) Abnormal EKG Assessment and Plan: Admitted to telemetry- continue to monitor EKG: NSR@74 bpm; T wave inversions Troponin x1: negative, <0.012--> ROMIs & EKGs x2: f/u TSH/Free T4: f/u NS@75mls/hr Zofran 4mg IV Q6prn for nausea/vomiting Status: Acute (3) Diabetes mellitus Assessment and Plan: Continue home medications: Metformin 1000mg PO BID & Glimepiride 2mg PO BID Accuchecks ISS Hypoglycemic protocol Status: Acute (4) HLD (hyperlipidemia) Assessment and Plan: Continue home medication: Pravastatin 10mg PO HS, ASA 81mg PO daily Status: Acute (5) Hypertension Assessment and Plan: Continue home medication: HCTZ 12.5mg PO daily Status: Acute (6) Prophylactic measure Assessment and Plan: DVT: SCDs GI: not indicated Low carb, Heart healthy, 2g Na diet Status: Acute <Mina,Peter H - Last Filed: 01/03/18 07:28> Results - Vital Signs Recent Vital Signs: Last Vital Signs Temp 97.7 F 01/03/18 04:15 Pulse 66 01/03/18 04:15 Resp 20 01/03/18 04:15 BP 133/74 01/03/18 04:15 Pulse Ox 96 01/03/18 04:15 - Labs Result Diagrams: 01/02/18 15:49 01/02/18 15:49 Labs: Laboratory Results - last 24 hr 01/02/18 01/02/18 01/02/18 14:42 15:49 15:49 WBC 8.4 RBC 4.03 Hgb 12.6 Hct 35.0 MCV 86.9 MCH 31.2 H MCHC 35.9 RDW 13.4 Plt Count 171 MPV 6.9 L Neut % (Auto) 67.9 Lymph % (Auto) 23.0 [place] % (Auto) 6.2 Eos % (Auto) 2.3 Baso % (Auto) 0.6 Neut # (Auto) 5.7 Lymph # (Auto) 1.9 [place] # (Auto) 0.5 Eos # (Auto) 0.2 Baso # (Auto) 0.0 D-Dimer, Quantitative Sodium 141 Potassium 4.6 Chloride 102 Carbon Dioxide 28 Anion Gap 17 BUN 25 H Creatinine 0.9 Est GFR ( Amer) > 60 Est GFR (Non-Af Amer) > 60 POC Glucose (mg/dL) 192 H Random Glucose 180 H Calcium 9.6 Magnesium 1.6 Total Bilirubin 0.8 AST 29 ALT 28 Alkaline Phosphatase 64 Total Creatine Kinase CK-MB (Mass) Troponin I < 0.0120 NT-Pro-B Natriuret Pep Total Protein 8.4 H Albumin 4.7 Globulin 3.7 Albumin/Globulin Ratio 1.3 Free T4 TSH 3rd Generation 01/02/18 01/02/18 01/02/18 16:37 16:37 19:13 WBC RBC Hgb Hct MCV MCH MCHC RDW Plt Count MPV Neut % (Auto) Lymph % (Auto) [place] % (Auto) Eos % (Auto) Baso % (Auto) Neut # (Auto) Lymph # (Auto) [place] # (Auto) Eos # (Auto) Baso # (Auto) D-Dimer, Quantitative 231 Sodium Potassium Chloride Carbon Dioxide Anion Gap BUN Creatinine Est GFR ( Amer) Est GFR (Non-Af Amer) POC Glucose (mg/dL) Random Glucose Calcium Magnesium Total Bilirubin AST ALT Alkaline Phosphatase Total Creatine Kinase CK-MB (Mass) Troponin I NT-Pro-B Natriuret Pep 36.5 Total Protein Albumin Globulin Albumin/Globulin Ratio Free T4 TSH 3rd Generation 1.69 01/02/18 01/02/18 01/02/18 19:13 21:55 22:00 WBC RBC Hgb Hct MCV MCH MCHC RDW Plt Count MPV Neut % (Auto) Lymph % (Auto) [place] % (Auto) Eos % (Auto) Baso % (Auto) Neut # (Auto) Lymph # (Auto) [place] # (Auto) Eos # (Auto) Baso # (Auto) D-Dimer, Quantitative Sodium Potassium Chloride Carbon Dioxide Anion Gap BUN Creatinine Est GFR ( Amer) Est GFR (Non-Af Amer) POC Glucose (mg/dL) 106 Random Glucose Calcium Magnesium Total Bilirubin AST ALT Alkaline Phosphatase Total Creatine Kinase 198 H CK-MB (Mass) 3.36 Troponin I < 0.0120 NT-Pro-B Natriuret Pep Total Protein Albumin Globulin Albumin/Globulin Ratio Free T4 1.21 TSH 3rd Generation 01/03/18 01/03/18 03:51 06:25 WBC RBC Hgb Hct MCV MCH MCHC RDW Plt Count MPV Neut % (Auto) Lymph % (Auto) [place] % (Auto) Eos % (Auto) Baso % (Auto) Neut # (Auto) Lymph # (Auto) [place] # (Auto) Eos # (Auto) Baso # (Auto) D-Dimer, Quantitative Sodium Potassium Chloride Carbon Dioxide Anion Gap BUN Creatinine Est GFR ( Amer) Est GFR (Non-Af Amer) POC Glucose (mg/dL) 106 Random Glucose Calcium Magnesium Total Bilirubin AST ALT Alkaline Phosphatase Total Creatine Kinase 179 H CK-MB (Mass) 2.53 Troponin I < 0.0120 NT-Pro-B Natriuret Pep Total Protein Albumin Globulin Albumin/Globulin Ratio Free T4 TSH 3rd Generation Attending/Attestation - Attestation I have personally seen and examined this patient.: Yes I have fully participated in the care of the patient.: Yes I have reviewed all pertinent clinical information: Yes Notes (Text): Medical attending: Patient was seen and examined by me. Agree with the above note by the resident The patient was feeling somewhat better when we saw her. Headache was still present. There was not yet done a CT of the head. She emphasized to us that she does not want a large work up. She further added that she has had extensive testing in this recent past and does not want additional testing. After discussing with her I explained that we would check cardiac enzymes as well as a CT of the head without contrast. If the lab work and CT scans are stable I explained to her that we would let her go after this. Review of previous recent studies include a nuclear stress test about 6 months ago that was stable as well as echo. She has also had numerous CT and MRIs as well. Amaury Mina
--- NOTE | 2018-01-02 18:57 | CT ---
PROCEDURE: CT HEAD WITHOUT CONTRAST. HISTORY: lightheadedness COMPARISON: Noncontrast head CT 07/09/2017. TECHNIQUE: Axial computed tomography images were obtained through the head/brain without intravenous contrast. Radiation dose: Total exam DLP = 839.92 mGy-cm. This CT exam was performed using one or more of the following dose reduction techniques: Automated exposure control, adjustment of the mA and/or kV according to patient size, and/or use of iterative reconstruction technique. FINDINGS: HEMORRHAGE: No intracranial hemorrhage. BRAIN: Borderline periventricular chronic microangiopathy reiterated. Normal corticomedullary differentiation is again appreciated and the ventricular sulcal sternal spaces remain normal in volume overall. There is no mass-effect in the midline brain anatomy is unremarkable. Posterior fossa contents are unremarkable including the brainstem. VENTRICLES: Unremarkable. No hydrocephalus. CALVARIUM: Unremarkable. PARANASAL SINUSES: Unremarkable as visualized. No significant inflammatory changes. MASTOID AIR CELLS: Unremarkable as visualized. No inflammatory changes. OTHER FINDINGS: None. IMPRESSION: Nonacute noncontrast head CT. Follow-up MRI or CT can be performed if clinically warranted. Trace chronic microangiopathy suspected. No significant interval change compared to noncontrast head CT 07/09/2017.
[2018-01-02] MEDS: Sodium Chloride 0.9% 1,000 ML IV SCH (19:56)
[2018-01-02] MEDS ORDERED: Sodium Chloride 0.9% 1,000 ML ONE (19:56)
[2018-01-02] MEDS: (Novolin R) Insulin Human Regular 100 units/ml vial SC SCH (22:00)
[2018-01-02] MEDS ORDERED: Rosuvastatin Calcium 2.5 mg Tab PO SCH (22:00)
[2018-01-02 22:20] VITALS: RESP 20
[2018-01-02 22:25] LABS: CK-MB 3.36 ng/mL (0.0-3.38)
[2018-01-03 04:29] LABS: CK-MB 2.53 ng/mL (0.0-3.38)
[2018-01-03] MEDS: (Novolin R) Insulin Human Regular 100 units/ml vial SC SCH (07:36)
[2018-01-03] MEDS: Sodium Chloride 0.9% 1,000 ML IV SCH (07:37)
[2018-01-03 08:03] VITALS: BP 142/79; TEMP 98.2; O2SAT 95
[2018-01-03 08:18] VITALS: PULSE 71
--- NOTE | 2018-01-03 09:34 | CP.PCM.DIS ---
<Ana Luisa Loyd - Last Filed: 01/03/18 09:17> Provider - Provider Date of Admission: 01/02/18 16:39 Attending physician: Lanette Miles DO Time Spent in preparation of Discharge (in minutes): 45 Diagnosis - Discharge Diagnosis (1) Lightheadedness Status: Acute (2) Abnormal EKG Status: Acute (3) Diabetes mellitus Status: Acute (4) HLD (hyperlipidemia) Status: Acute (5) Hypertension Status: Acute (6) Prophylactic measure Status: Acute Hospital Course - Lab Results Lab Results: Most Recent Lab Values WBC 8.4 K/uL (4.8-10.8) 01/02/18 15:49 RBC 4.03 Mil/uL (3.80-5.20) 01/02/18 15:49 Hgb 12.6 g/dL (11.0-16.0) 01/02/18 15:49 Hct 35.0 % (34.0-47.0) 01/02/18 15:49 MCV 86.9 fL (81.0-99.0) 01/02/18 15:49 MCH 31.2 pg (27.0-31.0) H 01/02/18 15:49 MCHC 35.9 g/dL (33.0-37.0) 01/02/18 15:49 RDW 13.4 % (11.5-14.5) 01/02/18 15:49 Plt Count 171 K/uL (130-400) 01/02/18 15:49 MPV 6.9 fL (7.2-11.7) L 01/02/18 15:49 Neut % (Auto) 67.9 % (50.0-75.0) 01/02/18 15:49 Lymph % (Auto) 23.0 % (20.0-40.0) 01/02/18 15:49 Mccreary % (Auto) 6.2 % (0.0-10.0) 01/02/18 15:49 Eos % (Auto) 2.3 % (0.0-4.0) 01/02/18 15:49 Baso % (Auto) 0.6 % (0.0-2.0) 01/02/18 15:49 Neut # (Auto) 5.7 K/uL (1.8-7.0) 01/02/18 15:49 Lymph # (Auto) 1.9 K/uL (1.0-4.3) 01/02/18 15:49 Mccreary # (Auto) 0.5 K/uL (0.0-0.8) 01/02/18 15:49 Eos # (Auto) 0.2 K/uL (0.0-0.7) 01/02/18 15:49 Baso # (Auto) 0.0 K/uL (0.0-0.2) 01/02/18 15:49 D-Dimer, Quantitative 231 ng/mlDDU (0-243) 01/02/18 16:37 Sodium 141 mmol/L (132-148) 01/02/18 15:49 Potassium 4.6 mmol/L (3.6-5.2) 01/02/18 15:49 Chloride 102 mmol/L (98-107) 01/02/18 15:49 Carbon Dioxide 28 mmol/L (22-30) 01/02/18 15:49 Anion Gap 17 (10-20) 01/02/18 15:49 BUN 25 mg/dL (7-17) H 01/02/18 15:49 Creatinine 0.9 mg/dL (0.7-1.2) 01/02/18 15:49 Est GFR ( Amer) > 60 01/02/18 15:49 Est GFR (Non-Af Amer) > 60 01/02/18 15:49 POC Glucose (mg/dL) 106 mg/dL (65-110) 01/03/18 06:25 Random Glucose 180 mg/dL (65-105) H 01/02/18 15:49 Calcium 9.6 mg/dl (8.6-10.4) 01/02/18 15:49 Magnesium 1.6 mg/dL (1.6-2.3) 01/02/18 15:49 Total Bilirubin 0.8 mg/dL (0.2-1.3) 01/02/18 15:49 AST 29 U/L (14-36) 01/02/18 15:49 ALT 28 U/L (9-52) 01/02/18 15:49 Alkaline Phosphatase 64 U/L (38-126) 01/02/18 15:49 Total Creatine Kinase 179 U/L (30-135) H 01/03/18 03:51 CK-MB (Mass) 2.53 ng/mL (0.0-3.38) 01/03/18 03:51 Troponin I < 0.0120 ng/mL (0.00-0.120) 01/03/18 03:51 NT-Pro-B Natriuret Pep 36.5 pg/mL (0-900) 01/02/18 16:37 Total Protein 8.4 g/dL (6.3-8.3) H 01/02/18 15:49 Albumin 4.7 g/dL (3.5-5.0) 01/02/18 15:49 Globulin 3.7 gm/dL (2.2-3.9) 01/02/18 15:49 Albumin/Globulin Ratio 1.3 (1.0-2.1) 01/02/18 15:49 Free T4 1.21 ng/dL (0.78-2.19) 01/02/18 19:13 TSH 3rd Generation 1.69 mIU/L (0.46-4.68) 01/02/18 19:13 - Hospital Course Hospital Course: CC: "I'm lightheaded and feel like I need to throw up." HPI: Patient is a 62 year old female with a past medical history of HTN, HLD, DM , depression, anxiety, and vertigo, who presents to the ED with complaints of lightheadedness and nausea that started this afternoon. The patient says she was on the bus with her son after shopping, when she suddenly felt lightheaded, slightly diaphoretic, and felt nauseas. She got off the bus and called 911. Patient says she takes all of her medications as prescribed, and took her medications this morning. She checked her glucose and blood pressure this morning, 150s and 117/77. The patient currently feels better, denies nausea and diaphoresis, however, feels "heavy headed, mainly on the right side". Patient denies chest pain, abdominal pain, dyspnea, vomiting, fevers, headaches, leg pain/swelling, vision changes, spinning room sensation, numbness, tingling, and weakness. PMD: Dr. Kenney PMHx: HTN, HLD, DM, depression, anxiety, and vertigo SurgHx: L knee surgery x2; c section 1995 FamHx: Mother- colon and breast cancer; sister-breast cancer SocHx: denies tobacco, alcohol, and drug use; lives with son, Manuel, in . Allergies: anesthetics, ibuprofen, morphine, nsaids, codeine Medications: Metformin 1000mg PO BID, Glimepiride 2mg PO BID, Pravastatin 10mg PO daily, ASA 81mg PO daily, HCTZ 12.5mg PO daily Hospital course: Patient was admitted on 01/02/18 for lightheadedness and EKG changes. Patient was placed on telemetry. Head CT was ordered and showed no acute pathology, trace chronic microangiopathy; no significant interval change compared to prior noncontrast head CT. ROMIs and EKGs were ordered. Initial EKG in the ED showed T wave inversions and nonspecific intraventricular block. Two repeat EKG showed no T wave changes and nonspecific intraventricular block; however, the block was noted on several prior EKG from previous ER visits. ROMIs x 3 were negative. Thyroid panel was ordered and within normal range. Patient was given IV fluids. Patients symptoms resolved and she reports she feels better. Patient is stable for discharge to home. Patient must follow up with PMD, Dr. Kenney, within 1-2 weeks of discharge. Of note: patient states she does not want an invasive workup and does not want to stay in the hospital more than one night. Patient agreed to head CT, but does not want further studies, to include echocardiogram. Patient has had normal nuclear stress in 03/2017. This is a brief summary of the hospital course. Please see EMR for more details. Discharge Exam - Additional Findings Additional findings: - Constitutional Appears: No Acute Distress - Head Exam Head Exam: ATRAUMATIC, NORMAL INSPECTION - Eye Exam Eye Exam: EOMI, Normal appearance, PERRL - ENT Exam ENT Exam: Mucous Membranes Moist Additional comments: no teeth, no dentures - Respiratory Exam Respiratory Exam: Clear to Auscultation Bilateral, NORMAL BREATHING PATTERN. absent: Rales, Rhonchi, Wheezes, Respiratory Distress - Cardiovascular Exam Cardiovascular Exam: REGULAR RHYTHM, +S1, +S2. absent: Bradycardia, Tachycardia - GI/Abdominal Exam GI & Abdominal Exam: Normal Bowel Sounds, Soft. absent: Distended, Firm, Guarding, Tenderness - Extremities Exam Extremities exam: Positive for: full ROM, normal inspection, pedal pulses present. Negative for: pedal edema, tenderness - Neurological Exam Neurological exam: Alert, CN II-XII Intact, Oriented x3 Additional comments: UE/LE bilaterally- 5/5 strength, full ROM, sensation intact; normal finger to nose, normal heel to arredondo; CN2-12intact. Asymmetrical smile (droop on the right side of mouth-patient states she has had that for awhile) - Psychiatric Exam Psychiatric exam: Normal Affect, Normal Mood - Skin Skin Exam: Dry, Intact, Normal Color, Warm Additional comments: well healed scar on left knee s/p surgery Discharge Plan - Follow Up Plan Condition: FAIR Disposition: HOME/ ROUTINE Instructions: Diabetes Exchange Diet, DASH Diet, High Blood Pressure (DC), Low Salt Diet, High Cholesterol (DC), Diabetes and Diet, Near Fainting (DC) Additional Instructions: Patient is stable for discharge to home. Patient must continue all medications: 1. Metformin 1000mg PO BID 2. Glimepiride 2mg PO BID 3. Pravastatin 10mg PO daily 4. ASA 81mg PO daily 5. HCTZ 12.5mg PO daily Patient must follow up with her PMD within 1-2 weeks of discharge. If symptoms worsen or reoccur, patient should return to the nearest ED. <Amaury Mina - Last Filed: 01/03/18 12:11> Provider - Provider Date of Admission: 01/02/18 16:39 Attending physician: Lanette Miles DO Hospital Course - Lab Results Lab Results: Most Recent Lab Values WBC 8.4 K/uL (4.8-10.8) 01/02/18 15:49 RBC 4.03 Mil/uL (3.80-5.20) 01/02/18 15:49 Hgb 12.6 g/dL (11.0-16.0) 01/02/18 15:49 Hct 35.0 % (34.0-47.0) 01/02/18 15:49 MCV 86.9 fL (81.0-99.0) 01/02/18 15:49 MCH 31.2 pg (27.0-31.0) H 01/02/18 15:49 MCHC 35.9 g/dL (33.0-37.0) 01/02/18 15:49 RDW 13.4 % (11.5-14.5) 01/02/18 15:49 Plt Count 171 K/uL (130-400) 01/02/18 15:49 MPV 6.9 fL (7.2-11.7) L 01/02/18 15:49 Neut % (Auto) 67.9 % (50.0-75.0) 01/02/18 15:49 Lymph % (Auto) 23.0 % (20.0-40.0) 01/02/18 15:49 Mccreary % (Auto) 6.2 % (0.0-10.0) 01/02/18 15:49 Eos % (Auto) 2.3 % (0.0-4.0) 01/02/18 15:49 Baso % (Auto) 0.6 % (0.0-2.0) 01/02/18 15:49 Neut # (Auto) 5.7 K/uL (1.8-7.0) 01/02/18 15:49 Lymph # (Auto) 1.9 K/uL (1.0-4.3) 01/02/18 15:49 Mccreary # (Auto) 0.5 K/uL (0.0-0.8) 01/02/18 15:49 Eos # (Auto) 0.2 K/uL (0.0-0.7) 01/02/18 15:49 Baso # (Auto) 0.0 K/uL (0.0-0.2) 01/02/18 15:49 D-Dimer, Quantitative 231 ng/mlDDU (0-243) 01/02/18 16:37 Sodium 141 mmol/L (132-148) 01/02/18 15:49 Potassium 4.6 mmol/L (3.6-5.2) 01/02/18 15:49 Chloride 102 mmol/L (98-107) 01/02/18 15:49 Carbon Dioxide 28 mmol/L (22-30) 01/02/18 15:49 Anion Gap 17 (10-20) 01/02/18 15:49 BUN 25 mg/dL (7-17) H 01/02/18 15:49 Creatinine 0.9 mg/dL (0.7-1.2) 01/02/18 15:49 Est GFR ( Amer) > 60 01/02/18 15:49 Est GFR (Non-Af Amer) > 60 01/02/18 15:49 POC Glucose (mg/dL) 235 mg/dL (65-110) H 01/03/18 11:24 Random Glucose 180 mg/dL (65-105) H 01/02/18 15:49 Calcium 9.6 mg/dl (8.6-10.4) 01/02/18 15:49 Magnesium 1.6 mg/dL (1.6-2.3) 01/02/18 15:49 Total Bilirubin 0.8 mg/dL (0.2-1.3) 01/02/18 15:49 AST 29 U/L (14-36) 01/02/18 15:49 ALT 28 U/L (9-52) 01/02/18 15:49 Alkaline Phosphatase 64 U/L (38-126) 01/02/18 15:49 Total Creatine Kinase 179 U/L (30-135) H 01/03/18 03:51 CK-MB (Mass) 2.53 ng/mL (0.0-3.38) 01/03/18 03:51 Troponin I < 0.0120 ng/mL (0.00-0.120) 01/03/18 03:51 NT-Pro-B Natriuret Pep 36.5 pg/mL (0-900) 01/02/18 16:37 Total Protein 8.4 g/dL (6.3-8.3) H 01/02/18 15:49 Albumin 4.7 g/dL (3.5-5.0) 01/02/18 15:49 Globulin 3.7 gm/dL (2.2-3.9) 01/02/18 15:49 Albumin/Globulin Ratio 1.3 (1.0-2.1) 01/02/18 15:49 Free T4 1.21 ng/dL (0.78-2.19) 01/02/18 19:13 TSH 3rd Generation 1.69 mIU/L (0.46-4.68) 01/02/18 19:13 Attending/Attestation - Attestation I have personally seen and examined this patient.: Yes I have fully participated in the care of the patient.: Yes I have reviewed all pertinent clinical information, including history, physical exam and plan: Yes Notes (Text): 01/03/18 12:07 Medical attending: Patient was seen and examined by me. Agree with the above note by the resident Patient reported feeling much better this AM, the CT scan of the head was negative for acute proccess and the cardiac enzymes were negative as well. She felt ready to go. We asked her several times if she had blurry vision or headache or heaviness like before - and she said this had resolved. Amaury Mina
[2018-01-03] MEDS ORDERED: Enoxaparin 40 mg Syringe SC SCH (10:00)
--- NOTE | 2018-01-03 22:25 | CARD ---
APPROVED REPORT EKG Measurement Heart [id number] LA 184P70 [id number] <Conclusion> Normal sinus rhythm Nonspecific intraventricular block T wave abnormality, consider inferior ischemia T wave abnormality, consider anterolateral ischemia Abnormal ECG
--- NOTE | 2018-01-03 22:26 | CARD ---
APPROVED REPORT EKG Measurement Heart [id number] [place] 194P41 [id number] <Conclusion> Normal sinus rhythm Nonspecific intraventricular block Abnormal ECG
== END 2018-01-03 12:16 | disposition home or self-care (01) ==
LOC: C.ER 14:31 → C.9E 16:39 → C.6T 20:54
PROVIDERS: ADMIT Hospitalist; ATTEND Hospitalist
DX: R42 Dizziness and giddiness (principal); R94.31 Abnormal electrocardiogram [ECG] [EKG]; E11.9 Type 2 diabetes mellitus without complications; E78.00 Pure hypercholesterolemia, unspecified; E78.5 Hyperlipidemia, unspecified; I10 Essential (primary) hypertension; M17.12 Unilateral primary osteoarthritis, left knee; Z79.82 Long term (current) use of aspirin; Z79.84 Long term (current) use of oral hypoglycemic drugs; Z80.3 Family history of malignant neoplasm of breast; Z87.891 Personal history of nicotine dependence
CPT/HCPCS: 36415; 70450; 71045; 80053; 82948; 83735; 83880; 84439; 84443; 84484; 85025; 85378; 93005; 96372; 96374; 99285; G0378; J1650; J2765; J7030; J7040

== ENCOUNTER 2018-04-13 15:20 | Emergency (ER) | payer OTHER ==
[2018-04-13 15:21] VITALS: BMI 29.2
[2018-04-13 15:46] VITALS: BP 159/79; PULSE 89; RESP 20; TEMP 98.6; O2SAT 98
--- NOTE | 2018-04-13 16:56 | C.PDOC ---
History Of Present Illness 62 y/o female presents to ED for evaluation. Pt states she noticed blood in the tissue paper when wiping today. Denies abdominal pain, n/v/d, fever, or any other complaints at this time. Time Seen by Provider: 04/13/18 16:31 Chief Complaint (Nursing): Female Genitourinary History Per: Patient History/Exam Limitations: no limitations Past Medical History Reviewed: Historical Data, Nursing Documentation, Vital Signs Vital Signs: Last Vital Signs Temp 98.6 F 04/13/18 15:41 Pulse 89 04/13/18 15:41 Resp 20 04/13/18 15:41 BP 159/79 H 04/13/18 15:41 Pulse Ox 98 04/13/18 15:41 - Medical History PMH: Anxiety, Arthritis (L KNEE), Depression, Diabetes (Type 2), HTN, Hyperch olesterolemia - [facility] Procedures GROUP PSYCHOTHERAPY (08/14/17) INDIVIDUAL PSYCHOTHERAPY, COGNITIVE-BEHAVIORAL (08/14/17) INDIVIDUAL PSYCHOTHERAPY, SUPPORTIVE (08/14/17) INSERTION OF INFUSION DEV INTO SUP VENA CAVA, PERC APPROACH (01/18/17) OTH NONOPER CARD AND VASC MEASURE (01/07/14) OTHER SKIN & SUBQ I D (09/29/13) Family History: States: Unknown Family Hx - Social History Hx Tobacco Use: No Hx Alcohol Use: No Hx Substance Use: No - Immunization History Hx Tetanus Toxoid Vaccination: (unk) Hx Influenza Vaccination: No Hx Pneumococcal Vaccination: (unk) Review Of Systems Except As Marked, All Systems Reviewed And Found Negative. Constitutional: Negative for: Fever, Chills Cardiovascular: Negative for: Chest Pain Respiratory: Negative for: Shortness of Breath Gastrointestinal: Negative for: Nausea, Vomiting Genitourinary: Negative for: Dysuria, Frequency Musculoskeletal: Negative for: Back Pain Neurological: Negative for: Headache, Dizziness Physical Exam - Physical Exam Appears: Non-toxic, No Acute Distress Skin: Normal Color, Warm, Dry Head: Atraumatic, Normacephalic Eye(s): bilateral: Normal Inspection Oral Mucosa: Moist Neck: Supple Cardiovascular: Rhythm Regular Respiratory: Normal Breath Sounds, No Rales, No Rhonchi, No Wheezing Gastrointestinal/Abdominal: Soft, No Tenderness Rectal: Hemorrhoids (non-bleeding) Pelvic: No Vaginal Bleeding, No Vaginal Discharge Extremity: Normal ROM Neurological/Psych: Oriented x3, Normal Speech ED Course And Treatment O2 Sat by Pulse Oximetry: 98 Pulse Ox Interpretation: Normal Medical Decision Making Medical Decision Making: small blood when wiping external hemorroid with small blood, non-bleeding now no vag bleed/spotting Disposition Doctor Will See Patient In The: Office Counseled Patient/Family Regarding: Studies Performed, Diagnosis - Disposition Referrals: Ben Kenney MD [Staff Provider] - Disposition: HOME/ ROUTINE Disposition Time: 16:56 Condition: GOOD Additional Instructions: small external hemorroid on exam no vaginal bleeding on exam Instructions: Hemorrhoids Forms: [employer] (Cook Islander) - Clinical Impression Clinical Impression: External hemorrhoid - Scribe Statement The provider has reviewed the documentation as recorded by the Scribe KP All medical record entries made by the Scribe were at my direction and personally dictated by me. I have reviewed the chart and agree that the record accurately reflects my personal performance of the history, physical exam, medical decision making, and the department course for this patient. I have also personally directed, reviewed, and agree with the discharge instructions and disposition.
== END 2018-04-13 17:09 | disposition home or self-care (01) ==
LOC: C.ER 15:20
DX: K64.4 Residual hemorrhoidal skin tags (principal)

== ENCOUNTER 2018-05-23 17:27 | Emergency (ER) | payer OTHER ==
[2018-05-23 17:28] VITALS: BMI 29.2
--- NOTE | 2018-05-23 17:45 | C.PDOC ---
History Of Present Illness 62 y/o female presents to the ED for evaluation s/p fall earlier today. Patient states she was walking down steps when her left knee buckled, causing her to fall forward. She landed on the left knee and both hands, also hit her nose. Denies any LOC or head trauma. Patient reports having some epistaxis which resolved quickly. She was able to get up by herself and walk home, where she took a nap. When leaving home tonight, patient became suddenly dizzy, described as room-spinning. Denies any severe headache, nausea, vomiting, chest pain, palpitations, or visual disturbance. Patient reports feeling slightly better now, but still reports pain to nose and left knee. Time Seen by Provider: 05/23/18 17:30 Chief Complaint (Nursing): Dizziness/Lightheaded History Per: Patient History/Exam Limitations: no limitations Onset/Duration Of Symptoms: Hrs Current Symptoms Are (Timing): Still Present Past Medical History Reviewed: Historical Data, Nursing Documentation, Vital Signs - Medical History PMH: Anxiety, Arthritis (L KNEE), Depression, Diabetes (Type 2), HTN, Hypercholesterolemia - [facility] Procedures GROUP PSYCHOTHERAPY (08/14/17) INDIVIDUAL PSYCHOTHERAPY, COGNITIVE-BEHAVIORAL (08/14/17) INDIVIDUAL PSYCHOTHERAPY, SUPPORTIVE (08/14/17) INSERTION OF INFUSION DEV INTO SUP VENA CAVA, PERC APPROACH (01/18/17) OTH NONOPER CARD AND VASC MEASURE (01/07/14) OTHER SKIN & SUBQ I D (09/29/13) Family History: States: Unknown Family Hx - Social History Hx Tobacco Use: No Hx Alcohol Use: No Hx Substance Use: No - Immunization History Hx Tetanus Toxoid Vaccination: (unk) Hx Influenza Vaccination: No Hx Pneumococcal Vaccination: (unk) Review Of Systems Constitutional: Negative for: Fever Eyes: Negative for: Vision Change ENT: Positive for: Nose Pain Cardiovascular: Negative for: Chest Pain, Palpitations Respiratory: Negative for: Cough, Shortness of Breath Gastrointestinal: Negative for: Nausea, Vomiting Musculoskeletal: Positive for: Leg Pain (Left knee). Negative for: Back Pain Skin: Negative for: Lesions Neurological: Positive for: Dizziness. Negative for: Weakness (focal), Numbness Physical Exam - Physical Exam Appears: Non-toxic, No Acute Distress Skin: Warm, Dry Head: Atraumatic, Normacephalic, No Swelling, No Laceration Eye(s): bilateral: Normal Inspection (no nystagmus), PERRL, EOMI Nose: No Deformity, Tenderness (mildly tender over nasal bridge) Oral Mucosa: Moist Neck: Normal ROM, No Midline Cervical Tenderness, Supple Chest: Symmetrical Cardiovascular: Rhythm Regular, No Murmur Respiratory: Normal Breath Sounds, No Rales, No Rhonchi, No Wheezing Gastrointestinal/Abdominal: Soft, No Tenderness, No Distention, No Rebound Back: No CVA Tenderness, No Vertebral Tenderness Extremity: Normal ROM (with good ROM of left knee), Tenderness (to the anterior left patella), Capillary Refill (less than 2 sec), No Deformity, Swelling (and ecchymosis noted to left patella) Pulses: Left Dorsalis Pedis: Normal, Right Dorsalis Pedis: Normal Neurological/Psych: Oriented x3, Normal Speech, Normal Cranial Nerves, Normal Motor, Normal Sensation, Other (No focal deficits) Gait: Steady ED Course And Treatment - Laboratory Results Result Diagrams: 05/23/18 18:27 05/23/18 18:27 Lab Interpretation: No Acute Changes ECG: Interpreted By Me ECG Rhythm: Sinus Rhythm (with PVCs), R BBB ECG Interpretation: No Acute Changes O2 Sat by Pulse Oximetry: 100 (RA) Pulse Ox Interpretation: Normal - Other Rad Left knee X-Ray: Viewed By Me, Read By Radiologist Interpretation: No acute fracture or dislocation. small prepatellar effusion - CT Scan/US Head Other Rad Studies (CT/US): Read By Radiologist, Radiology Report Reviewed CT/US Interpretation: Accession No. : [id number]. Patient Name / ID : DOUGLAS JIMENEZ / [id number]. Exam Date : 05/23/2018 18:08:56 ( Approved ). Study Comment : Sex / Age : F / 62Y. Creator : Kathy Valdovinos MD. Dictator : Kathy Valdovinos MD. Hand Tacker : Cover Marker : Kathy Valdovinos MD. Approver2 : Report Date : 05/23/2018 18:27:33. My Comment : . Date of service: 05/23/2018. PROCEDURE: CT HEAD WITHOUT CONTRAST. HISTORY: R/O Bleed. COMPARISON: None available. TECHNIQUE: Axial computed tomography images were obtained through the head/brain without intravenous contrast. Radiation dose: Total exam DLP = 1044.02 mGy-cm. This CT exam was performed using one or more of the following dose reduction techniques: Automated exposure control, adjustment of the mA and/or kV according to patient size, and/or use of iterative reconstruction technique. FINDINGS: HEMORRHAGE: No intracranial hemorrhage. BRAIN: No mass effect or edema. The arvizu-white matter differentiation appears intact. Please note that MRI with diffusion imaging is more sensitive in the detection of acute ischemic event. VENTRICLES: No hydrocephalus. CALVARIUM: Unremarkable. PARANASAL SINUSES: Unremarkable as visualized. No significant inflammatory changes. MASTOID AIR CELLS: Unremarkable as visualized. No inflammatory changes. OTHER FINDINGS: None. IM PRESSION: No acute intracranial pathology identified. Reevaluation Time: 19:17 Reassessment Condition: Improved Medical Decision Making Medical Decision Making: Initial Plan: --CMP --CBC --EKG --CT Head --Left knee x-ray --Reassess and dispo Disposition Counseled Patient/Family Regarding: Studies Performed, Diagnosis, Need For Followup - Disposition Referrals: Ben Kenney MD [Staff Provider] - Disposition: HOME/ ROUTINE Disposition Time: 19:18 Condition: IMPROVED Instructions: Vertigo (a Type of Dizziness), Contusion (DC) Forms: [employer] (Kiswahili) - Clinical Impression Clinical Impression: Dizziness, Contusion of knee, left, Contusion of face - Scribe Statement The provider has reviewed the documentation as recorded by the Scribe (Floresita Phillips) Provider Attestation: All medical record entries made by the Scribe were at my direction and personally dictated by me. I have reviewed the chart and agree that the record accurately reflects my personal performance of the history, physical exam, medical decision making, and the department course for this patient. I have also personally directed, reviewed, and agree with the discharge instructions and disposition.
[2018-05-23 18:30] VITALS: O2SAT 100
--- NOTE | 2018-05-23 18:31 | CT ---
Date of service: 05/23/2018 PROCEDURE: CT HEAD WITHOUT CONTRAST. HISTORY: R/O Bleed COMPARISON: None available. TECHNIQUE: Axial computed tomography images were obtained through the head/brain without intravenous contrast. Radiation dose: Total exam DLP = 1044.02 mGy-cm. This CT exam was performed using one or more of the following dose reduction techniques: Automated exposure control, adjustment of the mA and/or kV according to patient size, and/or use of iterative reconstruction technique. FINDINGS: HEMORRHAGE: No intracranial hemorrhage. BRAIN: No mass effect or edema. The arvizu-white matter differentiation appears intact. Please note that MRI with diffusion imaging is more sensitive in the detection of acute ischemic event. VENTRICLES: No hydrocephalus. CALVARIUM: Unremarkable. PARANASAL SINUSES: Unremarkable as visualized. No significant inflammatory changes. MASTOID AIR CELLS: Unremarkable as visualized. No inflammatory changes. OTHER FINDINGS: None. IMPRESSION: No acute intracranial pathology identified.
[2018-05-23 18:32] LABS: BASO # 0.1 K/uL (0.0-0.2); BASO % 0.6 % (0.0-2.0); EOS # 0.2 K/uL (0.0-0.7); EOS % 2.8 % (0.0-4.0); HEMOGLOBIN 11.5 g/dL (11.0-16.0); LYMPH # 2.6 K/uL (1.0-4.3); LYMPH % 31.9 % (20.0-40.0); MEAN CELL VOLUME 87.8 fL (81.0-99.0); MEAN CORPUSCULAR HEMOGLOBIN 30.5 pg (27.0-31.0); MEAN CORPUSCULAR HGB CONC 34.7 g/dL (33.0-37.0); MEAN PLATELET VOLUME 6.5 fL (7.2-11.7); MONO # 0.6 K/uL (0.0-0.8); MONO % 7.2 % (0.0-10.0); NEUT # 4.7 K/uL (1.8-7.0); NEUT % 57.5 % (50.0-75.0); NRBC % 0.1 % (0.0-2.0); RBC 3.78 Mil/uL (3.80-5.20); RED CELL DISTRIBUTION WIDTH 13.1 % (11.5-14.5); WHITE BLOOD COUNT 8.1 K/uL (4.8-10.8)
--- NOTE | 2018-05-23 18:36 | RAD ---
PROCEDURE: Left Knee Radiographs. HISTORY: Contusion COMPARISON: No prior. FINDINGS: BONES: No acute displaced fracture. JOINTS: No dislocation. JOINT EFFUSION: Small suprapatellar joint effusion. OTHER FINDINGS: Dense vascular calcifications. IMPRESSION: Small suprapatellar joint effusion. No acute displaced fracture or dislocation identified. If symptoms persist, or if there is continued clinical concern, x-ray follow-up in 7-10 days should be considered.
[2018-05-23 18:49] LABS: ALB/GLOB RATIO 1.1 (1.0-2.1); ALBUMIN 4.2 g/dL (3.5-5.0); ALT/SGPT 18 U/L (9-52); AST/SGOT 25 U/L (14-36); BLOOD UREA NITROGEN 22 mg/dL (7-17); GFR NON-AFRICAN AMERICAN > 60
[2018-05-23 19:30] VITALS: BP 165/81; PULSE 72; RESP 16; TEMP 98.1
--- NOTE | 2018-05-24 12:46 | CARD ---
APPROVED REPORT Date of service: 05/23/2018 EKG Measurement Heart [id number] [place] [id number] <Conclusion> Sinus rhythm with occasional premature ventricular complexes Right bundle branch block Moderate voltage criteria for LVH, may be normal variant Abnormal ECG
== END 2018-05-23 19:46 | disposition home or self-care (01) ==
LOC: C.ER 17:27
DX: S00.83XA Contusion of other part of head, initial encounter (principal); S80.02XA Contusion of left knee, initial encounter; W10.9XXA Fall (on) (from) unspecified stairs and steps, initial encounter; Y92.9 Unspecified place or not applicable; R42 Dizziness and giddiness; I10 Essential (primary) hypertension; E78.00 Pure hypercholesterolemia, unspecified; M17.12 Unilateral primary osteoarthritis, left knee; Z87.891 Personal history of nicotine dependence

== ENCOUNTER 2018-06-11 13:43 | Inpatient (IN) | payer OTHER ==
[2018-06-11 13:43] VITALS: BMI 29.2
--- NOTE | 2018-06-11 14:28 | C.PDOC ---
History Of Present Illness 62 year old female is sent to the ED by her health safety coordinator, Dr. Martinez, for evaluation of an open wound on her left big toe. Patient states she has had the wound for around two weeks, after she removed a callus from the foot and ripped the skin off. Patient has been previously evaluated by her health safety coordinator and started on antibiotics, without relief. Patient was sent to the ED to undergo an x-ray of the foot and receive further evaluation and treatment. Patient denies fever, chills, discharge, extremity weakness or sensorivascular changes. Time Seen by Provider: 06/11/18 14:14 Chief Complaint (Nursing): Abnormal Skin Integrity History Per: Patient History/Exam Limitations: no limitations Onset/Duration Of Symptoms: Other (two weeks ) Current Symptoms Are (Timing): Still Present Location Of Injury: Left: Foot (big toe ) Quality Of Symptoms: denies: Draining Additional History Per: Patient Past Medical History Reviewed: Historical Data, Nursing Documentation, Vital Signs Vital Signs: Last Vital Signs Temp 98 F 06/11/18 13:59 Pulse 87 06/11/18 13:59 Resp 20 06/11/18 13:59 BP 137/66 06/11/18 13:59 Pulse Ox 98 06/11/18 13:59 - Medical History PMH: Anxiety, Arthritis (L KNEE), Depression, Diabetes (Type 2), HTN, Hypercholesterolemia Denies: Hepatitis, HIV, Seizures, Sexually Transmitted Disease Surgical History: - [facility] GROUP PSYCHOTHERAPY (08/14/17) INDIVIDUAL PSYCHOTHERAPY, COGNITIVE-BEHAVIORAL (08/14/17) INDIVIDUAL PSYCHOTHERAPY, SUPPORTIVE (08/14/17) INSERTION OF INFUSION DEV INTO SUP VENA CAVA, PERC APPROACH (01/18/17) OTH NONOPER CARD AND VASC MEASURE (01/07/14) OTHER SKIN & SUBQ I D (09/29/13) Family History: States: Unknown Family Hx - Social History Hx Tobacco Use: No Hx Alcohol Use: No Hx Substance Use: No - Immunization History Hx Tetanus Toxoid Vaccination: (unk) Hx Influenza Vaccination: No Hx Pneumococcal Vaccination: (unk) Review Of Systems Constitutional: Negative for: Fever, Chills Skin: Positive for: Other (open wound to left big toe. no discharge ) Neurological: Negative for: Weakness, Numbness Physical Exam - Physical Exam Appears: Well, Non-toxic, No Acute Distress Skin: Normal Color, Warm, Dry Head: Normacephalic Eye(s): bilateral: PERRL Nose: Normal Throat: No Drooling Neck: Trachea Midline, Supple Cardiovascular: Rhythm Regular, No Murmur, No JVD, Other ((-) carotid bruits b/L) Respiratory: No Decreased Breath Sounds, No Accessory Muscle Use, No Stridor, No Wheezing Gastrointestinal/Abdominal: Soft, No Tenderness, No Distention, No Guarding Back: No CVA Tenderness Extremity: Normal ROM (left foot), Tenderness (mild over the tip of left 1st toe ), Capillary Refill (less than 2sec to left foot), No Deformity, Other (small open wound plantar aspect left 1st distal phalanx, clean, dry, intact. Mild peripheral sienna anad erythema. No proximal streaking.) Neurological/Psych: Oriented x3, Normal Speech, Normal Motor, Normal Sensation, Normal Reflexes ED Course And Treatment - Laboratory Results Result Diagrams: 06/11/18 14:34 06/11/18 14:34 Lab Interpretation: No Acute Changes O2 Sat by Pulse Oximetry: 98 (on RA) Pulse Ox Interpretation: Normal - Other Rad left foot xray from 06/06/18 X-Ray: Read By Radiologist Interpretation: Questionable bony erosion at medial proximal aspect of 1st distal phalanx. MRI recommend. Progress Note: Patient's foot XR results from 06/06/18 show questionable bony erosion that is consistent with osteomyelitis. Patient's wound culture is positive for MRSA. Bloodwork and urinalysis ordered and reviewed. Zosyn IV and Vancomycin IVP given. Case discussed with Dr. Martinez. Patient will be admitted to medicine content coordinator. Podiatry resident is notified and will evaluate the patient at bedside. case discussed with , requested CXR, EKG, admisison ac cepted. Disposition - Disposition Disposition: HOSPITALIZED Disposition Time: 15:10 Condition: STABLE Forms: [facility] (Luxembourgish) - Clinical Impression Clinical Impression: Foot ulcer, Osteomyelitis - PA / TUNNEL ELASTIC OPERATOR CHAINSTITCH / Resident Statement MD/DO has reviewed & agrees with the documentation as recorded. - Scribe Statement The provider has reviewed the documentation as recorded by the Scribe (Shasta Mercado) All medical record entries made by the Scribe were at my direction and personally dictated by me. I have reviewed the chart and agree that the record accurately reflects my personal performance of the history, physical exam, medical decision making, and the department course for this patient. I have also personally directed, reviewed, and agree with the discharge instructions and disposition.
[2018-06-11 14:37] LABS: BASO # 0.1 K/uL (0.0-0.2); BASO % 0.8 % (0.0-2.0); EOS # 0.2 K/uL (0.0-0.7); EOS % 2.2 % (0.0-4.0); HEMOGLOBIN 11.2 g/dL (11.0-16.0); LYMPH # 3.3 K/uL (1.0-4.3); LYMPH % 35.8 % (20.0-40.0); MEAN CELL VOLUME 88.7 fL (81.0-99.0); MEAN CORPUSCULAR HEMOGLOBIN 30.1 pg (27.0-31.0); MEAN PLATELET VOLUME 6.8 fL (7.2-11.7); MONO # 0.6 K/uL (0.0-0.8); MONO % 6.7 % (0.0-10.0); NEUT % 54.5 % (50.0-75.0); RBC 3.71 Mil/uL (3.80-5.20); RED CELL DISTRIBUTION WIDTH 13.6 % (11.5-14.5); WHITE BLOOD COUNT 9.1 K/uL (4.8-10.8)
[2018-06-11 14:45] LABS: SQUAMOUS EPITHIAL 2 /hpf (0-5); URINE BILIRUBIN NEGATIVE (NEGATIVE); URINE BLOOD 1+ (NEGATIVE); URINE CLARITY Clear (Clear); URINE COLOR Yellow (YELLOW); URINE GLUCOSE (UA) NORMAL (Normal); URINE LEUKOCYTE ESTERASE NEG Leu/uL (Negative); URINE PROTEIN NEGATIVE (NEGATIVE)
[2018-06-11 14:48] LABS: INR 1.1; PROTHROMBIN TIME 11.9 SECONDS (9.7-12.2)
[2018-06-11 15:01] LABS: ALB/GLOB RATIO 1.1 (1.0-2.1); ALBUMIN 4.5 g/dL (3.5-5.0); ALT/SGPT 17 U/L (9-52); AST/SGOT 27 U/L (14-36); BLOOD UREA NITROGEN 29 mg/dL (7-17); CALCIUM 9.6 mg/dl (8.6-10.4); GFR NON-AFRICAN AMERICAN 50
[2018-06-11] MEDS ORDERED: Piperacillin/Tazobact 3.375 gm 100 ML IV STA (15:10)
[2018-06-11] MEDS ORDERED: Piperacillin/Tazobact 3.375 gm 100 ML IVPB ONE ×2 (15:17→20:05)
--- NOTE | 2018-06-11 16:19 | CP.PCM.HP ---
History of Present Illness - History of Present Illness History of Present Illness: HOSPITALIST SERVICE cc my foot hurts help me HPI: 62 year old female presents to clinic with PMHx of DM, HLD, HTN, Depression was seen and evaluated for left hallux wound that is 2 weeks old. States that she had a callus which she pulled off and developed a wound. She describes it as numbness in the great toe and pain in the ankle that radiates up the left calf. Patient states that she saw her mannequin wig maker Dr. Martinez who prescribed her Keflex 500mg on 06/05. She returned to the office this past Monday and he advised her to come to the hospital for IV abx. Patient states that she got x-rays and was told that she may have bone infection. Patient also admits to recent falls for the last two weeks Denies of recent F/C/SOB/CP/headache. Patient denies of any pain to her foot today. Denies of any other pedal complains at this time. ROS POS+ chills, dizzy, dysphagia, clavicular pain, hard stools, hemmrhoids, leg pain, swelling, back pain, loss of appetite NEG- fever, sob, cp, cough, sick contacts, PMD: Dr. Kenney Podiatry: Juan PMHx: HTN, HLD, DM, depression, anxiety, and vertigo SurgHx: L knee surgery x2; c section 1995 FamHx: Mother- colon and breast cancer; sister-breast cancer SocHx: denies tobacco, alcohol, and drug use; lives with son, Manuel, in . allergies: anesthetics, ibuprofen, morphine, nsaids, codeine Medications: Metformin 1000mg PO BID, Glimepiride 2mg PO BID, Pravastatin 10mg PO daily, Lidinopril 10mg QD Present on Admission - Present on Admission Any Indicators Present on Admission: No Review of Systems - Constitutional Constitutional: Chills - EENT Eyes: absent: Loss of Vision Nose/Mouth/Throat: absent: Sore Throat, Neck Pain - Cardiovascular Cardiovascular: absent: Chest Pain, Lightheadedness - Respiratory Respiratory: absent: Cough, Hemoptysis, Pain with Coughing - Gastrointestinal Gastrointestinal: Dysphagia. absent: Diarrhea, Nausea, Vomiting - Genitourinary Genitourinary: absent: Dysuria - Musculoskeletal Musculoskeletal: Arthralgias (L ankle), Joint Swelling (L ankle and metatarsals) - Integumentary Integumentary: absent: Rash, Sores - Neurological Neurological: absent: Headaches - Psychiatric Psychiatric: Depression Past Patient History - Infectious Disease Hx of Infectious Diseases: None - Past Medical History & Family History Past Medical History?: Yes - Past Social History Smoking Status: Former Smoker - CARDIAC Hx Hypercholesterolemia: Yes Hx Hypertension: Yes - PULMONARY Hx Tuberculosis: No - NEUROLOGICAL Hx Seizures: No - HEENT Hx HEENT Problems: No - ENDOCRINE/METABOLIC Hx Endocrine Disorders: Yes Hx Diabetes Mellitus Type 2: Yes - HEMATOLOGICAL/ONCOLOGICAL Hx Human Immunodeficiency Virus (HIV): No - INTEGUMENTARY Hx Dermatological Problems: Yes - MUSCULOSKELETAL/RHEUMATOLOGICAL Hx Arthritis: Yes (L KNEE) - GASTROINTESTINAL Hx Gastrointestinal Disorders: No - GENITOURINARY/GYNECOLOGICAL Hx Sexually Transmitted Disorders: No - PSYCHIATRIC Hx Anxiety: Yes Hx Depression: Yes Hx Substance Use: No - SURGICAL HISTORY Hx Surgeries: Yes Hx Section: Yes Hx Musculoskeletal Surgery: Yes (Left knee surgery x2) - ANESTHESIA Hx Anesthesia: Yes Hx Anesthesia Reactions: Yes Hx Malignant Hyperthermia: No Meds Allergies/Adverse Reactions: Allergies Allergy/AdvReac Type Severity Reaction Status Date / Time Anesthetics - Amide Type Allergy Severe Verified 06/11/18 14:04 ibuprofen [From Motrin] Allergy Severe SWELLING Verified 06/11/18 14:04 morphine Allergy Severe ANAPHYLAXIS Verified 06/11/18 14:04 NSAIDS (Non-Steroidal Allergy Severe SWELLING Verified 06/11/18 14:04 Anti-Inflamma codeine Allergy Intermediate Verified 06/11/18 14:04 Physical Exam - Constitutional Appears: Well, Non-toxic, No Acute Distress - Head Exam Head Exam: ATRAUMATIC, NORMAL INSPECTION - Eye Exam Eye Exam: EOMI, Normal appearance. absent: Scleral icterus - ENT Exam ENT Exam: Mucous Membranes Moist, Normal Oropharynx - Neck Exam Neck exam: Positive for: Normal Inspection. Negative for: Tenderness, Thyromegaly - Respiratory Exam Respiratory Exam: Clear to Auscultation Bilateral, NORMAL BREATHING PATTERN - Cardiovascular Exam Cardiovascular Exam: RRR, +S1, +S2 - GI/Abdominal Exam GI & Abdominal Exam: Soft. absent: Firm, Rigid, Tenderness - Extremities Exam Extremities exam: Positive for: calf tenderness, pedal edema, tenderness (L ankle ), pedal pulses present - Expanded Lower Extremities Exam Left Lower Leg Exam: Alhaji's sign Foot/Toe exam: swelling (2x2cm ulcera medial aspect of great toe, nontender, nonerythematous, no bleed) - Back Exam Back exam: absent: CVA tenderness (R) - Neurological Exam Neurological exam: Alert, CN II-XII Intact, Oriented x3 - Psychiatric Exam Psychiatric exam: Normal Affect, Normal Mood - Skin Skin Exam: Normal Color, Warm Results - Vital Signs Recent Vital Signs: Last Vital Signs Temp 98 F 06/11/18 13:59 Pulse 87 06/11/18 13:59 Resp 20 06/11/18 13:59 BP 137/66 06/11/18 13:59 Pulse Ox 98 06/11/18 16:10 - Labs Result Diagrams: 06/11/18 14:34 06/11/18 14:34 Labs: Laboratory Results - last 24 hr 06/11/18 06/11/18 06/11/18 14:34 14:34 14:34 WBC 9.1 RBC 3.71 L Hgb 11.2 Hct 32.9 L MCV 88.7 MCH 30.1 MCHC 34.0 RDW 13.6 Plt Count 233 MPV 6.8 L Neut % (Auto) 54.5 Lymph % (Auto) 35.8 Jackson % (Auto) 6.7 Eos % (Auto) 2.2 Baso % (Auto) 0.8 Neut # (Auto) 5.0 Lymph # (Auto) 3.3 Jackson # (Auto) 0.6 Eos # (Auto) 0.2 Baso # (Auto) 0.1 PT 11.9 INR 1.1 APTT 32 Sodium 139 Potassium 4.4 Chloride 101 Carbon Dioxide 28 Anion Gap 15 BUN 29 H Creatinine 1.1 Est GFR ( Amer) > 60 Est GFR (Non-Af Amer) 50 Random Glucose 54 L Calcium 9.6 Total Bilirubin 0.5 AST 27 ALT 17 Alkaline Phosphatase 68 Total Protein 8.5 H Albumin 4.5 Globulin 4.0 H Albumin/Globulin Ratio 1.1 Urine Color Urine Clarity Urine pH Ur Specific [place] Urine Protein Urine Glucose (UA) Urine Ketones Urine Blood Urine Nitrate Urine Bilirubin Urine Urobilinogen Ur Leukocyte Esterase Urine WBC (Auto) Urine RBC (Auto) Ur Squamous Epith Cells 06/11/18 14:36 WBC RBC Hgb Hct MCV MCH MCHC RDW Plt Count MPV Neut % (Auto) Lymph % (Auto) Jackson % (Auto) Eos % (Auto) Baso % (Auto) Neut # (Auto) Lymph # (Auto) Jackson # (Auto) Eos # (Auto) Baso # (Auto) PT INR APTT Sodium Potassium Chloride Carbon Dioxide Anion Gap BUN Creatinine Est GFR ( Amer) Est GFR (Non-Af Amer) Random Glucose Calcium Total Bilirubin AST ALT Alkaline Phosphatase Total Protein Albumin Globulin Albumin/Globulin Ratio Urine Color Yellow Urine Clarity Clear Urine pH 5.0 Ur Specific [place] 1.019 Urine Protein Negative Urine Glucose (UA) Normal Urine Ketones Negative Urine Blood 1+ H Urine Nitrate Negative Urine Bilirubin Negative Urine Urobilinogen 2.0 H Ur Leukocyte Esterase Neg Urine WBC (Auto) 2 Urine RBC (Auto) 4 H Ur Squamous Epith Cells 2 Assessment & Plan - Assessment and Plan (Free Text) Assessment: 62 F with a PMHx of htn, hld, dm, depression and vertigo presents to the ED after sent in from Dr Martinez mannequin wig maker for her L toe wound and ankle pain ascending Plan: Diabetic Foot Ulcer IV Vanco and Zosyn given in ED Starting IV Vanco 1g q12 (trough jun 13 230AM) Starting IV Zosyn 3.375mg q6 Dr Martinez Podiatry consulted- recs appreciated f/u MRI L foot Bactroban topical f/u wound cultures ID consult - Dr. Kennedy f/u recs Betadine with compression wrap Afebrile- monitor vitals Fall Risk Precautions Hx of Hypertension Lisinopril 10mg PO QD Monitor BP Hx of DM Metformin Hold Glipizide hold Hypoglycemic Protocol Maintain euglycemia 120-140s f/u A1C Accuchex ACHS Low Dose- ISS f/u EKG Hx of HLD Crestor 2.5mg PO HS f/u Lipid Panel PPX Heparin 5000u sc q8 GI not indicated florastor 250 PO BID- do not give within 2 hrs of antibiotics PT/OT eval and treat Dispo: Pt seen by podiatry, pending MRI results, pending cultures and sensitivities
--- NOTE | 2018-06-11 16:35 | CP.PCM.CON ---
History of Present Illness - History of Present Illness History of Present Illness: Podiatry Consult Note: Dr. Martinez 62 year old female presents to clinic with PMHx of DM, HLD, HTN, Depression was seen and evaluated for left hallux wound. Patient reports that she's had the wound for approx 2 weeks. States that she had a callus which she pulled off and developed a wound. Patient states that she saw her cable hooker Dr. Martinez who advised her to come to the hospital for IV abx. Patient states that she got x- rays and was told that she may have bone infection. Patient states that she had little vomiting yesterday. Denies of recent F/C/SOB/CP/headache. Patient denies of any pain to her foot today. Denies of any other pedal complains at this time. PMHx: DM, HLD, HTN, Depression PSHx: Allergies: Ibuprofen, Amide anesthetics, morphine SHx: Former smoker, Denies EtOH or illicit drug usage Review of Systems - Constitutional Constitutional: As Per HPI Past Patient History - Infectious Disease Hx of Infectious Diseases: None - Past Medical History & Family History Past Medical History?: Yes - Past Social History Smoking Status: Former Smoker - CARDIAC Hx Hypercholesterolemia: Yes Hx Hypertension: Yes - PULMONARY Hx Tuberculosis: No - NEUROLOGICAL Hx Seizures: No - HEENT Hx HEENT Problems: No - ENDOCRINE/METABOLIC Hx Endocrine Disorders: Yes Hx Diabetes Mellitus Type 2: Yes - HEMATOLOGICAL/ONCOLOGICAL Hx Human Immunodeficiency Virus (HIV): No - INTEGUMENTARY Hx Dermatological Problems: Yes - MUSCULOSKELETAL/RHEUMATOLOGICAL Hx Arthritis: Yes (L KNEE) - GASTROINTESTINAL Hx Gastrointestinal Disorders: No - GENITOURINARY/GYNECOLOGICAL Hx Sexually Transmitted Disorders: No - PSYCHIATRIC Hx Anxiety: Yes Hx Depression: Yes Hx Substance Use: No - SURGICAL HISTORY Hx Surgeries: Yes Hx Section: Yes Hx Musculoskeletal Surgery: Yes (Left knee surgery x2) - ANESTHESIA Hx Anesthesia: Yes Hx Anesthesia Reactions: Yes Hx Malignant Hyperthermia: No Meds Allergies/Adverse Reactions: Allergies Allergy/AdvReac Type Severity Reaction Status Date / Time Anesthetics - Amide Type Allergy Severe Verified 06/11/18 14:04 ibuprofen [From Motrin] Allergy Severe SWELLING Verified 06/11/18 14:04 morphine Allergy Severe ANAPHYLAXIS Verified 06/11/18 14:04 NSAIDS (Non-Steroidal Allergy Severe SWELLING Verified 06/11/18 14:04 Anti-Inflamma codeine Allergy Intermediate Verified 06/11/18 14:04 - Medications Medications: Current Medications Vancomycin HCl 1 gm/ Sodium (Chloride) 250 mls @ 166.7 mls/hr IVPB STAT STA; Protocol Stop: 06/11/18 16:38 Physical Exam - Constitutional Appears: Well, Non-toxic, No Acute Distress - Extremities Exam Additional comments: Bilateral LE exam: VASC: DP/PT pulses are are palpable 1/4, Cap refill time: < 3 sec to all digits, Temp gradient: warm to warm from proximal to distal on the LLE, Non-pitting edema with erythema noted on the LLE distal to ankle joint, no pitting or non- pitting edema noted on the right DERM: Wound measuring approx 2 cm x 2 cm x 0.1 cm on the medial aspect of the left hallux at the IPJ, wound base is mainly grannular with islands of fibrosis, kd-wound erythema, no active drainage, no malodor, no tunneling, no undermining, no probe to bone, hyperkerototic lesion noted on the medial aspect of the IPJ of the right hallux, no clinical suspicion of active infection NEURO: Protective sensation mildly diminished ORTHO: No pain on palpation of the hallux wound, MMT: 5/5 in all 4 direction at the ankle joint, mild pain during DF and PF during AROM and PROM at the left ankle - Neurological Exam Neurological exam: Alert, Oriented x3 - Psychiatric Exam Psychiatric exam: Normal Affect, Normal Mood Results - Vital Signs Recent Vital Signs: Last Vital Signs Temp 98 F 06/11/18 13:59 Pulse 87 06/11/18 13:59 Resp 20 06/11/18 13:59 BP 137/66 06/11/18 13:59 Pulse Ox 98 06/11/18 16:10 - Labs Result Diagrams: 06/11/18 14:34 06/11/18 14:34 Labs: Laboratory Results - last 24 hr 06/11/18 06/11/18 06/11/18 14:34 14:34 14:34 WBC 9.1 RBC 3.71 L Hgb 11.2 Hct 32.9 L MCV 88.7 MCH 30.1 MCHC 34.0 RDW 13.6 Plt Count 233 MPV 6.8 L Neut % (Auto) 54.5 Lymph % (Auto) 35.8 [place] % (Auto) 6.7 Eos % (Auto) 2.2 Baso % (Auto) 0.8 Neut # (Auto) 5.0 Lymph # (Auto) 3.3 [place] # (Auto) 0.6 Eos # (Auto) 0.2 Baso # (Auto) 0.1 PT 11.9 INR 1.1 APTT 32 Sodium 139 Potassium 4.4 Chloride 101 Carbon Dioxide 28 Anion Gap 15 BUN 29 H Creatinine 1.1 Est GFR ( Amer) > 60 Est GFR (Non-Af Amer) 50 Random Glucose 54 L Calcium 9.6 Total Bilirubin 0.5 AST 27 ALT 17 Alkaline Phosphatase 68 Total Protein 8.5 H Albumin 4.5 Globulin 4.0 H Albumin/Globulin Ratio 1.1 Urine Color Urine Clarity Urine pH Ur Specific [place] Urine Protein Urine Glucose (UA) Urine Ketones Urine Blood Urine Nitrate Urine Bilirubin Urine Urobilinogen Ur Leukocyte Esterase Urine WBC (Auto) Urine RBC (Auto) Ur Squamous Epith Cells 06/11/18 14:36 WBC RBC Hgb Hct MCV MCH MCHC RDW Plt Count MPV Neut % (Auto) Lymph % (Auto) [place] % (Auto) Eos % (Auto) Baso % (Auto) Neut # (Auto) Lymph # (Auto) [place] # (Auto) Eos # (Auto) Baso # (Auto) PT INR APTT Sodium Potassium Chloride Carbon Dioxide Anion Gap BUN Creatinine Est GFR ( Amer) Est GFR (Non-Af Amer) Random Glucose Calcium Total Bilirubin AST ALT Alkaline Phosphatase Total Protein Albumin Globulin Albumin/Globulin Ratio Urine Color Yellow Urine Clarity Clear Urine pH 5.0 Ur Specific [place] 1.019 Urine Protein Negative Urine Glucose (UA) Normal Urine Ketones Negative Urine Blood 1+ H Urine Nitrate Negative Urine Bilirubin Negative Urine Urobilinogen 2.0 H Ur Leukocyte Esterase Neg Urine WBC (Auto) 2 Urine RBC (Auto) 4 H Ur Squamous Epith Cells 2 Assessment & Plan - Assessment and Plan (Free Text) Assessment: 62 year old female evaluated for left hallux wound (saenz 1) - infected Plan: Patient seen and evaluated Discussed plan with attending Dr. Martinez Labs, vitals and charts reviewed - VSS, WBC @ 9.1 Foot X-rays: - Demonstrates erosion/fragmentation on medial proximal aspect of the 1st distal phalanx possibly consistent with OM MRI ordered Bactroban ordered Wound cultures left hallux: Pending ID consult - Dr. Kennedy Dressing applied using betadine, DSD, SHONA Patient may require prison IV abx treatment Thank you for the podiatry consult and allowing to take part in patient care Will continue to monitor patient while in-house - Date & Time Date: 06/11/18 Time: 16:46
--- NOTE | 2018-06-11 16:43 | RAD ---
HISTORY: Cough COMPARISON: Chest x-ray performed 01/02/18 TECHNIQUE: Chest PA and lateral FINDINGS: LUNGS: Biapical pleural thickening. No focal consolidation. Please note that chest x-ray has limited sensitivity for the detection of pulmonary masses. PLEURA: No significant pleural effusion identified. No definite pneumothorax . CARDIOVASCULAR: Heart size appears within normal limits. No atherosclerotic calcification present. OSSEOUS STRUCTURES: No acute osseous abnormality identified. VISUALIZED UPPER ABDOMEN: Unremarkable. OTHER FINDINGS: None. IMPRESSION: No acute findings identified. Incidental findings as above.
[2018-06-11] MEDS ORDERED: Vancomycin 1 GM 1 GM/250 ML BAG IVPB ONE (16:45)
[2018-06-11] MEDS ORDERED: Glucagon Recombinant 1 mg Inj IM PRN (17:24)
[2018-06-11] MEDS ORDERED: Dextrose 50% SYRINGE Inj (50 ml) IV PRN (17:24)
[2018-06-11 18:42] LABS: BARBITURATES, UR NEGATIVE (NEGATIVE); BENZODIAZEPINES, UR NEGATIVE (NEGATIVE); OPIATES, UR NEGATIVE (NEGATIVE); PHENCYCLIDINE, UR NEGATIVE (NEGATIVE)
[2018-06-11] MEDS: Piperacill/Tazo 3.375gm in Dex 3.375 GM/50 ML BAG IVPB SCH (20:19)
[2018-06-11 20:26] LABS: HDL CHOLESTEROL 40 mg/dL (30-70)
[2018-06-11 20:37] LABS: LDL CHOLESTEROL 85 mg/dL (0-129)
[2018-06-11] MEDS: Rosuvastatin Calcium 2.5 mg Tab PO SCH (22:55)
[2018-06-12] MEDS: Piperacill/Tazo 3.375gm in Dex 3.375 GM/50 ML BAG IVPB SCH ×4 (02:44→22:26)
--- NOTE | 2018-06-12 07:27 | CP.PCM.PN ---
Subjective - Date & Time of Evaluation Date of Evaluation: 06/12/18 Time of Evaluation: 07:27 - Subjective Subjective: HOSPITALIST SERVICE Pt seen and examined at bedside. Pt reports persistent ankle pain, Pt still has residual numbness in the toes. Pt denies CP SOB FC NV, she reports one bout of loose stool. Objective - Vital Signs/Intake and Output Vital Signs (last 24 hours): Temp Pulse Resp BP Pulse Ox 98.4 F 74 20 146/79 95 06/12/18 00:00 06/12/18 00:00 06/12/18 00:00 06/12/18 00:00 06/12/18 00:00 Intake and Output: 06/12/18 06/12/18 06:59 18:59 Intake Total 350 Balance 350 - Medications Medications: Current Medications Acetaminophen (Tylenol 325mg Tab) 650 mg PO Q6 PRN PRN Reason: Pain, moderate (4-7) Dextrose (Dextrose 50% Inj) 0 ml IV STAT PRN; Protocol PRN Reason: Hypoglycemia Protocol Dextrose (Glutose 15) 0 gm PO ONCE PRN; Protocol PRN Reason: Hypoglycemia Protocol Glucagon (Glucagen Diagnostic Kit) 0 mg IM STAT PRN; Protocol PRN Reason: Hypoglycemia Protocol Heparin Sodium (Porcine) (Heparin) 5,000 units SC Q8 MATTHEW Last Admin: 06/12/18 05:32 Dose: 5,000 units Dextrose (Dextrose 5% In Water 1000 Ml) 1,000 mls @ 0 mls/hr IV .Q0M PRN; Protocol PRN Reason: Hypoglycemia Protocol Piperacillin Sod/Tazobactam Sod (Zosyn 3.375 Gm Iv Premix) 3.375 gm in 50 mls @ 100 mls/hr IVPB Q6H MATTHEW; Protocol Last Admin: 06/12/18 02:44 Dose: 100 mls/hr Vancomycin HCl 1,000 mg/ (Sodium Chloride) 250 mls @ 166.6 mls/hr IVPB Q12H MATTHEW; Protocol Last Admin: 06/12/18 03:27 Dose: 166.6 mls/hr Insulin Human Regular (Novolin R) 0 unit SC ACHS MATTHEW; Protocol Lisinopril (Zestril) 10 mg PO DAILY MATTHEW Mupirocin (Bactroban Ointment) 0 gm EXT DAILY MATTHEW Rosuvastatin Calcium (Crestor) 2.5 mg PO HS MATTHEW Last Admin: 12/03/18 22:55 Dose: 2.5 mg - Labs Labs: 06/11/18 14:34 06/11/18 14:34 PT 11.9 SECONDS (9.7-12.2) 06/11/18 14:34 INR 1.1 06/11/18 14:34 APTT 32 SECONDS (21-34) 06/11/18 14:34 - Additional Findings Additional findings: - Constitutional Appears: Well, Non-toxic, No Acute Distress - Head Exam Head Exam: ATRAUMATIC, NORMAL INSPECTION - Eye Exam Eye Exam: EOMI, Normal appearance. absent: Scleral icterus - ENT Exam ENT Exam: Mucous Membranes Moist, Normal Oropharynx - Neck Exam Neck exam: Positive for: Normal Inspection. Negative for: Tenderness, Thyromegaly - Respiratory Exam Respiratory Exam: Clear to Auscultation Bilateral, NORMAL BREATHING PATTERN - Cardiovascular Exam Cardiovascular Exam: RRR, +S1, +S2 - GI/Abdominal Exam GI & Abdominal Exam: Soft. absent: Firm, Rigid, Tenderness - Extremities Exam Extremities exam: Positive for: calf tenderness, pedal edema, tenderness (L ankle ), pedal pulses present - Expanded Lower Extremities Exam Left Lower Leg Exam: Alhaji's sign Foot/Toe exam: swelling (2x2cm ulcera medial aspect of great toe, nontender, nonerythematous, no bleed) - Back Exam Back exam: absent: CVA tenderness (R) - Neurological Exam Neurological exam: Alert, CN II-XII Intact, Oriented x3 - Psychiatric Exam Psychiatric exam: Normal Affect, Normal Mood - Skin Skin Exam: Normal Color, Warm Assessment and Plan - Assessment and Plan (Free Text) Assessment: 62 F with a PMHx of htn, hld, dm, depression and vertigo presents to the ED after 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 Kennedy f/u recs Betadine with compression wrap Afebrile- monitor vitals Fall Risk Precautions LE duplex neg for DVT GAMALIEL normal Hx of Hypertension Lisinopril 10mg PO QD Monitor BP Hx of DM Metformin Hold Glipizide hold Hypoglycemic Protocol Maintain euglycemia 120-140s 6.1 A1C Accuchex ACHS Low Dose- ISS EKG Hx of HLD Crestor 2.5mg PO HS Normal Lipid Panel PPX Heparin 5000u sc q8 GI not indicated florastor 250 PO BID- do not give within 2 hrs of antibiotics PT/OT eval and treat Dispo: Pt seen by podiatry, pending MRI results, pending cultures and sensitivities
[2018-06-12] MEDS: (Novolin R) Insulin Human Regular 100 units/ml vial SC SCH ×4 (07:40→22:26)
[2018-06-12 07:53] LABS: BASO # 0.1 K/uL (0.0-0.2); EOS # 0.4 K/uL (0.0-0.7); EOS % 4.9 % (0.0-4.0); HEMOGLOBIN 10.4 g/dL (11.0-16.0); LYMPH # 2.6 K/uL (1.0-4.3); LYMPH % 36.1 % (20.0-40.0); MEAN CELL VOLUME 88.6 fL (81.0-99.0); MEAN CORPUSCULAR HEMOGLOBIN 30.5 pg (27.0-31.0); MEAN CORPUSCULAR HGB CONC 34.4 g/dL (33.0-37.0); MONO # 0.5 K/uL (0.0-0.8); MONO % 6.8 % (0.0-10.0); NEUT # 3.7 K/uL (1.8-7.0); NEUT % 51.2 % (50.0-75.0); RBC 3.4 Mil/uL (3.80-5.20); RED CELL DISTRIBUTION WIDTH 13.6 % (11.5-14.5); WHITE BLOOD COUNT 7.2 K/uL (4.8-10.8)
[2018-06-12 08:13] LABS: ALB/GLOB RATIO 1.1 (1.0-2.1); ALBUMIN 3.9 g/dL (3.5-5.0)
[2018-06-12] MEDS: Saccharomyces Boulardi 250 mg Cap PO SCH ×2 (11:35→18:48)
--- NOTE | 2018-06-12 12:01 | CP.PCM.PN ---
Subjective - Date & Time of Evaluation Date of Evaluation: 06/12/18 Time of Evaluation: 11:57 - Subjective Subjective: Podiatry Progress note: Dr. Martinez 62 year old female seen and evaluated at bedside for left hallux wound. Patient is AAOx3 and appears in NAD. Complains of ankle pain today. No new pedal complains. Denies of recent F/N/V/C/SOB/CP. Objective - Vital Signs/Intake and Output Vital Signs (last 24 hours): Temp Pulse Resp BP Pulse Ox 97.8 F 89 20 125/71 94 L 06/12/18 07:30 06/12/18 11:32 06/12/18 07:30 06/12/18 11:32 06/12/18 07:30 Intake and Output: 06/12/18 06/12/18 06:59 18:59 Intake Total 350 Balance 350 - Medications Medications: Current Medications Acetaminophen (Tylenol 325mg Tab) 650 mg PO Q6 PRN PRN Reason: Pain, moderate (4-7) Dextrose (Dextrose 50% Inj) 0 ml IV STAT PRN; Protocol PRN Reason: Hypoglycemia Protocol Dextrose (Glutose 15) 0 gm PO ONCE PRN; Protocol PRN Reason: Hypoglycemia Protocol Glucagon (Glucagen Diagnostic Kit) 0 mg IM STAT PRN; Protocol PRN Reason: Hypoglycemia Protocol Heparin Sodium (Porcine) (Heparin) 5,000 units SC Q8 MATTHEW Last Admin: 06/12/18 05:32 Dose: 5,000 units Dextrose (Dextrose 5% In Water 1000 Ml) 1,000 mls @ 0 mls/hr IV .Q0M PRN; Protocol PRN Reason: Hypoglycemia Protocol Piperacillin Sod/Tazobactam Sod (Zosyn 3.375 Gm Iv Premix) 3.375 gm in 50 mls @ 100 mls/hr IVPB Q6H MATTHEW; Protocol Last Admin: 06/12/18 11:00 Dose: Not Given Vancomycin HCl 1,000 mg/ (Sodium Chloride) 250 mls @ 166.6 mls/hr IVPB Q12H MATTHEW; Protocol Last Admin: 06/12/18 03:27 Dose: 166.6 mls/hr Insulin Human Regular (Novolin R) 0 unit SC ACHS MATTHEW; Protocol Last Admin: 06/12/18 11:36 Dose: Not Given Lisinopril (Zestril) 10 mg PO DAILY MATTHEW Last Admin: 06/12/18 11:33 Dose: 10 mg Mupirocin (Bactroban Ointment) 0 gm EXT DAILY [facility] Rosuvastatin Calcium (Crestor) 2.5 mg PO HS [facility] Last Admin: 06/11/18 22:55 Dose: 2.5 mg Saccharomyces Boulardii (Florastor) 250 mg PO BID [facility] Last Admin: 06/12/18 11:35 Dose: 250 mg - Labs Labs: 06/12/18 07:39 06/12/18 07:39 PT 11.9 SECONDS (9.7-12.2) 06/11/18 14:34 INR 1.1 06/11/18 14:34 APTT 32 SECONDS (21-34) 06/11/18 14:34 - Constitutional Appears: Well, Non-toxic, No Acute Distress - Extremities Exam Additional comments: Bilateral LE exam: VASC: DP/PT pulses are are palpable 1/4, Cap refill time: < 3 sec to all digits, Temp gradient: warm to warm from proximal to distal on the LLE, Non-pitting edema with erythema noted on the LLE distal to ankle joint, no pitting or non- pitting edema noted on the right DERM: Wound measuring approx 2 cm x 2 cm x 0.1 cm on the medial aspect of the left hallux at the IPJ, wound base is mainly grannular with islands of fibrosis, kd-wound erythema, no active drainage, no malodor, no tunneling, no undermining, no probe to bone, hyperkerototic lesion noted on the medial aspect of the IPJ of the right hallux, no clinical suspicion of active infection NEURO: Protective sensation mildly diminished ORTHO: No pain on palpation of the hallux wound, MMT: 5/5 in all 4 direction at the ankle joint, mild pain during DF and PF during AROM and PROM at the left ankle - Neurological Exam Neurological Exam: Alert, Awake, Oriented x3 - Psychiatric Exam Psychiatric exam: Normal Affect, Normal Mood Assessment and Plan - Assessment and Plan (Free Text) Assessment: 62 year old female evaluated for left hallux wound (saenz 1) - infected Plan: Patient seen and evaluated Discussed plan with attending Dr. Martinez Labs, vitals and charts reviewed - VSS, WBC @ 7.2 Foot X-rays: - Demonstrates erosion/fragmentation on medial proximal aspect of the 1st distal phalanx possibly consistent with OM MRI ordered - Increase in signal intensity on T2 as well as on STIR image at the distal phalanx of the left halluix consistent with OM - Pending final read GAMALIEL/PVR: - R: 1.05, L: 1.06 with good waveform/amplitude - Pending final read Ankle X-rays: - Pending Wound cultures left hallux: Pending ID consult - Dr. Kennedy - IV abx as per ID Dressing applied using Bactroban, DSD Patient may require mcfp IV abx treatment Will continue to monitor patient while in-house
--- NOTE | 2018-06-12 13:20 | VASCLAB ---
Date of service: 06/12/2018 STUDY DESCRIPTION: Lower Extremity Arterial Exam (PVR). HISTORY: Pain, numbness, assess blood flow. PRIORS: None. TECHNIQUE: Pulse volume recording waveforms and segmental pressures of bilateral lower extremities at multiple levels were obtained. Ankle Brachial Indices (ABIs) were calculated. Report prepared by Max Whitfield, MICHAEL, RVT RIGHT LOWER EXTREMITY: * Brachial artery: Pressure - 142 mmHg. * High thigh: Pressure - 220 mmHg: Ratio - NC: PVR waveform - Pulsatile * Low thigh: Pressure - 181 mmHg: Ratio - 1.27 PVR waveform: Pulsatile * Calf: Pressure - 163 mmHg: Ratio - 1.15 PVR waveform: Pulsatile * Posterior tibial Artery: Pressure - 140 mmHg: Ratio - 0.99 PVR waveform: Pulsatile * Dorsalis pedis Artery: Pressure - 149 mmHg: Ratio - 1.05 PVR waveform: Pulsatile * Great toe: Pressure - mmHg: Ratio - PVR waveform: Ankle brachial index (GAMALIEL): 1.05 LEFT LOWER EXTREMITY: * Brachial artery: Pressure - 129 mmHg. * High thigh: Pressure - 220 mmHg: Ratio - NC: PVR waveform - Pulsatile * Low thigh: Pressure - 172 mmHg: Ratio - 1.21 PVR waveform: Pulsatile * Calf: Pressure - 172 mmHg: Ratio - 1.21 PVR waveform: Pulsatile * Posterior tibial Artery: Pressure - 150 mmHg: Ratio - 1.06 PVR waveform: Pulsatile * Dorsalis pedis Artery: Pressure - 139 mmHg: Ratio - 0.99 PVR waveform: Pulsatile * Great toe: Pressure - mmHg: Ratio - PVR waveform: Ankle brachial index (GAMALIEL): 1.06 OTHER FINDINGS: Right: Left: IMPRESSION: Right: There was no evidence of hemodynamically significant arterial insufficiency in the right lower extremity. Left: There was no evidence of hemodynamically significant arterial insufficiency in the left lower extremity.
--- NOTE | 2018-06-12 13:22 | VASCLAB ---
Date of service: 06/12/2018 PROCEDURE: Lower Extremity Venous Duplex Exam. HISTORY: Left calf tenderness, swelling r/o DVT PRIORS: None. TECHNIQUE: Bilateral common femoral, femoral, popliteal and posterior tibial, peroneal and great saphenous veins were evaluated. Flow was assessed with color Doppler, compressibility, assessment of phasic flow and augmentation response. Report prepared by Max Whitfield, BS, RVT FINDINGS: RIGHT: 1. Common Femoral Vein: 1.1. Compressibility - Fully compressible: Thrombus - None : Flow - Phasic: Augmentation -Normal: Reflux - None. 2. Femoral Vein: 2.1. Compressibility - Fully compressible: Thrombus - None : Flow - Phasic: Augmentation -Normal: Reflux - None. 3. Popliteal Vein: 3.1. Compressibility - Fully compressible: Thrombus - None : Flow - Phasic: Augmentation -Normal: Reflux - None. 4. Posterior Tibial Vein: 4.1. Compressibility - Fully compressible: Thrombus - None: Flow - Phasic: Augmentation -Normal: Reflux - None. 5. Peroneal Vein: 5.1. Compressibility - Fully compressible: Thrombus - None: Flow - Phasic: Augmentation -Normal: Reflux - None. 6. Great Saphenous Vein: 6.1. Compressibility - Fully compressible: Thrombus - None: Flow - Phasic: Augmentation - Normal: Reflux - None. LEFT: 1. Common Femoral Vein: 1.1. Compressibility - Fully compressible: Thrombus - None: Flow - Phasic: Augmentation -Normal: Reflux - None. 2. Femoral Vein: 2.1. Compressibility - Fully compressible: Thrombus - None: Flow - Phasic: Augmentation -Normal: Reflux - None. 3. Popliteal Vein: 3.1. Compressibility - Fully compressible: Thrombus - None : Flow - Phasic: Augmentation -Normal: Reflux - None. 4. Posterior Tibial Vein: 4.1. Compressibility - Fully compressible: Thrombus - None: Flow - Phasic: Augmentation -Normal: Reflux - None. 5. Peroneal Vein: 5.1. Compressibility - Fully compressible: Thrombus - None: Flow - Phasic: Augmentation -Normal: Reflux - None. 6. Great Saphenous Vein: 6.1. Compressibility - Fully compressible: Thrombus - None: Flow - Phasic: Augmentation - Normal: Reflux - None. OTHER FINDINGS: Right: None significant. Left: None significant. IMPRESSION: Right: No evidence of deep or superficial vein thrombosis of the right lower extremity. Normal valve function noted of the right side. Left: No evidence of deep or superficial vein thrombosis of the left lower extremity. Normal valve function noted of the left side.
--- NOTE | 2018-06-12 14:12 | MRI ---
MRI left forefoot History: Ulceration. Evaluate for osteomyelitis. COMPARISON: X-ray dated 06/06/2018 Findings: Soft tissue ulceration at the level of the 1st distal phalanx. Signal abnormality within the 1st distal phalanx with patchy decreased T1 signal and increased STIR signal concerning for an acute osteomyelitis. Extensive signal abnormality seen throughout the 1st metatarsal bone extending from the level of the distal metatarsal shaft to the base as well as throughout the 2nd metatarsal bone and base of the 3rd metatarsal bone. Additional signal abnormality seen within the medial mid and middle cuneiform bones as well as the navicular bone all demonstrating decreased T1 signal and increased STIR signal. These findings may be the sequelae of an acute infectious process possibly superimposed acute on chronic infectious process such as an acute on chronic osteomyelitis. Additional considerations may be the sequelae of an acute inflammatory and or neuropathic process and or additional etiology. Clinical correlation. Suggestion of cortical irregularity and or bony fragmentation seen at the lateral base of the 1st metatarsal bone as well as at the volar base of the 2nd metatarsal bone which may represent subchondral fracturing and or subchondral osseous injury. Apparent disruption / tearing of the Lisfranc ligament at that level. Hallux valgus deformity. Mild reactive edema seen at the head of the 1st proximal phalanx. Impression: 1. Soft tissue ulceration at the level of the 1st distal phalanx. Signal abnormality within the 1st distal phalanx with patchy decreased T1 signal and increased STIR signal concerning for an acute osteomyelitis. 2. Extensive signal abnormality seen throughout the 1st metatarsal bone extending from the level of the distal metatarsal shaft to the base as well as throughout the 2nd metatarsal bone and base of the 3rd metatarsal bone. Additional signal abnormality seen within the medial mid and middle cuneiform bones as well as the navicular bone all demonstrating decreased T1 signal and increased STIR signal. These findings may be the sequelae of an acute infectious process possibly superimposed acute on chronic infectious process such as an acute on chronic osteomyelitis. Additional considerations may be the sequelae of an acute inflammatory and or neuropathic process and or additional etiology. Clinical correlation. 3. Suggestion of cortical irregularity and or bony fragmentation seen at the lateral base of the 1st metatarsal bone as well as at the volar base of the 2nd metatarsal bone which may represent subchondral fracturing and or subchondral osseous injury. Apparent disruption / tearing of the Lisfranc ligament at that level. 4. Hallux valgus deformity. 5. Mild reactive edema seen at the head of the 1st proximal phalanx.
--- NOTE | 2018-06-12 19:05 | CARD ---
APPROVED REPORT Date of service: 06/11/2018 EKG Measurement Heart [id number] <Conclusion> Sinus rhythm with frequent premature ventricular complexes RSR' or QR pattern in V1 suggests right ventricular conduction delay T wave abnormality, consider inferior ischemia Abnormal ECG
--- NOTE | 2018-06-12 21:33 | CP.PCM.CON ---
History of Present Illness - History of Present Illness History of Present Illness: 62 year old female admitted for left hallux wound. Patient reports that she's had the wound for approx 2 weeks. States that she had a callus which she pulled off and developed a wound. Patient states that she got x-rays and was told that she may have bone infection. PMHx: DM, HLD, HTN, Depression PSHx: Allergies: Ibuprofen, Amide anesthetics, morphine SHx: Former smoker, Denies EtOH or illicit drug usage Review of Systems - Review of Systems All systems: reviewed and no additional remarkable complaints except - Constitutional Constitutional: As Per HPI - EENT Eyes: absent: As Per HPI, Blind Spots, Blurred Vision, Change in Vision, Decreased Night Vision, Diplopia, Discharge, Dry Eye, Exophthalmos, Floaters, Irritation, Itchy Eyes, Loss of Peripheral Vision, Pain, Photophobia, Requires Corrective Lenses, Sees Flashes, Spots in Vision, Tunnel Vision, Other Visual Disturbances, Loss of Vision, Other Ears: absent: As Per HPI, Decreased Hearing, Ear Discharge, Ear Pain, Tinnitus, Abnormal Hearing, Disequilibrium, Dizziness, Other Nose/Mouth/Throat: absent: As Per HPI, Epistaxis, Nasal Congestion, Nasal Discharge, Nasal Obstruction, Nasal Trauma, Nose Pain, Post Nasal Drip, Sinus Pain, Sinus Pressure, Bleeding Gums, Change in Voice, Dental Pain, Dry Mouth, Dysphagia, Halitosis, Hoarsness, Lip Swelling, Mouth Lesions, Mouth Pain, Odynophagia, Sore Throat, Throat Swelling, Tongue Swelling, Facial Pain, Neck Pain, Neck Mass, Other - Breasts Breasts: absent: As Per HPI, Change in Shape, Mass, Pain, Nipple Discharge, Nipple Inversion, Skin Changes, Swelling, Other - Cardiovascular Cardiovascular: absent: As Per HPI, Acrocyanosis, Chest Pain, Chest Pain at Rest, Chest Pain with Activity, Claudication, Diaphoresis, Dyspnea, Dyspnea on Exertion, Edema, Irregular Heart Rhythm, Pain Radiating to Arm/Neck/Jaw, Leg Edema, Leg Ulcers, Lightheadedness, Orthopnea, Palpitations, Paroxysmal Nocturnal Dyspnea, Pedal Edema, Radiating Pain, Rapid Heart Rate, Slow Heart Rate, Syncope, Other - Respiratory Respiratory: absent: As Per HPI, Cough, Dyspnea, Hemoptysis, Dyspnea on Exertion, Wheezing, Snoring, Stridor, Pain on Inspiration, Chest Congestion, Excessive Mucous Production, Change in Mucous Color, Pain with Coughing, Other - Gastrointestinal Gastrointestinal: absent: As Per HPI, Abdominal Pain, Belching, Bloating, Change in Bowel Habits, Change in Stool Character, Coffee Ground Emesis, Constipation, Cramping, Diarrhea, Dyspepsia, Dysphagia, Early Satiety, Excessive Flatus, Fecal Incontinence, Heartburn, Hematemesis, Hematochezia, Loose Stools, Melena, Nausea, Odynophagia, Temesmus, Vomiting, Other - Genitourinary Genitourinary: absent: As Per HPI, Change in Urinary Stream, Difficulty Urinating, Dysuria, Flank Pain, Hematuria, Pyuria, Nocturia, Urinary Incontinence, Urinary Frequency, Urinary Hesitance, Urinary Urgency, Voiding Freq/Small Amts, Freq UTI, Hx Renal/Bladder Calculi, Hx /Renal Surgery, Bladder Distension, Other - Reproductive: Female Reproductive:Female: absent: As Per HPI, Amenorrhea, Amenorrhea/ Control, Currently Menstual, Cycle <21 Days, Cycle >35 Days, Cycle Variable, Menses 1-7 Days, Menses >/= 8 Days, Menses Variable, Cycle > 4 Weeks Between, No Menses for 6 Months, Heavy Menses, Light Menses, Normal Menses, Spotting Between Cycles, S/P Hysterectomy, Menopausal, Post Menopausal, Premenarche, Abnormal Vaginal Bleeding, Dysmenorrhea, Dyspareunia, Genital Lesions, Genital Pruritis, Pelvic Pain, Prolapse Symptoms, Sexual Dysfunction, Vaginal Discharge, Vaginal Dryness, Vaginal Odor, Vaginal Pruritis, Other - Menstruation Menstruation: absent: As Per HPI, Amenorrhea, Amenorrhea/ Control, Currently Menstual, Cycle <21 Days, Cycle >35 Days, Cycle Variable, Menses 1-7 Days, Menses >/= 8 Days, Menses Variable, Cycle > 4 Weeks Between, No Menses for 6 Months, Heavy Menses, Light Menses, Normal Menses, Spotting Between Cycles, S/P Hysterectomy, Menopausal, Post Menopausal, Premenarche, Abnormal Vaginal Bleeding, Dysmenorrhea, Other - Musculoskeletal Musculoskeletal: As Per HPI - Integumentary Integumentary: As Per HPI, Skin Pain, Wounds - Neurological Neurological: As Per HPI - Psychiatric Psychiatric: absent: As Per HPI, Abnormal Sleep Pattern, Anhedonia, Anxiety, Auditory Hallucinations, Behavioral Changes, Change in Appetite, Change in Libido, Confusion, Depression, Difficulty Concentrating, Hallucinations, Homi cidal Ideation, Hopelessness, Irritability, Memory Loss, Mood Swings, Panic Attacks, Paranoia, Suicidal Ideation, Visual Hallucinations, Tactile Hallucinations, Other - Endocrine Endocrine: absent: As Per HPI, Change in Body Appearance, Change in Libido, Cold Intolorance, Deepening of Voice, Excessive Sweating, Fatigue, Flushing, Heat Intolorance, Increase in Ring/Shoe/Hat Size, Palpitations, Polydipsia, Polyphagia, Polyuria, Other - Hematologic/Lymphatic Hematologic: absent: As Per HPI, Easy Bleeding, Easy Bruising, Lymphadenopathy, Other Past Patient History - Infectious Disease Hx of Infectious Diseases: None - Past Medical History & Family History Past Medical History?: Yes - Past Social History Smoking Status: Never Smoked - CARDIAC Hx Cardiac Disorders: Yes Hx Hypercholesterolemia: Yes Hx Hypertension: Yes - PULMONARY Hx Respiratory Disorders: No Hx Tuberculosis: No - NEUROLOGICAL Hx Neurological Disorder: No Hx Seizures: No - HEENT Hx HEENT Problems: No - RENAL Hx Chronic Kidney Disease: No - ENDOCRINE/METABOLIC Hx Endocrine Disorders: Yes Hx Diabetes Mellitus Type 2: Yes - HEMATOLOGICAL/ONCOLOGICAL Hx Blood Disorders: No Hx Human Immunodeficiency Virus (HIV): No - INTEGUMENTARY Hx Dermatological Problems: Yes - MUSCULOSKELETAL/RHEUMATOLOGICAL Hx Musculoskeletal Disorders: Yes Hx Arthritis: Yes (L KNEE) Hx Falls: Yes - GASTROINTESTINAL Hx Gastrointestinal Disorders: No - GENITOURINARY/GYNECOLOGICAL Hx Genitourinary Disorders: No Hx Sexually Transmitted Disorders: No - PSYCHIATRIC Hx Psychophysiologic Disorder: Yes Hx Anxiety: Yes Hx Depression: Yes Hx Substance Use: No - SURGICAL HISTORY Hx Surgeries: Yes Hx Section: Yes Hx Musculoskeletal Surgery: Yes (Left knee surgery x2) - ANESTHESIA Hx Anesthesia: Yes Hx Anesthesia Reactions: Yes Hx Malignant Hyperthermia: No Meds Allergies/Adverse Reactions: Allergies Allergy/AdvReac Type Severity Reaction Status Date / Time Anesthetics - Amide Type Allergy Severe Verified 06/11/18 14:04 ibuprofen [From Motrin] Allergy Severe SWELLING Verified 06/11/18 14:04 morphine Allergy Severe ANAPHYLAXIS Verified 06/11/18 14:04 NSAIDS (Non-Steroidal Allergy Severe SWELLING Verified 06/11/18 14:04 Anti-Inflamma codeine Allergy Intermediate Verified 06/11/18 14:04 - Medications Medications: Current Medications Acetaminophen (Tylenol 325mg Tab) 650 mg PO Q6 PRN PRN Reason: Pain, moderate (4-7) Dextrose (Dextrose 50% Inj) 0 ml IV STAT PRN; Protocol PRN Reason: Hypoglycemia Protocol Dextrose (Glutose 15) 0 gm PO ONCE PRN; Protocol PRN Reason: Hypoglycemia Protocol Glucagon (Glucagen Diagnostic Kit) 0 mg IM STAT PRN; Protocol PRN Reason: Hypoglycemia Protocol Heparin Sodium (Porcine) (Heparin) 5,000 units SC Q8 MATTHEW Last Admin: 06/12/18 05:32 Dose: 5,000 units Dextrose (Dextrose 5% In Water 1000 Ml) 1,000 mls @ 0 mls/hr IV .Q0M PRN; Protocol PRN Reason: Hypoglycemia Protocol Piperacillin Sod/Tazobactam Sod (Zosyn 3.375 Gm Iv Premix) 3.375 gm in 50 mls @ 100 mls/hr IVPB Q6H MATTHEW; Protocol Last Admin: 06/12/18 02:44 Dose: 100 mls/hr Vancomycin HCl 1,000 mg/ (Sodium Chloride) 250 mls @ 166.6 mls/hr IVPB Q12H MATTHEW; Protocol Last Admin: 06/12/18 03:27 Dose: 166.6 mls/hr Insulin Human Regular (Novolin R) 0 unit SC ACHS MATTHEW; Protocol Last Admin: 06/12/18 07:40 Dose: Not Given Lisinopril (Zestril) 10 mg PO DAILY [facility] Mupirocin (Bactroban Ointment) 0 gm EXT DAILY [facility] Rosuvastatin Calcium (Crestor) 2.5 mg PO HS [facility] Last Admin: 06/11/18 22:55 Dose: 2.5 mg Saccharomyces Boulardii (Florastor) 250 mg PO BID [facility] Physical Exam - Constitutional Appears: Non-toxic, Chronically Ill - Head Exam Head Exam: NORMOCEPHALIC - Eye Exam Eye Exam: PERRL Pupil Exam: NORMAL ACCOMODATION - ENT Exam ENT Exam: Mucous Membranes Dry, Normal Oropharynx - Neck Exam Neck exam: Positive for: Normal Inspection - Respiratory Exam Respiratory Exam: Decreased Breath Sounds - Cardiovascular Exam Cardiovascular Exam: REGULAR RHYTHM, +S1, +S2 - GI/Abdominal Exam GI & Abdominal Exam: Soft. absent: Diminished Bowel Sounds - Rectal Exam Rectal Exam: Deferred - Exam Exam: NORMAL INSPECTION - Extremities Exam Extremities exam: Positive for: full ROM Additional comments: Bilateral LE exam: VASC: DP/PT pulses are are palpable 1/4, Cap refill time: < 3 sec to all digits, Temp gradient: warm to warm from proximal to distal on the LLE, Non-pitting edema with erythema noted on the LLE distal to ankle joint, no pitting or non- pitting edema noted on the right DERM: Wound measuring approx 2 cm x 2 cm x 0.1 cm on the medial aspect of the left hallux at the IPJ, wound base is mainly grannular with islands of fibrosis, kd-wound erythema, no active drainage, no malodor, no tunneling, no undermining, no probe to bone, hyperkerototic lesion noted on the medial aspect of the IPJ of the right hallux, no clinical suspicion of active infection NEURO: Protective sensation mildly diminished ORTHO: No pain on palpation of the hallux wound, MMT: 5/5 in all 4 direction at the ankle joint, mild pain during DF and PF during AROM and PROM at the left ankle - Back Exam Back exam: absent: CVA tenderness (L), CVA tenderness (R), paraspinal tenderness - Neurological Exam Neurological exam: Alert, CN II-XII Intact, Oriented x3, Reflexes Normal - Psychiatric Exam Psychiatric exam: Normal Mood - Skin Skin Exam: Dry Results - Vital Signs Recent Vital Signs: Last Vital Signs Temp 97.8 F 06/12/18 07:30 Pulse 66 06/12/18 07:30 Resp 20 06/12/18 07:30 BP 126/85 06/12/18 07:30 Pulse Ox 94 L 06/12/18 07:30 - Labs Result Diagrams: 06/12/18 07:39 06/12/18 07:39 Labs: Laboratory Results - last 24 hr 06/11/18 06/11/18 06/11/18 14:34 14:34 14:34 WBC 9.1 RBC 3.71 L Hgb 11.2 Hct 32.9 L MCV 88.7 MCH 30.1 MCHC 34.0 RDW 13.6 Plt Count 233 MPV 6.8 L Neut % (Auto) 54.5 Lymph % (Auto) 35.8 [place] % (Auto) 6.7 Eos % (Auto) 2.2 Baso % (Auto) 0.8 Neut # (Auto) 5.0 Lymph # (Auto) 3.3 [place] # (Auto) 0.6 Eos # (Auto) 0.2 Baso # (Auto) 0.1 PT 11.9 INR 1.1 APTT 32 Sodium 139 Potassium 4.4 Chloride 101 Carbon Dioxide 28 Anion Gap 15 BUN 29 H Creatinine 1.1 Est GFR ( Amer) > 60 Est GFR (Non-Af Amer) 50 POC Glucose (mg/dL) Random Glucose 54 L Hemoglobin A1c Calcium 9.6 Phosphorus Magnesium Total Bilirubin 0.5 AST 27 ALT 17 Alkaline Phosphatase 68 Total Protein 8.5 H Albumin 4.5 Globulin 4.0 H Albumin/Globulin Ratio 1.1 Triglycerides Cholesterol LDL Cholesterol Direct HDL Cholesterol Urine Color Urine Clarity Urine pH Ur Specific [place] Urine Protein Urine Glucose (UA) Urine Ketones Urine Blood Urine Nitrate Urine Bilirubin Urine Urobilinogen Ur Leukocyte Esterase Urine WBC (Auto) Urine RBC (Auto) Ur Squamous Epith Cells Urine Opiates Screen Urine Methadone Screen Ur Barbiturates Screen Ur Phencyclidine Scrn Ur Amphetamines Screen U Benzodiazepines Scrn U Oth Cocaine Metabols U Cannabinoids Screen 06/11/18 06/11/18 06/11/18 14:36 17:17 17:19 WBC RBC Hgb Hct MCV MCH MCHC RDW Plt Count MPV Neut % (Auto) Lymph % (Auto) [place] % (Auto) Eos % (Auto) Baso % (Auto) Neut # (Auto) Lymph # (Auto) [place] # (Auto) Eos # (Auto) Baso # (Auto) PT INR APTT Sodium Potassium Chloride Carbon Dioxide Anion Gap BUN Creatinine Est GFR ( Amer) Est GFR (Non-Af Amer) POC Glucose (mg/dL) 43 L 44 L Random Glucose Hemoglobin A1c Calcium Phosphorus Magnesium Total Bilirubin AST ALT Alkaline Phosphatase Total Protein Albumin Globulin Albumin/Globulin Ratio Triglycerides Cholesterol LDL Cholesterol Direct HDL Cholesterol Urine Color Yellow Urine Clarity Clear Urine pH 5.0 Ur Specific [place] 1.019 Urine Protein Negative Urine Glucose (UA) Normal Urine Ketones Negative Urine Blood 1+ H Urine Nitrate Negative Urine Bilirubin Negative Urine Urobilinogen 2.0 H Ur Leukocyte Esterase Neg Urine WBC (Auto) 2 Urine RBC (Auto) 4 H Ur Squamous Epith Cells 2 Urine Opiates Screen Urine Methadone Screen Ur Barbiturates Screen Ur Phencyclidine Scrn Ur Amphetamines Screen U Benzodiazepines Scrn U Oth Cocaine Metabols U Cannabinoids Screen 06/11/18 06/11/18 06/11/18 18:19 18:30 19:32 WBC RBC Hgb Hct MCV MCH MCHC RDW Plt Count MPV Neut % (Auto) Lymph % (Auto) [place] % (Auto) Eos % (Auto) Baso % (Auto) Neut # (Auto) Lymph # (Auto) [place] # (Auto) Eos # (Auto) Baso # (Auto) PT INR APTT Sodium Potassium Chloride Carbon Dioxide Anion Gap BUN Creatinine Est GFR ( Amer) Est GFR (Non-Af Amer) POC Glucose (mg/dL) 103 150 H Random Glucose Hemoglobin A1c Calcium Phosphorus Magnesium Total Bilirubin AST ALT Alkaline Phosphatase Total Protein Albumin Globulin Albumin/Globulin Ratio Triglycerides Cholesterol LDL Cholesterol Direct HDL Cholesterol Urine Color Urine Clarity Urine pH Ur Specific [place] Urine Protein Urine Glucose (UA) Urine Ketones Urine Blood Urine Nitrate Urine Bilirubin Urine Urobilinogen Ur Leukocyte Esterase Urine WBC (Auto) Urine RBC (Auto) Ur Squamous Epith Cells Urine Opiates Screen Negative Urine Methadone Screen Negative Ur Barbiturates Screen Negative Ur Phencyclidine Scrn Negative Ur Amphetamines Screen Negative U Benzodiazepines Scrn Negative U Oth Cocaine Metabols Negative U Cannabinoids Screen Negative 06/11/18 06/11/18 06/11/18 20:17 21:24 22:44 WBC RBC Hgb Hct MCV MCH MCHC RDW Plt Count MPV Neut % (Auto) Lymph % (Auto) [place] % (Auto) Eos % (Auto) Baso % (Auto) Neut # (Auto) Lymph # (Auto) [place] # (Auto) Eos # (Auto) Baso # (Auto) PT INR APTT Sodium Potassium Chloride Carbon Dioxide Anion Gap BUN Creatinine Est GFR ( Amer) Est GFR (Non-Af Amer) POC Glucose (mg/dL) 121 H 78 Random Glucose Hemoglobin A1c Calcium Phosphorus Magnesium Total Bilirubin AST ALT Alkaline Phosphatase Total Protein Albumin Globulin Albumin/Globulin Ratio Triglycerides 106 D Cholesterol 142 LDL Cholesterol Direct 85 HDL Cholesterol 40 Urine Color Urine Clarity Urine pH Ur Specific [place] Urine Protein Urine Glucose (UA) Urine Ketones Urine Blood Urine Nitrate Urine Bilirubin Urine Urobilinogen Ur Leukocyte Esterase Urine WBC (Auto) Urine RBC (Auto) Ur Squamous Epith Cells Urine Opiates Screen Urine Methadone Screen Ur Barbiturates Screen Ur Phencyclidine Scrn Ur Amphetamines Screen U Benzodiazepines Scrn U Oth Cocaine Metabols U Cannabinoids Screen 06/12/18 06/12/18 06/12/18 06:23 07:39 07:39 WBC 7.2 RBC 3.40 L Hgb 10.4 L Hct 30.1 L MCV 88.6 MCH 30.5 MCHC 34.4 RDW 13.6 Plt Count 220 MPV 7.0 L Neut % (Auto) 51.2 Lymph % (Auto) 36.1 [place] % (Auto) 6.8 Eos % (Auto) 4.9 H Baso % (Auto) 1.0 Neut # (Auto) 3.7 Lymph # (Auto) 2.6 [place] # (Auto) 0.5 Eos # (Auto) 0.4 Baso # (Auto) 0.1 PT INR APTT Sodium 140 Potassium 5.0 Chloride 107 Carbon Dioxide 26 Anion Gap 12 BUN 29 H Creatinine 1.3 H Est GFR ( Amer) 50 Est GFR (Non-Af Amer) 42 POC Glucose (mg/dL) 74 Random Glucose 87 Hemoglobin A1c Calcium 9.0 Phosphorus 4.4 Magnesium 1.7 Total Bilirubin 0.4 AST 26 ALT 18 Alkaline Phosphatase 68 Total Protein 7.4 Albumin 3.9 Globulin 3.5 Albumin/Globulin Ratio 1.1 Triglycerides Cholesterol LDL Cholesterol Direct HDL Cholesterol Urine Color Urine Clarity Urine pH Ur Specific [place] Urine Protein Urine Glucose (UA) Urine Ketones Urine Blood Urine Nitrate Urine Bilirubin Urine Urobilinogen Ur Leukocyte Esterase Urine WBC (Auto) Urine RBC (Auto) Ur Squamous Epith Cells Urine Opiates Screen Urine Methadone Screen Ur Barbiturates Screen Ur Phencyclidine Scrn Ur Amphetamines Screen U Benzodiazepines Scrn U Oth Cocaine Metabols U Cannabinoids Screen 06/12/18 07:39 WBC RBC Hgb Hct MCV MCH MCHC RDW Plt Count MPV Neut % (Auto) Lymph % (Auto) [place] % (Auto) Eos % (Auto) Baso % (Auto) Neut # (Auto) Lymph # (Auto) [place] # (Auto) Eos # (Auto) Baso # (Auto) PT INR APTT Sodium Potassium Chloride Carbon Dioxide Anion Gap BUN Creatinine Est GFR ( Amer) Est GFR (Non-Af Amer) POC Glucose (mg/dL) Random Glucose Hemoglobin A1c 6.4 Calcium Phosphorus Magnesium Total Bilirubin AST ALT Alkaline Phosphatase Total Protein Albumin Globulin Albumin/Globulin Ratio Triglycerides Cholesterol LDL Cholesterol Direct HDL Cholesterol Urine Color Urine Clarity Urine pH Ur Specific [place] Urine Protein Urine Glucose (UA) Urine Ketones Urine Blood Urine Nitrate Urine Bilirubin Urine Urobilinogen Ur Leukocyte Esterase Urine WBC (Auto) Urine RBC (Auto) Ur Squamous Epith Cells Urine Opiates Screen Urine Methadone Screen Ur Barbiturates Screen Ur Phencyclidine Scrn Ur Amphetamines Screen U Benzodiazepines Scrn U Oth Cocaine Metabols U Cannabinoids Screen Assessment & Plan (1) Foot ulcer Status: Acute (2) Osteomyelitis Status: Acute - Assessment and Plan (Free Text) Assessment: infected left hallux with likely OM cultures MRI pending Early amputation vs manager terminal IV antibioitics to be discussed
[2018-06-12] MEDS: Rosuvastatin Calcium 2.5 mg Tab PO SCH (22:26)
[2018-06-13] MEDS: Piperacill/Tazo 3.375gm in Dex 3.375 GM/50 ML BAG IVPB SCH ×4 (03:16→21:37)
--- NOTE | 2018-06-13 07:10 | CP.PCM.PN ---
Subjective - Date & Time of Evaluation Date of Evaluation: 06/13/18 Time of Evaluation: 07:10 - Subjective Subjective: HOSPITALIST SERVICE Pt seen and examined at bedside, Pt denies acute events overnight. Pt says she had minor night sweats but improved since yesterday. Pt denies cp sob fc nv. no bm yet today. Pt understands current status of osteomyelitis and agrees with plan Objective - Vital Signs/Intake and Output Vital Signs (last 24 hours): Temp Pulse Resp BP Pulse Ox 97.7 F 73 20 110/68 95 06/12/18 23:00 06/12/18 23:00 06/12/18 23:00 06/12/18 23:00 06/12/18 23:00 Intake and Output: 06/13/18 06/13/18 06:59 18:59 Intake Total 500 Balance 500 - Medications Medications: Current Medications Acetaminophen (Tylenol 325mg Tab) 650 mg PO Q6 PRN PRN Reason: Pain, moderate (4-7) Dextrose (Dextrose 50% Inj) 0 ml IV STAT PRN; Protocol PRN Reason: Hypoglycemia Protocol Dextrose (Glutose 15) 0 gm PO ONCE PRN; Protocol PRN Reason: Hypoglycemia Protocol Glucagon (Glucagen Diagnostic Kit) 0 mg IM STAT PRN; Protocol PRN Reason: Hypoglycemia Protocol Heparin Sodium (Porcine) (Heparin) 5,000 units SC Q8 MATTHEW Last Admin: 06/13/18 05:37 Dose: 5,000 units Dextrose (Dextrose 5% In Water 1000 Ml) 1,000 mls @ 0 mls/hr IV .Q0M PRN; Protocol PRN Reason: Hypoglycemia Protocol Piperacillin Sod/Tazobactam Sod (Zosyn 3.375 Gm Iv Premix) 3.375 gm in 50 mls @ 100 mls/hr IVPB Q6H MATTHEW; Protocol Last Admin: 06/13/18 03:16 Dose: 100 mls/hr Vancomycin HCl 1,000 mg/ (Sodium Chloride) 250 mls @ 166.6 mls/hr IVPB Q12H MATTHEW; Protocol Last Admin: 06/13/18 03:18 Dose: 166.6 mls/hr Insulin Human Regular (Novolin R) 0 unit SC ACHS MATTHEW; Protocol Last Admin: 06/12/18 22:26 Dose: Not Given Lisinopril (Zestril) 10 mg PO DAILY [facility] Last Admin: 06/12/18 11:33 Dose: 10 mg Mupirocin (Bactroban Ointment) 0 gm EXT DAILY [facility] Last Admin: 06/12/18 12:00 Dose: 1 applic Rosuvastatin Calcium (Crestor) 2.5 mg PO HS [facility] Last Admin: 06/12/18 22:26 Dose: 2.5 mg Saccharomyces Boulardii (Florastor) 250 mg PO BID [facility] Last Admin: 06/12/18 18:48 Dose: 250 mg - Labs Labs: 06/12/18 07:39 06/12/18 07:39 PT 11.9 SECONDS (9.7-12.2) 06/11/18 14:34 INR 1.1 06/11/18 14:34 APTT 32 SECONDS (21-34) 06/11/18 14:34 - Additional Findings Additional findings: - Constitutional Appears: Well, Non-toxic, No Acute Distress - Head Exam Head Exam: ATRAUMATIC, NORMAL INSPECTION - Eye Exam Eye Exam: EOMI, Normal appearance. absent: Scleral icterus - ENT Exam ENT Exam: Mucous Membranes Moist, Normal Oropharynx - Neck Exam Neck exam: Positive for: Normal Inspection. Negative for: Tenderness, Thyromegaly - Respiratory Exam Respiratory Exam: Clear to Auscultation Bilateral, NORMAL BREATHING PATTERN - Cardiovascular Exam Cardiovascular Exam: RRR, +S1, +S2 - GI/Abdominal Exam GI & Abdominal Exam: Soft. absent: Firm, Rigid, Tenderness - Extremities Exam Extremities exam: Positive for: calf tenderness, pedal edema, tenderness (L ankle ), pedal pulses present - Expanded Lower Extremities Exam Left Lower Leg Exam: Alhaji's sign Foot/Toe exam: swelling (2x2cm ulcera medial aspect of great toe, nontender, nonerythematous, no bleed) - Back Exam Back exam: absent: CVA tenderness (R) - Neurological Exam Neurological exam: Alert, CN II-XII Intact, Oriented x3 - Psychiatric Exam Psychiatric exam: Normal Affect, Normal Mood - Skin Skin Exam: Normal Color, Warm Assessment and Plan - Assessment and Plan (Free Text) Assessment: 62 F with a PMHx of htn, hld, dm, depression and vertigo presents to the ED after 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 Kennedy f/u recs Betadine with compression wrap Afebrile- monitor vitals Fall Risk Precautions LE duplex neg for DVT GAMALIEL normal PICC Line Ordered- d/c tmrw pending sensitivities and ID recs Hx of Hypertension Lisinopril 10mg PO QD Monitor BP Hx of DM Metformin Hold Glipizide hold Hypoglycemic Protocol Maintain euglycemia 120-140s 6.1 A1C Accuchex ACHS Low Dose- ISS EKG Hx of HLD Crestor 2.5mg PO HS Normal Lipid Panel PPX Heparin 5000u sc q8 GI not indicated florastor 250 PO BID- do not give within 2 hrs of antibiotics PT/OT eval and treat Dispo: confirmed osteomyelitis on MRI, cultures grew gram pos cocci and gram neg rods
[2018-06-13] MEDS: (Novolin R) Insulin Human Regular 100 units/ml vial SC SCH ×4 (07:48→21:37)
[2018-06-13 08:37] LABS: BASO # 0.1 K/uL (0.0-0.2); BASO % 0.9 % (0.0-2.0); EOS # 0.3 K/uL (0.0-0.7); EOS % 4.5 % (0.0-4.0); HEMOGLOBIN 10.8 g/dL (11.0-16.0); LYMPH # 2.1 K/uL (1.0-4.3); LYMPH % 38.2 % (20.0-40.0); MEAN CELL VOLUME 88.7 fL (81.0-99.0); MEAN CORPUSCULAR HEMOGLOBIN 30.6 pg (27.0-31.0); MEAN CORPUSCULAR HGB CONC 34.5 g/dL (33.0-37.0); MEAN PLATELET VOLUME 7.1 fL (7.2-11.7); MONO # 0.4 K/uL (0.0-0.8); MONO % 6.9 % (0.0-10.0); NEUT # 2.8 K/uL (1.8-7.0); NEUT % 49.5 % (50.0-75.0); RBC 3.52 Mil/uL (3.80-5.20); RED CELL DISTRIBUTION WIDTH 13.5 % (11.5-14.5); WHITE BLOOD COUNT 5.6 K/uL (4.8-10.8)
[2018-06-13 09:23] LABS: ALBUMIN 3.7 g/dL (3.5-5.0); CALCIUM 8.8 mg/dl (8.6-10.4)
[2018-06-13] MEDS: Saccharomyces Boulardi 250 mg Cap PO SCH ×2 (09:43→17:31)
--- NOTE | 2018-06-13 10:54 | CP.PCM.PN ---
Subjective - Date & Time of Evaluation Date of Evaluation: 06/13/18 Time of Evaluation: 10:50 - Subjective Subjective: Podiatry Progress note: Dr. Martinez 62 year old female seen and evaluated at bedside for left hallux wound. Patient is AAOx3 and appears in NAD. No new pedal complains. Denies of recent F/N/V/C/SOB/CP. Objective - Vital Signs/Intake and Output Vital Signs (last 24 hours): Temp Pulse Resp BP Pulse Ox 98.1 F 72 20 120/77 95 06/13/18 07:00 06/13/18 09:44 06/13/18 07:00 06/13/18 09:44 06/13/18 07:00 Intake and Output: 06/13/18 06/13/18 06:59 18:59 Intake Total 500 Balance 500 - Medications Medications: Current Medications Acetaminophen (Tylenol 325mg Tab) 650 mg PO Q6 PRN PRN Reason: Pain, moderate (4-7) Dextrose (Dextrose 50% Inj) 0 ml IV STAT PRN; Protocol PRN Reason: Hypoglycemia Protocol Dextrose (Glutose 15) 0 gm PO ONCE PRN; Protocol PRN Reason: Hypoglycemia Protocol Glucagon (Glucagen Diagnostic Kit) 0 mg IM STAT PRN; Protocol PRN Reason: Hypoglycemia Protocol Heparin Sodium (Porcine) (Heparin) 5,000 units SC Q8 [facility] Last Admin: 06/13/18 05:37 Dose: 5,000 units Dextrose (Dextrose 5% In Water 1000 Ml) 1,000 mls @ 0 mls/hr IV .Q0M PRN; Protocol PRN Reason: Hypoglycemia Protocol Piperacillin Sod/Tazobactam Sod (Zosyn 3.375 Gm Iv Premix) 3.375 gm in 50 mls @ 100 mls/hr IVPB Q6H [facility]; Protocol Last Admin: 06/13/18 10:10 Dose: 100 mls/hr Vancomycin HCl 1,000 mg/ (Sodium Chloride) 250 mls @ 166.6 mls/hr IVPB Q12H [facility]; Protocol Last Admin: 06/13/18 03:18 Dose: 166.6 mls/hr Insulin Human Regular (Novolin R) 0 unit SC ACHS [facility]; Protocol Last Admin: 06/13/18 07:48 Dose: Not Given Lisinopril (Zestril) 10 mg PO DAILY [facility] Last Admin: 06/13/18 09:43 Dose: 10 mg Mupirocin (Bactroban Ointment) 0 gm EXT DAILY [facility] Last Admin: 06/13/18 09:44 Dose: 1 applic Rosuvastatin Calcium (Crestor) 2.5 mg PO HS [facility] Last Admin: 06/12/18 22:26 Dose: 2.5 mg Saccharomyces Boulardii (Florastor) 250 mg PO BID [facility] Last Admin: 06/13/18 09:43 Dose: 250 mg - Labs Labs: 06/13/18 08:28 06/13/18 08:28 PT 11.9 SECONDS (9.7-12.2) 06/11/18 14:34 INR 1.1 06/11/18 14:34 APTT 32 SECONDS (21-34) 06/11/18 14:34 - Constitutional Appears: Well, Non-toxic, No Acute Distress - Extremities Exam Additional comments: Bilateral LE exam: VASC: DP/PT pulses are are palpable 1/4, Cap refill time: < 3 sec to all digits, Temp gradient: warm to cool from proximal to distal on the LLE, Non-pitting edema with erythema noted on the LLE distal to ankle joint, no pitting or non- pitting edema noted on the right DERM: Wound measuring approx 2 cm x 2 cm x 0.1 cm on the medial aspect of the left hallux at the IPJ, wound base is mainly grannular with islands of fibrosis, dk-wound erythema appears to be decreasing, no active drainage, no malodor, no tunneling, no undermining, no probe to bone, hyperkerototic lesion noted on the medial aspect of the IPJ of the right hallux, no clinical suspicion of active infection NEURO: Protective sensation mildly diminished ORTHO: No pain on palpation of the hallux wound, MMT: 5/5 in all 4 direction at the ankle joint, mild pain during DF and PF during AROM and PROM at the left an kle - Neurological Exam Neurological Exam: Alert, Awake, Oriented x3 - Psychiatric Exam Psychiatric exam: Normal Affect, Normal Mood Assessment and Plan - Assessment and Plan (Free Text) Assessment: 62 year old female evaluated for left hallux wound (saenz 1) - infected Plan: Patient seen and evaluated Discussed plan with attending Dr. Martinez Labs, vitals and charts reviewed - VSS, WBC @ 5.6 Foot X-rays: - Demonstrates erosion/fragmentation on medial proximal aspect of the 1st distal phalanx possibly consistent with OM MRI ordered - Increase in signal intensity on T2 as well as on STIR image at the distal phalanx of the left hallux consistent with OM GAMALIEL/PVR: - R: 1.05, L: 1.06 with good waveform/amplitude - No evidence of arterial insuffency in b/l LE Ankle X-rays: - Pending Wound cultures left hallux: G+ cocci, G- Rods ID consult - Dr. Kennedy - IV abx as per ID Dressing applied using Bactroban, DSD Patient may require halfway IV abx treatment as patient is refusing any form of surgical intervention at this time Will continue to monitor patient while in-house
--- NOTE | 2018-06-13 13:32 | RAD ---
Date of service: 06/13/2018 PROCEDURE: Left Ankle Radiographs. HISTORY: ankle pain COMPARISON: None available. FINDINGS: BONES: No evidence of acute displaced fracture nor dislocation. Tiny bony densities seen within the soft tissues subjacent to the medial malleolus-inferomedial aspect of the ankle mortise possibly representing some old posttraumatic mineralization changes or chronic avulsion injury. JOINTS: Normal. No osteoarthritis. Ankle mortise maintained. Talar dome intact SOFT TISSUES: Very minor soft tissue swelling lateral greater than medial. OTHER FINDINGS: None. IMPRESSION: No acute fractures. Tiny bony densities within the soft tissues subjacent to the inferior tip medial malleolus/inferomedial aspect of the ankle mortise possibly representing some old posttraumatic mineralization or chronic avulsion injury changes. Mild soft tissue swelling lateral greater than medial.
[2018-06-13] MEDS: Rosuvastatin Calcium 2.5 mg Tab PO SCH (21:37)
--- NOTE | 2018-06-13 22:09 | CP.PCM.PN ---
Subjective - Date & Time of Evaluation Date of Evaluation: 06/13/18 Time of Evaluation: 07:00 - Subjective Subjective: refusing surgery opting for IV rx only Objective - Vital Signs/Intake and Output Vital Signs (last 24 hours): Temp Pulse Resp BP Pulse Ox 98.6 F 70 20 153/73 H 97 06/13/18 16:00 06/13/18 16:00 06/13/18 16:00 06/13/18 16:00 06/13/18 16:00 - Medications Medications: Current Medications Acetaminophen (Tylenol 325mg Tab) 650 mg PO Q6 PRN PRN Reason: Pain, moderate (4-7) Dextrose (Dextrose 50% Inj) 0 ml IV STAT PRN; Protocol PRN Reason: Hypoglycemia Protocol Dextrose (Glutose 15) 0 gm PO ONCE PRN; Protocol PRN Reason: Hypoglycemia Protocol Glucagon (Glucagen Diagnostic Kit) 0 mg IM STAT PRN; Protocol PRN Reason: Hypoglycemia Protocol Heparin Sodium (Porcine) (Heparin) 5,000 units SC Q8 [facility] Last Admin: 06/13/18 21:37 Dose: 5,000 units Dextrose (Dextrose 5% In Water 1000 Ml) 1,000 mls @ 0 mls/hr IV .Q0M PRN; Protocol PRN Reason: Hypoglycemia Protocol Piperacillin Sod/Tazobactam Sod (Zosyn 3.375 Gm Iv Premix) 3.375 gm in 50 mls @ 100 mls/hr IVPB Q6H [facility]; Protocol Last Admin: 06/13/18 21:37 Dose: 100 mls/hr Vancomycin HCl 1,000 mg/ (Sodium Chloride) 250 mls @ 166.6 mls/hr IVPB Q12H [facility]; Protocol Last Admin: 06/13/18 16:30 Dose: 166.6 mls/hr Insulin Human Regular (Novolin R) 0 unit SC ACHS [facility]; Protocol Last Admin: 06/13/18 21:37 Dose: Not Given Lisinopril (Zestril) 10 mg PO DAILY [facility] Last Admin: 06/13/18 09:43 Dose: 10 mg Mupirocin (Bactroban Ointment) 0 gm EXT DAILY [facility] Last Admin: 06/13/18 09:44 Dose: 1 applic Rosuvastatin Calcium (Crestor) 2.5 mg PO HS [facility] Last Admin: 12/05/18 21:37 Dose: 2.5 mg Saccharomyces Boulardii (Florastor) 250 mg PO BID [facility] Last Admin: 06/13/18 17:31 Dose: 250 mg - Labs Labs: 06/13/18 08:28 06/13/18 08:28 PT 11.9 SECONDS (9.7-12.2) 06/11/18 14:34 INR 1.1 06/11/18 14:34 APTT 32 SECONDS (21-34) 06/11/18 14:34 - Constitutional Appears: Non-toxic - Head Exam Head Exam: NORMOCEPHALIC - Eye Exam Pupil Exam: PERRL - ENT Exam ENT Exam: Mucous Membranes Dry - Neck Exam Neck Exam: absent: Lymphadenopathy - Respiratory Exam Respiratory Exam: Decreased Breath Sounds - Cardiovascular Exam Cardiovascular Exam: REGULAR RHYTHM, +S1, +S2 - GI/Abdominal Exam GI & Abdominal Exam: Distended, Soft - Rectal Exam Rectal Exam: Deferred - Exam Exam: NORMAL INSPECTION Speculum exam: Erythema Assessment and Plan (1) Foot ulcer Status: Acute (2) Osteomyelitis Status: Acute - Assessment and Plan (Free Text) Assessment: cont iv rx for 6 weeks
[2018-06-14] MEDS: Piperacill/Tazo 3.375gm in Dex 3.375 GM/50 ML BAG IVPB SCH ×4 (02:11→22:15)
[2018-06-14 08:13] LABS: BASO # 0.1 K/uL (0.0-0.2); BASO % 1.1 % (0.0-2.0); EOS # 0.3 K/uL (0.0-0.7); LYMPH # 2.1 K/uL (1.0-4.3); MEAN CORPUSCULAR HGB CONC 34.8 g/dL (33.0-37.0); MEAN PLATELET VOLUME 6.9 fL (7.2-11.7); MONO # 0.4 K/uL (0.0-0.8); MONO % 6.9 % (0.0-10.0); NEUT # 2.5 K/uL (1.8-7.0); NRBC % 0.1 % (0.0-2.0); RBC 3.55 Mil/uL (3.80-5.20); RED CELL DISTRIBUTION WIDTH 13.3 % (11.5-14.5); WHITE BLOOD COUNT 5.3 K/uL (4.8-10.8)
[2018-06-14] MEDS: (Novolin R) Insulin Human Regular 100 units/ml vial SC SCH ×4 (08:39→21:47)
[2018-06-14 08:51] LABS: ALBUMIN 3.7 g/dL (3.5-5.0); ALT/SGPT 21 U/L (9-52); AST/SGOT 21 U/L (14-36); BLOOD UREA NITROGEN 20 mg/dL (7-17); CALCIUM 8.8 mg/dl (8.6-10.4); GFR NON-AFRICAN AMERICAN 50
--- NOTE | 2018-06-14 10:50 | CP.PCM.PN ---
Subjective - Date & Time of Evaluation Date of Evaluation: 06/14/18 Time of Evaluation: 10:46 - Subjective Subjective: Podiatry Progress note: Dr. Martinez 62 year old female seen and evaluated at bedside with attending Dr. Martinez for left hallux wound. Patient is AAOx3 and appears in NAD. No new pedal complains. Denies of recent F/N/V/C/SOB/CP. Objective - Vital Signs/Intake and Output Vital Signs (last 24 hours): Temp Pulse Resp BP Pulse Ox 97.9 F 77 20 137/88 96 06/14/18 07:30 06/14/18 07:30 06/14/18 07:30 06/14/18 07:30 06/14/18 07:30 Intake and Output: 06/14/18 06/14/18 06:59 18:59 Intake Total 550 Balance 550 - Medications Medications: Current Medications Acetaminophen (Tylenol 325mg Tab) 650 mg PO Q6 PRN PRN Reason: Pain, moderate (4-7) Dextrose (Dextrose 50% Inj) 0 ml IV STAT PRN; Protocol PRN Reason: Hypoglycemia Protocol Dextrose (Glutose 15) 0 gm PO ONCE PRN; Protocol PRN Reason: Hypoglycemia Protocol Glucagon (Glucagen Diagnostic Kit) 0 mg IM STAT PRN; Protocol PRN Reason: Hypoglycemia Protocol Heparin Sodium (Porcine) (Heparin) 5,000 units SC Q8 [facility] Last Admin: 06/14/18 05:25 Dose: 5,000 units Dextrose (Dextrose 5% In Water 1000 Ml) 1,000 mls @ 0 mls/hr IV .Q0M PRN; Protocol PRN Reason: Hypoglycemia Protocol Piperacillin Sod/Tazobactam Sod (Zosyn 3.375 Gm Iv Premix) 3.375 gm in 50 mls @ 100 mls/hr IVPB Q6H [facility]; Protocol Last Admin: 06/14/18 09:11 Dose: 100 mls/hr Vancomycin HCl 1,000 mg/ (Sodium Chloride) 250 mls @ 166.6 mls/hr IVPB Q12H [facility]; Protocol Last Admin: 06/14/18 02:41 Dose: 166.6 mls/hr Insulin Human Regular (Novolin R) 0 unit SC ACHS [facility]; Protocol Last Admin: 06/14/18 08:39 Dose: Not Given Lisinopril (Zestril) 10 mg PO DAILY [facility] Last Admin: 06/13/18 09:43 Dose: 10 mg Mupirocin (Bactroban Ointment) 0 gm EXT DAILY [facility] Last Admin: 06/13/18 09:44 Dose: 1 applic Rosuvastatin Calcium (Crestor) 2.5 mg PO HS [facility] Last Admin: 06/13/18 21:37 Dose: 2.5 mg Saccharomyces Boulardii (Florastor) 250 mg PO BID [facility] Last Admin: 06/13/18 17:31 Dose: 250 mg - Labs Labs: 06/14/18 08:07 06/14/18 08:07 PT 11.9 SECONDS (9.7-12.2) 06/11/18 14:34 INR 1.1 06/11/18 14:34 APTT 32 SECONDS (21-34) 06/11/18 14:34 - Constitutional Appears: Well, Non-toxic, No Acute Distress - Extremities Exam Additional comments: Bilateral LE exam: VASC: DP/PT pulses are are palpable 1/4, Cap refill time: < 3 sec to all digits, Temp gradient: warm to cool from proximal to distal on the LLE, Non-pitting e perfecto with erythema noted on the LLE distal to ankle joint, no pitting or non- pitting edema noted on the right DERM: Wound measuring approx 2 cm x 2 cm x 0.1 cm on the medial aspect of the left hallux at the IPJ, wound base is mainly grannular with islands of fibrosis, kd-wound erythema appears to be decreasing, no active drainage, no malodor, no tunneling, no undermining, no probe to bone, hyperkerototic lesion noted on the medial aspect of the IPJ of the right hallux with subdermal hematoma NEURO: Protective sensation mildly diminished ORTHO: No pain on palpation of the hallux wound, MMT: 5/5 in all 4 direction at the ankle joint, mild pain during DF and PF during AROM and PROM at the left ankle - Neurological Exam Neurological Exam: Alert, Awake, Oriented x3 - Psychiatric Exam Psychiatric exam: Normal Affect, Normal Mood Assessment and Plan - Assessment and Plan (Free Text) Assessment: 62 year old female evaluated for left hallux wound (saenz 1) - infected Plan: Patient seen and evaluated with attending Dr. Martinez Labs, vitals and charts reviewed - VSS, WBC @ 5.3 Foot X-rays: - Demonstrates erosion/fragmentation on medial proximal aspect of the 1st distal phalanx possibly consistent with OM MRI ordered - Increase in signal intensity on T2 as well as on STIR image at the distal phalanx of the left hallux consistent with OM GAMALIEL/PVR: - R: 1.05, L: 1.06 with good waveform/amplitude - No evidence of arterial insuffency in b/l LE Ankle X-rays: - mild errosive changes noted on the medial aspect of the ankle distal to medial mal within medial clear space consistent with possible chronic ankle injury Wound cultures left hallux: MRSA, Acinetobacter. Baumanni ID consult - Dr. 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
[2018-06-14] MEDS: Saccharomyces Boulardi 250 mg Cap PO SCH ×2 (10:59→17:50)
--- NOTE | 2018-06-14 16:46 | CP.PCM.PN ---
Subjective - Date & Time of Evaluation Date of Evaluation: 06/14/18 Time of Evaluation: 16:43 - Subjective Subjective: HOSPITALIST SERVICE Pt seen and examined at bedside, pt feel foot and ankle pain has improved, pt denies cp sob fc nv. Pt agrees with plan for outpt infusion plan Objective - Vital Signs/Intake and Output Vital Signs (last 24 hours): Temp Pulse Resp BP Pulse Ox 97.3 F L 72 20 153/76 H 96 06/14/18 15:46 06/14/18 15:46 06/14/18 15:46 06/14/18 15:46 06/14/18 15:46 Intake and Output: 06/14/18 06/14/18 06:59 18:59 Intake Total 550 Balance 550 - Medications Medications: Current Medications Acetaminophen (Tylenol 325mg Tab) 650 mg PO Q6 PRN PRN Reason: Pain, moderate (4-7) Dextrose (Dextrose 50% Inj) 0 ml IV STAT PRN; Protocol PRN Reason: Hypoglycemia Protocol Dextrose (Glutose 15) 0 gm PO ONCE PRN; Protocol PRN Reason: Hypoglycemia Protocol Glucagon (Glucagen Diagnostic Kit) 0 mg IM STAT PRN; Protocol PRN Reason: Hypoglycemia Protocol Heparin Sodium (Porcine) (Heparin) 5,000 units SC Q8 [facility] Last Admin: 06/14/18 13:22 Dose: 5,000 units Dextrose (Dextrose 5% In Water 1000 Ml) 1,000 mls @ 0 mls/hr IV .Q0M PRN; Protocol PRN Reason: Hypoglycemia Protocol Piperacillin Sod/Tazobactam Sod (Zosyn 3.375 Gm Iv Premix) 3.375 gm in 50 mls @ 100 mls/hr IVPB Q6H [facility]; Protocol Last Admin: 06/14/18 09:11 Dose: 100 mls/hr Vancomycin HCl 1,000 mg/ (Sodium Chloride) 250 mls @ 166.6 mls/hr IVPB Q12H [facility]; Protocol Last Admin: 06/14/18 14:35 Dose: 166.6 mls/hr Insulin Human Regular (Novolin R) 0 unit SC ACHS [facility]; Protocol Last Admin: 06/14/18 13:22 Dose: 1 unit Lisinopril (Zestril) 10 mg PO DAILY [facility] Last Admin: 06/14/18 10:59 Dose: 10 mg Mupirocin (Bactroban Ointment) 0 gm EXT DAILY [facility] Last Admin: 06/14/18 10:59 Dose: 1 applic Rosuvastatin Calcium (Crestor) 2.5 mg PO HS [facility] Last Admin: 06/13/18 21:37 Dose: 2.5 mg Saccharomyces Boulardii (Florastor) 250 mg PO BID [facility] Last Admin: 06/14/18 10:59 Dose: 250 mg - Labs Labs: 06/14/18 08:07 06/14/18 08:07 PT 11.9 SECONDS (9.7-12.2) 06/11/18 14:34 INR 1.1 06/11/18 14:34 APTT 32 SECONDS (21-34) 06/11/18 14:34 - Additional Findings Additional findings: - Constitutional Appears: Well, Non-toxic, No Acute Distress - Head Exam Head Exam: ATRAUMATIC, NORMAL INSPECTION - Eye Exam Eye Exam: EOMI, Normal appearance. absent: Scleral icterus - ENT Exam ENT Exam: Mucous Membranes Moist, Normal Oropharynx - Neck Exam Neck exam: Positive for: Normal Inspection. Negative for: Tenderness, Thyromegaly - Respiratory Exam Respiratory Exam: Clear to Auscultation Bilateral, NORMAL BREATHING PATTERN - Cardiovascular Exam Cardiovascular Exam: RRR, +S1, +S2 - GI/Abdominal Exam GI & Abdominal Exam: Soft. absent: Firm, Rigid, Tenderness - Extremities Exam Extremities exam: Positive for: calf tenderness, pedal edema, tenderness (L ankle ), pedal pulses present - Expanded Lower Extremities Exam Left Lower Leg Exam: Alhaji's sign Foot/Toe exam: swelling (2x2cm ulcera medial aspect of great toe, nontender, nonerythematous, no bleed) - Back Exam Back exam: absent: CVA tenderness (R) - Neurological Exam Neurological exam: Alert, CN II-XII Intact, Oriented x3 - Psychiatric Exam Psychiatric exam: Normal Affect, Normal Mood - Skin Skin Exam: Normal Color, Warm Assessment and Plan - Assessment and Plan (Free Text) Assessment: 62 F with a PMHx of htn, hld, dm, depression and vertigo presents to the ED 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 Kennedy f/u recs Betadine with compression wrap Afebrile- monitor vitals Fall Risk Precautions LE duplex neg for DVT GAMALIEL normal PICC Line Ordered- d/c tmrw pending sensitivities and ID recs Hx of Hypertension Lisinopril 10mg PO QD Monitor BP Hx of DM Metformin Hold Glipizide hold Hypoglycemic Protocol Maintain euglycemia 120-140s 6.1 A1C Accuchex ACHS Low Dose- ISS EKG Hx of HLD Crestor 2.5mg PO HS Normal Lipid Panel PPX Heparin 5000u sc q8 GI not indicated florastor 250 PO BID- do not give within 2 hrs of antibiotics PT/OT eval and treat Dispo: confirmed osteomyelitis on MRI, cultures grew gram pos cocci and gram neg rods, Pending PICC line and abx recs
[2018-06-14] MEDS: Rosuvastatin Calcium 2.5 mg Tab PO SCH (22:23)
[2018-06-15] MEDS: Piperacill/Tazo 3.375gm in Dex 3.375 GM/50 ML BAG IVPB SCH ×3 (02:30→15:54)
[2018-06-15] MEDS: (Novolin R) Insulin Human Regular 100 units/ml vial SC SCH ×2 (07:21→12:27)
[2018-06-15 08:28] LABS: BASO # 0.1 K/uL (0.0-0.2); EOS # 0.2 K/uL (0.0-0.7); EOS % 4.3 % (0.0-4.0); HEMOGLOBIN 11.1 g/dL (11.0-16.0); LYMPH # 1.8 K/uL (1.0-4.3); LYMPH % 34.7 % (20.0-40.0); MEAN CELL VOLUME 89.7 fL (81.0-99.0); MEAN CORPUSCULAR HEMOGLOBIN 31.1 pg (27.0-31.0); MEAN CORPUSCULAR HGB CONC 34.7 g/dL (33.0-37.0); MONO # 0.4 K/uL (0.0-0.8); MONO % 7.8 % (0.0-10.0); NEUT # 2.6 K/uL (1.8-7.0); NEUT % 52.2 % (50.0-75.0); NRBC % 0.1 % (0.0-2.0); RBC 3.57 Mil/uL (3.80-5.20); RED CELL DISTRIBUTION WIDTH 13.3 % (11.5-14.5); WHITE BLOOD COUNT 5.1 K/uL (4.8-10.8)
[2018-06-15 08:52] LABS: ALB/GLOB RATIO 1.1 (1.0-2.1); ALBUMIN 3.9 g/dL (3.5-5.0); ALT/SGPT 31 U/L (9-52); AST/SGOT 38 U/L (14-36); BLOOD UREA NITROGEN 16 mg/dL (7-17); CALCIUM 8.7 mg/dl (8.6-10.4); GFR NON-AFRICAN AMERICAN 50
--- NOTE | 2018-06-15 09:29 | CP.PCM.DIS ---
Provider - Provider Date of Admission: 06/11/18 15:35 Attending physician: Lanette Miles DO Consults: 06/11/18 15:10 Physician Consult Stat Comment: Consulting Provider: David Martinez Consulting Physician: David Martinez Reason for Consult: Left foot ulcer, non-healing 06/11/18 16:48 Infectious Disease Consult Stat Comment: Consulting Provider: Max Kennedy Consulting Physician: Max Kennedy Reason for Consult: Left hallux wound with possible OM 06/14/18 07:59 Radiology Consult Routine Comment: Consulting Provider: Trever Bales Consulting Physician: Treevr Bales Reason for Consult: PICC Line Time Spent in preparation of Discharge (in minutes): 45 Hospital Course - Lab Results Lab Results: Micro Results 06/11/18 14:45 Blood Blood Culture - Preliminary NO GROWTH AFTER 3 DAYS 06/11/18 14:30 Blood Blood Culture - Preliminary NO GROWTH AFTER 3 DAYS 06/11/18 16:54 Toe Gram Stain - Final 06/11/18 16:54 Toe Wound Culture - Final Methicillin Resistant S Aureus Acinetobacter Baumannii Most Recent Lab Values WBC 5.1 K/uL (4.8-10.8) 06/15/18 08:17 RBC 3.57 Mil/uL (3.80-5.20) L 06/15/18 08:17 Hgb 11.1 g/dL (11.0-16.0) 06/15/18 08:17 Hct 32.0 % (34.0-47.0) L 06/15/18 08:17 MCV 89.7 fL (81.0-99.0) 06/15/18 08:17 MCH 31.1 pg (27.0-31.0) H 06/15/18 08:17 MCHC 34.7 g/dL (33.0-37.0) 06/15/18 08:17 RDW 13.3 % (11.5-14.5) 06/15/18 08:17 Plt Count 214 K/uL (130-400) 06/15/18 08:17 MPV 7.0 fL (7.2-11.7) L 06/15/18 08:17 Neut % (Auto) 52.2 % (50.0-75.0) 06/15/18 08:17 Lymph % (Auto) 34.7 % (20.0-40.0) 06/15/18 08:17 [place] % (Auto) 7.8 % (0.0-10.0) 06/15/18 08:17 Eos % (Auto) 4.3 % (0.0-4.0) H 06/15/18 08:17 Baso % (Auto) 1.0 % (0.0-2.0) 06/15/18 08:17 Neut # (Auto) 2.6 K/uL (1.8-7.0) 06/15/18 08:17 Lymph # (Auto) 1.8 K/uL (1.0-4.3) 06/15/18 08:17 [place] # (Auto) 0.4 K/uL (0.0-0.8) 06/15/18 08:17 Eos # (Auto) 0.2 K/uL (0.0-0.7) 06/15/18 08:17 Baso # (Auto) 0.1 K/uL (0.0-0.2) 06/15/18 08:17 PT 11.9 SECONDS (9.7-12.2) 06/11/18 14:34 INR 1.1 06/11/18 14:34 APTT 32 SECONDS (21-34) 06/11/18 14:34 Sodium 139 mmol/L (132-148) 06/15/18 08:17 Potassium 4.3 mmol/L (3.6-5.2) 06/15/18 08:17 Chloride 106 mmol/L (98-107) 06/15/18 08:17 Carbon Dioxide 25 mmol/L (22-30) 06/15/18 08:17 Anion Gap 13 (10-20) 06/15/18 08:17 BUN 16 mg/dL (7-17) 06/15/18 08:17 Creatinine 1.1 mg/dL (0.7-1.2) 06/15/18 08:17 Est GFR ( Amer) > 60 06/15/18 08:17 Est GFR (Non-Af Amer) 50 06/15/18 08:17 POC Glucose (mg/dL) 104 mg/dL (65-110) 06/15/18 06:24 Random Glucose 129 mg/dL (65-105) H 06/15/18 08:17 Hemoglobin A1c 6.4 % (4.2-6.5) 06/12/18 07:39 Calcium 8.7 mg/dl (8.6-10.4) 06/15/18 08:17 Phosphorus 4.4 mg/dL (2.5-4.5) 06/12/18 07:39 Magnesium 1.7 mg/dL (1.6-2.3) 06/12/18 07:39 Total Bilirubin 0.6 mg/dL (0.2-1.3) 06/15/18 08:17 AST 38 U/L (14-36) H D 06/15/18 08:17 ALT 31 U/L (9-52) 06/15/18 08:17 Alkaline Phosphatase 63 U/L (38-126) 06/15/18 08:17 Total Protein 7.4 g/dL (6.3-8.3) 06/15/18 08:17 Albumin 3.9 g/dL (3.5-5.0) 06/15/18 08:17 Globulin 3.5 gm/dL (2.2-3.9) 06/15/18 08:17 Albumin/Globulin Ratio 1.1 (1.0-2.1) 06/15/18 08:17 Triglycerides 106 mg/dL (0-149) D 06/11/18 20:17 Cholesterol 142 mg/dL (0-199) 06/11/18 20:17 LDL Cholesterol Direct 85 mg/dL (0-129) 06/11/18 20:17 HDL Cholesterol 40 mg/dL (30-70) 06/11/18 20:17 Urine Color Yellow (YELLOW) 06/11/18 14:36 Urine Clarity Clear (Clear) 06/11/18 14:36 Urine pH 5.0 (5.0-8.0) 06/11/18 14:36 Ur Specific [place] 1.019 (1.003-1.030) 06/11/18 14:36 Urine Protein Negative mg/dL (NEGATIVE) 06/11/18 14:36 Urine Glucose (UA) Normal mg/dL (Normal) 06/11/18 14:36 Urine Ketones Negative mg/dL (NEGATIVE) 06/11/18 14:36 Urine Blood 1+ (NEGATIVE) H 06/11/18 14:36 Urine Nitrate Negative (NEGATIVE) 06/11/18 14:36 Urine Bilirubin Negative (NEGATIVE) 06/11/18 14:36 Urine Urobilinogen 2.0 mg/dL (0.2-1.0) H 06/11/18 14:36 Ur Leukocyte Esterase Neg Pablo/uL (Negative) 06/11/18 14:36 Urine WBC (Auto) 2 /hpf (0-5) 06/11/18 14:36 Urine RBC (Auto) 4 /hpf (0-3) H 06/11/18 14:36 Ur Squamous Epith Cells 2 /hpf (0-5) 06/11/18 14:36 Vancomycin Trough 16.3 ug/mL (5.0-10.0) H 06/13/18 02:25 Urine Opiates Screen Negative (NEGATIVE) 06/11/18 18:19 Urine Methadone Screen Negative (NEGATIVE) 06/11/18 18:19 Ur Barbiturates Screen Negative (NEGATIVE) 06/11/18 18:19 Ur Phencyclidine Scrn Negative (NEGATIVE) 06/11/18 18:19 Ur Amphetamines Screen Negative (NEGATIVE) 06/11/18 18:19 U Benzodiazepines Scrn Negative (NEGATIVE) 06/11/18 18:19 U Oth Cocaine Metabols Negative (NEGATIVE) 06/11/18 18:19 U Cannabinoids Screen Negative (NEGATIVE) 06/11/18 18:19 - Hospital Course Hospital Course: HPI: 62 year old female presents to clinic with PMHx of DM, HLD, HTN, Depression was seen and evaluated for left hallux wound that is 2 weeks old. States that she had a callus which she pulled off and developed a wound. She describes it as numbness in the great toe and pain in the ankle that radiates up the left calf. Patient states that she saw her propulsion engineer Dr. Martinez who prescribed her Keflex 500mg on 06/05. She returned to the office this past Monday and he advised her to come to the hospital for IV abx. Patient states that she got x-rays and was told that she may have bone infection. Patient also admits to recent falls for the last two weeks Denies of recent F/C/SOB/CP/headache. Patient denies of any pain to her foot today. Denies of any other pedal complains at this time. ROS POS+ chills, dizzy, dysphagia, clavicular pain, hard stools, hemmrhoids, leg pain, swelling, back pain, loss of appetite NEG- fever, sob, cp, cough, sick contacts, PMD: Dr. Kenney Podiatry: Juan PMHx: HTN, HLD, DM, depression, anxiety, and vertigo SurgHx: L knee surgery x2; c section 1995 FamHx: Mother- colon and breast cancer; sister-breast cancer SocHx: denies tobacco, alcohol, and drug use; lives with sonManuel, in [place]. allergies: anesthetics, ibuprofen, morphine, nsaids, codeine Medications: Metformin 1000mg PO BID, Glimepiride 2mg PO BID, Pravastatin 10mg PO daily, Lidinopril 10mg QD HOSPITAL COURSE: 62 F with a PMHx of htn, hld, dm, depression and vertigo presents to the ED after sent in from Dr Martinez propulsion engineer for her L toe wound and ankle pain ascending For the pt's Diabetic Foot Ulcer, IV Vanco and Zosyn given in ED, IV Vanco 1g q12 (trough was 16.3) and IV Zosyn 3.375mg q6, Dr Martinez Podiatry consulted Bactroban for topical us with Betadine with compression wrap . ID consult was Dr. Marcia luther for outpt infusion . Afebrile- monitor vitals PICC Line Ordered for outpt abx infusion. Dr Bales and PICC line nurse gino refused due to to unconfirmed lidocaine allergy, Pt to recieved oral Zyvox and Cipro course instead. For Pt's Hx of Hypertension gave Lisinopril 10mg PO QD For Pt's Hx of DM, Metformin Held Glipizide held, Maintained euglycemia 120- 140s, obtained a 6.1 A1C, Accuchex ACHS, started Low Dose- ISS Hx of HLD started Crestor 2.5mg PO HS, obtained a Normal Lipid Panel For prophylaxis gave Heparin 5000u sc q8 and florastor 250 PO BID- do not give within 2 hrs of antibiotics. Also got PT/OT eval and treat IMAGING AND DX: Xray: bone involvement Wound cultures prelim: gram pos cocci and gram neg rods, pending sensitivity LE duplex neg for DVT GAMALIEL normal MRI L foot: Big toe osteomyelitis, metatarsal involvment, lisfranc tear PLAN: Pt is to be discharged home on the following Medications Zyvox 600mg by mouth for 6 weeks@ 8am and 8pm Cipro 500mg by mouth for 6 weeks @ 8am and 8pm Glimeperide by mouth @ 8am and 8pm Lisinopril 10 mg by mouth @ 8am Metformin 1000mg by mouth @ 8am and 8pm Pt is to Follow up in office with Dr Martinez Podiatry within one week Pt is to Follow up in office with Dr Kennedy in office within one week Pt is to follow up in office with Dr Kenney her PMD within 2 weeks, please obtain referral for Allergy/Immuno specialist Pt is to have weekly Complete Blood Counts to monitor for possible pancytopenia adverse effect If sever symptoms or side effects arise, please seek medical attention immediately. Take care and be well THIS IS A SUMMARY PLEASE REFER TO [facility] FOR COMPLETE RECORDS Discharge Exam - Head Exam Head Exam: NORMOCEPHALIC - Additional Findings Additional findings: - Constitutional Appears: Well, Non-toxic, No Acute Distress - Head Exam Head Exam: ATRAUMATIC, NORMAL INSPECTION - Eye Exam Eye Exam: EOMI, Normal appearance. absent: Scleral icterus - ENT Exam ENT Exam: Mucous Membranes Moist, Normal Oropharynx - Neck Exam Neck exam: Positive for: Normal Inspection. Negative for: Tenderness, Thyromegaly - Respiratory Exam Respiratory Exam: Clear to Auscultation Bilateral, NORMAL BREATHING PATTERN - Cardiovascular Exam Cardiovascular Exam: RRR, +S1, +S2 - GI/Abdominal Exam GI & Abdominal Exam: Soft. absent: Firm, Rigid, Tenderness - Extremities Exam Extremities exam: Positive for: calf tenderness, pedal edema, tenderness (L ankle ), pedal pulses present - Expanded Lower Extremities Exam Left Lower Leg Exam: Alhaji's sign Foot/Toe exam: swelling (2x2cm ulcera medial aspect of great toe, nontender, nonerythematous, no bleed) - Back Exam Back exam: absent: CVA tenderness (R) - Neurological Exam Neurological exam: Alert, CN II-XII Intact, Oriented x3 - Psychiatric Exam Psychiatric exam: Normal Affect, Normal Mood - Skin Skin Exam: Normal Color, Warm Discharge Plan - Discharge Medications Prescriptions: Ciprofloxacin HCl [Cipro] 500 mg PO BID #84 tablet Glimepiride [amaRYL] 4 mg PO BID #60 tab Linezolid [Zyvox] 600 mg PO BID #84 tab Lisinopril [Zestril] 1 tab PO DAILY #30 tab MetFORMIN [glucoPHAGE] 1,000 mg PO BID #60 tab Pravastatin Sodium [Pravachol] 10 tab PO DAILY #30 tab Saccharomyces Boulardi [Florastor] 250 mg PO DAILY #42 cap - Follow Up Plan Condition: STABLE Disposition: HOME/ ROUTINE Instructions: Osteomyelitis (DC) Additional Instructions: PLAN: Pt is to be discharged home on the following Medications Zyvox 600mg by mouth for 6 weeks@ 8am and 8pm Cipro 500mg by mouth for 6 weeks @ 8am and 8pm Glimeperide by mouth @ 8am and 8pm Lisinopril 10 mg by mouth @ 8am Metformin 1000mg by mouth @ 8am and 8pm Pt is to Follow up in office with Dr Martinez Podiatry within one week Pt is to Follow up in office with Dr Kennedy in office within one week Pt is to follow up in office with Dr Kenney her PMD within 2 weeks, please obtain referral for Allergy/Immuno specialist Pt is to have weekly Complete Blood Counts to monitor for possible pancytopenia adverse effect If sever symptoms or side effects arise, please seek medical attention immediately. Take care and be well Referrals: David Martinez DPM [Staff Provider] - Max Kennedy MD [Staff Provider] - Ben Kenney MD [Staff Provider] -
[2018-06-15] MEDS: Saccharomyces Boulardi 250 mg Cap PO SCH (09:38)
--- NOTE | 2018-06-15 12:04 | CP.PCM.PN ---
Subjective - Date & Time of Evaluation Date of Evaluation: 06/15/18 Time of Evaluation: 11:59 - Subjective Subjective: Podiatry Progress note: Dr. Martinez 62 year old female seen and evaluated at bedside with medicine team at bedside for left hallux wound. Patient is AAOx3 and appears in NAD. Reports that her dressing was changed by the nurse this morning. Patient complains of not being able to get a PICC line today. Denies of recent F/N/V/C/SOB/CP. No new pedal complains. Objective - Vital Signs/Intake and Output Vital Signs (last 24 hours): Temp Pulse Resp BP Pulse Ox 97.7 F 78 21 136/99 H 97 06/15/18 07:37 06/15/18 09:37 06/15/18 07:37 06/15/18 09:37 06/15/18 07:37 Intake and Output: 06/15/18 06/15/18 06:59 18:59 Intake Total 700 Balance 700 - Medications Medications: Current Medications Acetaminophen (Tylenol 325mg Tab) 650 mg PO Q6 PRN PRN Reason: Pain, moderate (4-7) Dextrose (Dextrose 50% Inj) 0 ml IV STAT PRN; Protocol PRN Reason: Hypoglycemia Protocol Dextrose (Glutose 15) 0 gm PO ONCE PRN; Protocol PRN Reason: Hypoglycemia Protocol Docusate Sodium (Colace) 100 mg PO Q12H [facility] Last Admin: 06/15/18 09:38 Dose: 100 mg Glucagon (Glucagen Diagnostic Kit) 0 mg IM STAT PRN; Protocol PRN Reason: Hypoglycemia Protocol Piperacillin Sod/Tazobactam Sod (Zosyn 3.375 Gm Iv Premix) 3.375 gm in 50 mls @ 100 mls/hr IVPB Q6H MATTHEW; Protocol Last Admin: 06/15/18 08:14 Dose: 100 mls/hr Vancomycin HCl 1,000 mg/ (Sodium Chloride) 250 mls @ 166.6 mls/hr IVPB Q12H MATTHEW; Protocol Last Admin: 06/15/18 03:07 Dose: 166.6 mls/hr Insulin Human Regular (Novolin R) 0 unit SC ACHS MATTHEW; Protocol Last Admin: 06/15/18 07:21 Dose: Not Given Lisinopril (Zestril) 10 mg PO DAILY [facility] Last Admin: 06/15/18 09:38 Dose: 10 mg Mupirocin (Bactroban Ointment) 0 gm EXT DAILY [facility] Last Admin: 06/15/18 09:39 Dose: 1 applic Rosuvastatin Calcium (Crestor) 2.5 mg PO HS [facility] Last Admin: 06/14/18 22:23 Dose: 2.5 mg Saccharomyces Boulardii (Florastor) 250 mg PO BID [facility] Last Admin: 06/15/18 09:38 Dose: 250 mg - Labs Labs: 06/15/18 08:17 06/15/18 08:17 PT 11.9 SECONDS (9.7-12.2) 06/11/18 14:34 INR 1.1 06/11/18 14:34 APTT 32 SECONDS (21-34) 06/11/18 14:34 - Constitutional Appears: Well, Non-toxic, No Acute Distress - Extremities Exam Additional comments: Dressing to b/l LE is clean, dry and intact. No strike-through noted - Neurological Exam Neurological Exam: Alert, Awake, Oriented x3 - Psychiatric Exam Psychiatric exam: Normal Affect, Normal Mood Assessment and Plan - Assessment and Plan (Free Text) Assessment: 62 year old female evaluated for left hallux wound (saenz 1) - infected Plan: Patient seen and evaluated with attending Dr. Martinez Labs, vitals and charts reviewed - VSS, WBC @ 5.1 Foot X-rays: - Demonstrates erosion/fragmentation on medial proximal aspect of the 1st distal phalanx possibly consistent with OM MRI ordered - Increase in signal intensity on T2 as well as on STIR image at the distal phalanx of the left hallux consistent with OM GAMALIEL/PVR: - R: 1.05, L: 1.06 with good waveform/amplitude - No evidence of arterial insufficiency in b/l LE Ankle X-rays: - mild errosive changes noted on the medial aspect of the ankle distal to medial mal within medial clear space consistent with possible chronic ankle injury Wound cultures left hallux: MRSA, Acinetobacter. Baumanni ID consult - Dr. Kennedy - IV abx as per ID Dressing to b/l LE is clean, dry and intact with no strike through noted Patient may require religious ritual slaughterer IV abx treatment as patient is refusing any form of surgical intervention at this time - Patient may require alternative religious ritual slaughterer oral treatment as PICC line is not an option Stable from podiatry standpoint WBAT in surgical shoe to the LLE Upon discharge, patient educated to follow up with Dr. Martinez in his [place] office - Patient demonstrated verbal understanding Will continue to monitor patient while in-house
[2018-06-15 16:39] VITALS: BP 158/75; PULSE 75; RESP 20; TEMP 97.9; O2SAT 93
== END 2018-06-15 16:45 | disposition home or self-care (01) | DRG 566 ==
LOC: C.ER 13:43 → C.9E 15:35 → C.6T 21:31 → C.9E 21:48 → C.5S 22:11
PROVIDERS: ADMIT Hospitalist; ATTEND Hospitalist
DX: E11.69 Type 2 diabetes mellitus with other specified complication (principal); M86.172 Other acute osteomyelitis, left ankle and foot; L97.529 Non-pressure chronic ulcer of other part of left foot with unspecified severity; E11.621 Type 2 diabetes mellitus with foot ulcer; B95.61 Methicillin susceptible Staphylococcus aureus infection as the cause of diseases classified elsewhere; M17.12 Unilateral primary osteoarthritis, left knee; Z80.3 Family history of malignant neoplasm of breast; Z87.891 Personal history of nicotine dependence; I10 Essential (primary) hypertension; E78.5 Hyperlipidemia, unspecified

== ENCOUNTER 2018-07-19 14:29 | Outpatient (CLI) | payer OTHER | END 2018-07-19 14:30 | disposition home or self-care (01) | LOC: C.MAMMO 14:30 | DX: N61.0 Mastitis without abscess (principal) ==

== ENCOUNTER 2018-09-24 13:09 | Outpatient (CLI) | payer OTHER | END 2018-09-24 13:10 | disposition home or self-care (01) | LOC: C.RADIC 13:09 ==

== ENCOUNTER 2018-10-28 00:28 | Emergency (ER) | payer OTHER ==
[2018-10-28 00:28] VITALS: BMI 29.2
[2018-10-28 01:36] LABS: ALB/GLOB RATIO 1.1 (1.0-2.1); ALBUMIN 4.2 g/dL (3.5-5.0); ALT/SGPT 12 U/L (9-52); AST/SGOT 26 U/L (14-36); BLOOD UREA NITROGEN 30 mg/dL (7-17); CALCIUM 9.4 mg/dl (8.6-10.4); GFR NON-AFRICAN AMERICAN 33
[2018-10-28 01:46] LABS: ACETAMINOPHEN < 10.0 ug/mL (10.0-30.0); SALICYLATE < 1.0 mg/dL 1
[2018-10-28 01:55] LABS: BASO # 0.1 K/uL (0.0-0.2); BASO % 0.7 % (0.0-2.0); EOS # 0.1 K/uL (0.0-0.7); EOS % 1.7 % (0.0-4.0); HEMOGLOBIN 10.5 g/dL (11.0-16.0); LYMPH # 1.5 K/uL (1.0-4.3); LYMPH % 18.1 % (20.0-40.0); MEAN CELL VOLUME 88.6 fL (81.0-99.0); MEAN CORPUSCULAR HEMOGLOBIN 30.2 pg (27.0-31.0); MEAN CORPUSCULAR HGB CONC 34.1 g/dL (33.0-37.0); MEAN PLATELET VOLUME 7.1 fL (7.2-11.7); MONO # 0.5 K/uL (0.0-0.8); MONO % 5.9 % (0.0-10.0); NEUT # 6.2 K/uL (1.8-7.0); NEUT % 73.6 % (50.0-75.0); RBC 3.48 Mil/uL (3.80-5.20); RED CELL DISTRIBUTION WIDTH 12.8 % (11.5-14.5); WHITE BLOOD COUNT 8.5 K/uL (4.8-10.8)
[2018-10-28 02:16] LABS: SQUAMOUS EPITHIAL 11 /hpf (0-5); URINE BACTERIA MANY (<OCC); URINE BILIRUBIN NEGATIVE (NEGATIVE); URINE BLOOD NEGATIVE (NEGATIVE); URINE CLARITY Hazy (Clear); URINE COLOR Yellow (YELLOW); URINE GLUCOSE (UA) 1+ mg/dL (Normal); URINE HYALINE CAST >20 /lpf (0-2); URINE LEUKOCYTE ESTERASE 3+ Leu/uL (Negative); URINE PROTEIN NEGATIVE (NEGATIVE); URINE UROBILINOGEN NORMAL mg/dL (0.2-1.0)
[2018-10-28 02:24] LABS: BARBITURATES, UR NEGATIVE (NEGATIVE); BENZODIAZEPINES, UR NEGATIVE (NEGATIVE); OPIATES, UR NEGATIVE (NEGATIVE); PHENCYCLIDINE, UR NEGATIVE (NEGATIVE)
--- NOTE | 2018-10-28 03:19 | C.PDOC ---
History Of Present Illness 62 y/o female comes in to ED complaining she feels depressed and has anxiety about many life issues. Patient has history of depression and had multiple prior visits with her and her son. Denies any physical complaints at this time. Time Seen by Provider: 10/28/18 01:02 Chief Complaint (Nursing): Psychiatric Evaluation History Per: Patient History/Exam Limitations: no limitations Onset/Duration Of Symptoms: Days Current Symptoms Are (Timing): Still Present Past Medical History Reviewed: Historical Data, Nursing Documentation, Vital Signs Vital Signs: Last Vital Signs Temp 98.9 F 10/28/18 00:36 Pulse 110 H 10/28/18 00:36 Resp 14 10/28/18 00:36 BP 203/110 H 10/28/18 00:36 Pulse Ox 95 10/28/18 00:36 - Medical History PMH: Anxiety, Arthritis (L KNEE), Depression, Diabetes (Type 2), HTN, Hypercholesterolemia Denies: Hepatitis, HIV, Chronic Kidney Disease, Seizures, Sexually Transmitted Disease Surgical History: - [facility] Procedures GROUP PSYCHOTHERAPY (08/14/17) INDIVIDUAL PSYCHOTHERAPY, COGNITIVE-BEHAVIORAL (08/14/17) INDIVIDUAL PSYCHOTHERAPY, SUPPORTIVE (08/14/17) INSERTION OF INFUSION DEV INTO SUP VENA CAVA, PERC APPROACH (01/18/17) OTH NONOPER CARD AND VASC MEASURE (01/07/14) OTHER SKIN & SUBQ I D (09/29/13) Family History: States: No Known Family Hx - Social History Hx Tobacco Use: No Hx Alcohol Use: No Hx Substance Use: No - Immunization History Hx Tetanus Toxoid Vaccination: (unk) Hx Influenza Vaccination: No Hx Pneumococcal Vaccination: (unk) Review Of Systems Except As Marked, All Systems Reviewed And Found Negative. Psych: Positive for: Anxiety, Depression. Negative for: Suicidal ideation Physical Exam - Physical Exam Appears: Non-toxic, No Acute Distress, Other (elderly white female, anxious and tearful) Skin: Warm, Dry Head: Atraumatic Eye(s): bilateral: Normal Inspection Oral Mucosa: Moist Neck: Supple Cardiovascular: Rhythm Regular, No Murmur Respiratory: Normal Breath Sounds, No Rales, No Rhonchi, No Wheezing Gastrointestinal/Abdominal: Soft, No Tenderness Extremity: Bilateral: Atraumatic, Normal ROM Neurological/Psych: Oriented x3, Normal Speech ED Course And Treatment - Laboratory Results Result Diagrams: 10/28/18 01:20 10/28/18 01:20 Lab Results: Total Bilirubin 0.7 mg/dL (0.2-1.3) 10/28/18 01:20 AST 26 U/L (14-36) 10/28/18 01:20 ALT 12 U/L (9-52) 10/28/18 01:20 Alkaline Phosphatase 87 U/L (38-126) 10/28/18 01:20 Total Protein 7.9 g/dL (6.3-8.3) 10/28/18 01:20 Albumin 4.2 g/dL (3.5-5.0) 10/28/18 01:20 Globulin 3.7 gm/dL (2.2-3.9) 10/28/18 01:20 Albumin/Globulin Ratio 1.1 (1.0-2.1) 10/28/18 01:20 Urine Color Yellow (YELLOW) 10/28/18 02:04 Urine Clarity Hazy (Clear) 10/28/18 02:04 Urine pH 5.0 (5.0-8.0) 10/28/18 02:04 Ur Specific [place] 1.012 (1.003-1.030) 10/28/18 02:04 Urine Protein Negative mg/dL (NEGATIVE) 10/28/18 02:04 Urine Glucose (UA) 1+ mg/dL (Normal) 10/28/18 02:04 Urine Ketones Negative mg/dL (NEGATIVE) 10/28/18 02:04 Urine Blood Negative (NEGATIVE) 10/28/18 02:04 Urine Nitrate Negative (NEGATIVE) 10/28/18 02:04 Urine Bilirubin Negative (NEGATIVE) 10/28/18 02:04 Urine Urobilinogen Normal mg/dL (0.2-1.0) 10/28/18 02:04 Ur Leukocyte Esterase 3+ Pablo/uL (Negative) H 10/28/18 02:04 Urine WBC (Auto) 98 /hpf (0-5) H 10/28/18 02:04 Urine RBC (Auto) 6 /hpf (0-3) H 10/28/18 02:04 Ur Squamous Epith Cells 11 /hpf (0-5) H 10/28/18 02:04 Urine Bacteria Many (<OCC) H 10/28/18 02:04 Hyaline Casts >20 /lpf (0-2) H 10/28/18 02:04 Lab Interpretation: Abnormal (98 WBC's) O2 Sat by Pulse Oximetry: 95 (RA) Pulse Ox Interpretation: Normal Reevaluation Time: 06:37 Reassessment Condition: Improved Medical Decision Making Medical Decision Making: Plan: --Labs --Glucose POC --UA Discussed with scaffold worker at 3am, deferred admission and would like patient to follow up outpatient with Dr. Roach. denies urinary frequency/burning defer treating asymptomatic pyuria Disposition Doctor Will See Patient In The: Office Counseled Patient/Family Regarding: Studies Performed, Diagnosis - Disposition Disposition: HOME/ ROUTINE Disposition Time: 06:38 Condition: GOOD Forms: [facility] (Chilean) - Clinical Impression Clinical Impression: Anxiety and depression - Scribe Statement The provider has reviewed the documentation as recorded by the Larry Zuleta Provider Attestation: All medical record entries made by the Larry were at my direction and personally dictated by me. I have reviewed the chart and agree that the record accurately reflects my personal performance of the history, physical exam, medical decision making, and the department course for this patient. I have also personally directed, reviewed, and agree with the discharge instructions and disposition.
[2018-10-28 04:28] VITALS: RESP 16
[2018-10-28 06:22] VITALS: BP 149/81; PULSE 73; TEMP 98.3
[2018-10-28 06:38] VITALS: O2SAT 95
== END 2018-10-28 06:55 | disposition home or self-care (01) ==
LOC: C.ER 00:28
DX: F41.9 Anxiety disorder, unspecified (principal); F32.9 Major depressive disorder, single episode, unspecified

== ENCOUNTER 2018-11-19 15:51 | Outpatient (CLI) | payer OTHER | END 2018-11-19 15:52 | disposition home or self-care (01) | LOC: C.MRIC 15:51 | DX: L03.116 Cellulitis of left lower limb (principal); L89.893 Pressure ulcer of other site, stage 3; E11.49 Type 2 diabetes mellitus with other diabetic neurological complication; M79.672 Pain in left foot ==